=== PATIENT | male | born 1990 | race African-American/Black ===

== ENCOUNTER 2020-12-17 10:29 | Emergency (ER) | payer MEDICAID, SELFPAY ==
[2020-12-17 11:09] VITALS: BP 164/92; PULSE 102; RESP 20; TEMP 36.7; O2SAT 96; BMI 61.0
--- NOTE | 2020-12-17 13:45 | ED.GENADULT ---
HPI - General Adult General Chief complaint: Skin/Abscess/Foreign Body Stated complaint: L KNEE LEAKING Time Seen by Provider: 12/17/20 13:36 Source: patient Mode of arrival: ambulatory Limitations: no limitations History of Present Illness HPI narrative: 30-year-old male who presents emergency department for evaluation of fluid leaking from my leg . Patient states that both his legs are very swollen. He states that the swelling is gotten worse since August 2020 ( 4 months). He states that he had breakdown of the skin on his left posterior calf region and this area of breakdown has been leaking fluid. He states that the fluid leak is gotten worse. He states that he does have constant, bilateral pain in his lower extremities. He denied fever, chills, chest pain, shortness of breath. He denied nausea or vomiting. Related Data Previous Rx's Medication Instructions Recorded furosemide [Lasix] 80 mg PO DAILY #30 tab 12/17/20 Allergies Allergy/AdvReac Type Severity Reaction Status Date / Time No Known Allergies Allergy Unverified 03/05/20 16:26 Review of Systems Review of Systems: Yes all other systems are reviewed and are negative [facility] Past Medical History [facility] Narrative: Past medical history: Morbid obesity. Social history: He denies tobacco, alcohol and drug use. Medical History (Updated 12/17/20 @ 16:46 by Madi Knutson MD) No known health problems Social History Social History Advance Directives: Yes Advance Directives Information Provided: No Advance Directives on File: No Physical Exam Vital Signs: Vital Signs: Last Vital Signs Temp 98.1 F 12/17/20 11:09 Pulse 102 H 12/17/20 11:09 Resp 20 12/17/20 11:09 BP 164/92 H 12/17/20 11:09 Pulse Ox 96 12/17/20 11:09 Body Mass Index 61.0 Const: General: cooperative Nutritional Appearance: obese morbidly obese Orientation/consciousness: oriented to person and oriented to place Limitations: no limitations HENMT: Head: Yes normal to inspection, Yes normocephalic and Yes atraumatic Ears: external ears normal General nose exam: Normal external nose present Face and sinus: Yes normal facial exam Mouth: Normal oral and palatal mucosa present Throat: Yes posterior oropharynx normal Eyes: Periorbital: periorbital findings normal Eyelids: Yes eyelids normal Conjunctivae: conjunctivae normal Sclerae: sclerae normal Corneas: corneas normal Pupils: Equal, round and reactive pupils present Direct Ophthalmoscopy: normal light reflex Neck: Neck: Yes full ROM, Yes no lymphadenopathy, Yes no meningeal signs, Yes trachea midline and Yes supple Chest: Chest palpation & inspection: normal inspection of the chest and normal palpation of entire chest wall Resp: Effort & Inspection: normal respiratory effort and able to speak in complete sentences Auscultation: clear to auscultation bilaterally Cardio: Rate: regular rate Rhythm: regular rhythm Heart sounds: S1 normal heart sound present, S2 normal heart sound present and no murmurs GI: Inspection: Yes normal to inspection Palpation (GI): Soft to palpation, nontender, no guarding, not rigid and No hepatosplenomegaly present : General: Yes no CVA tenderness Back/Spine/Pelvis: Back: no CVA tenderness Cervical Spine: normal cervical lordosis Thoracic/Lumbar Spine: thoracic and lumbar spine normal to inspection Neuro: General: oriented to person, oriented to place and no meningeal signs Cranial nerves: Yes CN's II-XII intact bilaterally and Yes Equal, round and reactive pupils present Cognition (Neuro): normal cognition Motor exam (neuro): 5/5 motor strength present throughout Extrem: Other: Patient's lower extremities are large, they do appear to be swollen he has trace pitting edema bilaterally, the patient has breakdown of the skin in the left posterior calf area, this area is leaking yellow fluid, it does not appear to be infected.. Psych: Appearance: well kempt Mental Status: mental status grossly normal Speech and movement: Normal speech and movement present Affect: normal affect Attitude: cooperative Thought process: Normal thought process present Thought content: Normal thought content present Course Course Course Narrative: 30-year-old male who presents emergency department for evaluation of pain and swelling was lower extremities x4 months with leakage of fluid from the left lower extremity x4 months. Patient's physical examination revealed morbid obesity with peripheral edema to both lower extremityand breakdown of the skin over the posterior aspect of the left calf leakage of yellowish fluid. I did order laboratory evaluation includes CBC, CMP and a urinalysis. 1638: The patient's CBC was normal. His comprehensive metabolic panel revealed normal kidney function and normal LFTs. The patient will be started on Lasix 80 mg once a day for 1 month. He will be referred to the wound clinic for evaluation of his nonhealing wound of his left calf area. Medical Decision Making Lab Data Result diagrams: 12/17/20 13:50 12/17/20 13:50 Labs: Lab Results 12/17/20 12/17/20 Range/Units 13:50 13:50 WBC 6.9 (4.8-10.8) X10*3/uL RBC 4.83 (4.60-5.80) X10*6/uL Hgb 13.6 L (14.0-18.0) g/dl Hct 43.6 (42-52) % MCV 90.3 (80-98) fL MCH 28.2 (27.0-33.0) pg MCHC 31.2 (31.0-36.0) g/dl RDW 15.1 (11.0-16.0) % Plt Count 310 (160-400) X10*3/uL MPV 9.4 (9.4-12.4) fL Immature Gran % (Auto) 0.6 H (0.0-0.4) % Neut % (Auto) 57.7 (45-73) % Lymph % (Auto) 32.8 (20-40) % [place] % (Auto) 8.3 (2-11) % Eos % (Auto) 0.3 (0-4) % Baso % (Auto) 0.3 (0-2) % Lymph # (Auto) 2.3 (1.2-4.9) X10*3/uL [place] # (Auto) 0.6 (0.1-1.2) X10*3/uL Eos # (Auto) 0.0 (0.0-0.4) X10*3/uL Baso # (Auto) 0.0 (0.0-0.2) X10*3/uL Abs Immat Gran (auto) 0.04 H (0.00-0.03) X10*3/uL Absolute Neuts (auto) 4.0 (2.0-8.3) X10*3/uL Absolute Nucleated RBC 0.000 (0.0-0.012) X10*3/uL Nucleated RBC % (auto) 0.0 (0.0-0.2) /100WBC Sodium 142 (135-145) mmol/L Potassium 4.6 (3.3-5.1) mmol/L Chloride 109 H (96-108) mmol/L Carbon Dioxide 26 (22-29) mmol/L Anion Gap 12 (12-20) BUN 9 (9-16) mg/dL Creatinine 1.02 (0.5-1.4) mg/dL Estim Creat Clear Calc 188.5 Estimated GFR > 60 Random Glucose 92 (60-115) mg/dL Calcium 9.9 (8.4-10.2) mg/dL Total Bilirubin 0.5 (0.0-1.0) mg/dL AST 17 (5-37) U/L ALT 20 (0-40) U/L Alkaline Phosphatase 101 (39-117) U/L Total Protein 7.5 (6.5-8.0) g/dL Albumin 3.7 (3.5-5.0) g/dL Discharge Plan Discharge Clinical Impression: Edema, peripheral Non-healing wound of lower extremity Qualifiers: Laterality: left Patient Disposition: Home, Self-Care Instructions: Leg Edema (ED) Additional Instructions: The patient left emergency department prior to getting his discharge papers. I did call his house and did discuss with his grandmother the treatment plan in the follow-up plan. Prescriptions: New furosemide [Lasix] 80 mg tablet 80 mg PO DAILY Qty: 30 RF: 0 Referrals: Estela Westbrook PA [Physician Pattern Technician] - 1 week ( peripheral edema, non-healing wound to left posterior calf, started on Lasix 60 mg once a day for 1 month. patient needs evaluation for non-healing wound)
[2020-12-17 13:53] LABS: MANUAL DIFF FLAG NO
[2020-12-17 13:55] LABS: Basophils Percent Auto 0.3 % (0-2); Eosinophils Percent Auto 0.3 % (0-4); Hematocrit 43.6 % (42-52); Hemoglobin 13.6 g/dl (14.0-18.0); Imm Gran Abs Auto 0.04 X10*3/uL (0.00-0.03); Imm Gran Pct Auto 0.6 % (0.0-0.4); Lymphocytes Absolute Auto 2.3 X10*3/uL (1.2-4.9); Lymphocytes Percent Auto 32.8 % (20-40); Mean Corpuscular HGB Conc 31.2 g/dl (31.0-36.0); Mean Corpuscular Hemoglobin 28.2 pg (27.0-33.0); Mean Corpuscular Volume 90.3 fL (80-98); Mean Platelet Volume 9.4 fL (9.4-12.4); Monocytes Absolute Auto 0.6 X10*3/uL (0.1-1.2); Monocytes Percent Auto 8.3 % (2-11); Neutrophils Percent Auto 57.7 % (45-73); Platelet Count 310 X10*3/uL (160-400); Red Blood Count 4.83 X10*6/uL (4.60-5.80); Red Cell Distribution Width 15.1 % (11.0-16.0); White Blood Count 6.9 X10*3/uL (4.8-10.8)
[2020-12-17 14:21] LABS: Alanine Aminotransferase 20 U/L (0-40); Albumin Level 3.7 g/dL (3.5-5.0); Alkaline Phosphatase 101 U/L (39-117); Anion Gap 12 (12-20); Aspartate Amino Transferase 17 U/L (5-37); Bilirubin Total 0.5 mg/dL (0.0-1.0); Blood Urea Nitrogen 9 mg/dL (9-16); Calcium 9.9 mg/dL (8.4-10.2); Carbon Dioxide 26 mmol/L (22-29); Chloride 109 mmol/L (96-108); Creatinine Clr Calc Pharmacy 188.5; Estimated Glomerular Filt Rate > 60; Glucose Random 92 mg/dL (60-115); Potassium 4.6 mmol/L (3.3-5.1); Sodium 142 mmol/L (135-145); Total Protein 7.5 g/dL (6.5-8.0)
== END 2020-12-17 17:02 | disposition home or self-care (01) ==
PROVIDERS: Emergency Provider Emergency Medicine Emergency Medical Services
DX: R60.0 Localized edema (principal); E66.01 Morbid (severe) obesity due to excess calories; Z68.44 Body mass index [BMI] 60.0-69.9, adult
CPT/HCPCS: 36415; 80053; 85025; 99283

== ENCOUNTER 2021-02-02 14:05 | Inpatient (IN) | payer MEDICAID, SELFPAY ==
--- NOTE | ~2021-02-02 | US_ITS ---
EXAMINATION: US VENOUS ULTRASOUND WITH DOPPLER LOWER EXTREMITY, LEFT CLINICAL INFORMATION: Left lower extremity pain. COMPARISON: None TECHNIQUE: Ultrasound of the deep veins is performed from the hip to the calf with compression sonography and color and pulse Doppler assessment. Spectral analysis with color-flow imaging is performed. Imaging is significantly limited due to body habitus. FINDINGS: Due to technical limitations, the left common femoral, proximal greater saphenous, profunda femoral, proximal femoral, posterior tibial and peroneal veins are not visualized. The mid and distal femoral and popliteal vein segments show pulse and color Doppler flow and are as well poorly visualized on grayscale imaging. There is no significant popliteal fossa cyst. If the patient's symptoms persist, followup ultrasound in 5 days 7 days might be of value to exclude proximal propagation from a non-visualized calf vein. US/US venous duplex LE IMPRESSION: Significantly limited examination, with nonvisualization of multiple left lower extremity venous segments, as above. Faint patency is demonstrated with color Doppler flow of the left mid and distal femoral and popliteal veins.
--- NOTE | ~2021-02-02 | XR_ITS ---
EXAMINATION: XR CHEST CLINICAL INFORMATION: Tachycardia, edema COMPARISON: Chest radiographs 12/09/2018 TECHNIQUE: Portable upright AP view of the chest was obtained. FINDINGS: There are low lung volumes. The lungs appear grossly clear with no airspace consolidation or groundglass opacity. No vascular congestion or effusion. The heart is normal in size. The hilar and mediastinal contours and visualized bony structures are unremarkable. XR/XR chest 1V IMPRESSION: Unremarkable examination.
[2021-02-02 14:09] VITALS: PULSE 135; RESP 18; O2SAT 96; BMI 67.8
[2021-02-02 14:17] VITALS: BP 136/57
--- NOTE | 2021-02-02 14:36 | ECG_ITS ---
Test Reason : TACHYCARDIA Blood Pressure : / mmHG Vent. Rate : 131 BPM Atrial Rate : 131 BPM P-R Int : 142 ms QRS Dur : 088 ms QT Int : 294 ms P-R-T Axes : 058 033 021 degrees QTc Int : 434 ms Sinus tachycardia Otherwise normal ECG No previous ECGs available Referred By: Generic ED Physician Electronically Signed By:AURA ROBLEDO
--- NOTE | 2021-02-02 14:56 | ED.GENADULT ---
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 No vomiting no diarrhea no abdominal pain no other symptoms Related Data Previous Rx's Medication Instructions Recorded furosemide 80 mg tablet (Lasix) 80 mg PO DAILY #30 tab 12/17/20 Allergies Allergy/AdvReac Type Severity Reaction Status Date / Time No Known Allergies Allergy Verified 02/02/21 14:14 Review of Systems Review of Systems: Yes all other systems are reviewed and are negative [facility] Past Medical History Medical History No known health problems Social History Social History Advance Directives: No Advance Directives Information Provided: Yes Physical Exam Vital Signs: Vital Signs: Last Vital Signs Temp 103.2 F H 02/02/21 16:09 Pulse 126 H 02/02/21 16:09 Resp 14 02/02/21 16:09 BP 146/47 H 02/02/21 16:09 Pulse Ox 97 02/02/21 16:09 Body Mass Index 67.8 Appearance: Alert. Oriented X3. No acute distress. Morbidly obese no distress Eyes: No pallor or icterus ENT: Pharynx normal. Oral Mucosa moist Neck: Normal inspection. Neck supple. CVS: Normal heart rate and rhythm. Pulses normal. Respiratory: No respiratory distress. Equal air entry bilateral, no wheezing/rales/rhonchi Abdomen: Soft and nontender. Bowel sounds are present, no mass palpable, no CVA tenderness Skin: Skin warm and dry. Normal skin color. Normal skin turgor. Extremities: Nonpitting lymphedema bilateral lower extremity, 4 x 4 cm superficial ulcer with granulation tissue at back of the left calf. Erythema and warmth of the left leg all the way to the knee with tenderness Neuro: Oriented X 3. No motor deficit. No sensory deficit.No cerebellar signs , cranial nerves II-XII intact Medical Decision Making MDM Narrative Medical decision making narrative: Patient with left leg cellulitis with sepsis not in septic shock will admit patient for IV antibiotics 3 L of IV fluid were given according to ideal body weight Lab Data Lab results reviewed: Yes I reviewed the patient's lab results. Result diagrams: 02/02/21 14:53 02/02/21 14:53 Labs: Lab Results 02/02/21 02/02/21 02/02/21 Range/Units 14:53 14:53 14:53 WBC 15.0 H (4.8-10.8) X10*3/uL RBC 4.33 L (4.60-5.80) X10*6/uL Hgb 12.2 L (14.0-18.0) g/dl Hct 38.1 L (42-52) % MCV 88.0 (80-98) fL MCH 28.2 (27.0-33.0) pg MCHC 32.0 (31.0-36.0) g/dl RDW 15.3 (11.0-16.0) % Plt Count 244 (160-400) X10*3/uL MPV 9.3 L (9.4-12.4) fL Immature Gran % (Auto) Cancelled Neut % (Auto) Cancelled Lymph % (Auto) Cancelled [place] % (Auto) Cancelled Eos % (Auto) Cancelled Baso % (Auto) Cancelled Lymph # (Auto) Cancelled [place] # (Auto) Cancelled Eos # (Auto) Cancelled Baso # (Auto) Cancelled Abs Immat Gran (auto) Cancelled Absolute Neuts (auto) Cancelled Absolute Nucleated RBC 0.000 (0.0-0.012) X10*3/uL Nucleated RBC % (auto) 0.0 (0.0-0.2) /100WBC Neutrophils % (Manual) 50 (45-73) % Band Neutrophils % 41 H (3-5) % Lymphocytes % (Manual) 1 L (20-40) % Monocytes % (Manual) 1 L (2-11) % Metamyelocytes % 7 % Abs Neuts (Manual) 13.7 H (2.2-7.9) X10*3/uL Lymphocytes # (Manual) 0.2 L (0.6-4.8) X10*3/uL Monocytes # (Manual) 0.2 (0.0-1.2) X10*3/uL Metamyelocytes # 1.1 X10*3/uL Platelet Estimate NORMAL (NORMAL) Plt Morphology Comment NOTED RBC Morphology NORMAL Sodium 134 L (135-145) mmol/L Potassium 4.2 (3.3-5.1) mmol/L Chloride 99 (96-108) mmol/L Carbon Dioxide 26 (22-29) mmol/L Anion Gap 13 (12-20) BUN 19 H D (9-16) mg/dL Creatinine 1.50 H (0.5-1.4) mg/dL Estim Creat Clear Calc 137.2 Estimated GFR 54 Random Glucose 99 (60-115) mg/dL Lactic Acid (0.5-2.0) mmol/L Calcium 9.0 D (8.4-10.2) mg/dL Troponin I High Sens 16.0 (<3.5-35.0) ng/L COVID-19 (AILEEN) (Negative) COVID-19 Clin Com 02/02/21 02/02/21 Range/Units 15:31 15:34 WBC (4.8-10.8) X10*3/uL RBC (4.60-5.80) X10*6/uL Hgb (14.0-18.0) g/dl Hct (42-52) % MCV (80-98) fL MCH (27.0-33.0) pg MCHC (31.0-36.0) g/dl RDW (11.0-16.0) % Plt Count (160-400) X10*3/uL MPV (9.4-12.4) fL Immature Gran % (Auto) Neut % (Auto) Lymph % (Auto) [place] % (Auto) Eos % (Auto) Baso % (Auto) Lymph # (Auto) [place] # (Auto) Eos # (Auto) Baso # (Auto) Abs Immat Gran (auto) Absolute Neuts (auto) Absolute Nucleated RBC (0.0-0.012) X10*3/uL Nucleated RBC % (auto) (0.0-0.2) /100WBC Neutrophils % (Manual) (45-73) % Band Neutrophils % (3-5) % Lymphocytes % (Manual) (20-40) % Monocytes % (Manual) (2-11) % Metamyelocytes % % Abs Neuts (Manual) (2.2-7.9) X10*3/uL Lymphocytes # (Manual) (0.6-4.8) X10*3/uL Monocytes # (Manual) (0.0-1.2) X10*3/uL Metamyelocytes # X10*3/uL Platelet Estimate (NORMAL) Plt Morphology Comment RBC Morphology Sodium (135-145) mmol/L Potassium (3.3-5.1) mmol/L Chloride (96-108) mmol/L Carbon Dioxide (22-29) mmol/L Anion Gap (12-20) BUN (9-16) mg/dL Creatinine (0.5-1.4) mg/dL Estim Creat Clear Calc Estimated GFR Random Glucose (60-115) mg/dL Lactic Acid 2.2 H* (0.5-2.0) mmol/L Calcium (8.4-10.2) mg/dL Troponin I High Sens (<3.5-35.0) ng/L COVID-19 (AILEEN) Negative (Negative) COVID-19 Clin Com See Note Discharge Plan Discharge Clinical Impression: Cellulitis Qualifiers: Site of cellulitis: extremity Site of cellulitis of extremity: lower extremity Laterality: left Qualified Code(s): L03.116 - Cellulitis of left lower limb Patient Disposition: Admitted As Inpatient
[2021-02-02 15:00] LABS: Hematocrit 38.1 % (42-52); Hemoglobin 12.2 g/dl (14.0-18.0); Mean Corpuscular Hemoglobin 28.2 pg (27.0-33.0); Mean Platelet Volume 9.3 fL (9.4-12.4); Platelet Count 244 X10*3/uL (160-400); Red Blood Count 4.33 X10*6/uL (4.60-5.80); Red Cell Distribution Width 15.3 % (11.0-16.0)
[2021-02-02 15:22] LABS: Anion Gap 13 (12-20); Blood Urea Nitrogen 19 mg/dL (9-16); Carbon Dioxide 26 mmol/L (22-29); Chloride 99 mmol/L (96-108); Creatinine Clr Calc Pharmacy 137.2; Estimated Glomerular Filt Rate 54; Glucose Random 99 mg/dL (60-115); Potassium 4.2 mmol/L (3.3-5.1); Sodium 134 mmol/L (135-145)
[2021-02-02 15:28] LABS: Band Neutrophils Percent 41 % (3-5); Lymphocytes Absolute Manual 0.2 X10*3/uL (0.6-4.8); Lymphocytes Percent Manual 1 % (20-40); Metamyelocytes Absolute 1.1 X10*3/uL; Metamyelocytes Percent 7 %; Monocytes Absolute Manual 0.2 X10*3/uL (0.0-1.2); Monocytes Percent Manual 1 % (2-11); Neutrophils Absolute Manual 13.7 X10*3/uL (2.2-7.9); Neutrophils Percent Manual 50 % (45-73); Platelet Estimate NORMAL (NORMAL); Platelet Morphology Comment NOTED; RBC Morphology NORMAL
[2021-02-02] MEDS: Piperacillin Sodium/Tazobactam 4.5 GM in 0.9 % Sodium Chloride 100 ML IV (15:40)
[2021-02-02] MEDS: 0.9 % Sodium Chloride 1,000 ML 999 ML IVCONT ×3 (15:41→18:05)
[2021-02-02 16:01] LABS: COVID-19 Test Negative (Negative); IDNOW Serial# 9DD0AD1C
[2021-02-02 16:09] VITALS: BP 146/47; PULSE 126; RESP 14; TEMP 39.6; O2SAT 97
[2021-02-02 16:09] LABS: Lactic Acid 2.2 mmol/L (0.5-2.0)
[2021-02-02] MEDS: Acetaminophen 325 MG TABLET 975 MG PO (16:22)
[2021-02-02] MEDS: Ketorolac Tromethamine 15 MG/ML VIAL IVPUSH (16:25)
[2021-02-02 17:35] LABS: Reflex Lactate? Lactic Acid Added
[2021-02-02 17:57] VITALS: BP 101/53; PULSE 115; RESP 22; TEMP 37.9; O2SAT 96
[2021-02-02 18:48] LABS: ~Lactic Acid-LAB USE ONLY 2.7 mmol/L (0.5-2.0)
[2021-02-02 20:18] LABS: Reflex Lactate? 2 Y
--- NOTE | 2021-02-02 20:52 | PC.NURSE ---
PT ALERT, RESPIRATIONS EASY, N/L. SKIN W/D. PT C/O WHEN WILL I GET TO MY ROOM? WILL CONTINUE TO MONITOR PT.
--- NOTE | 2021-02-02 20:54 | P.HPHOSP_ITS ---
History of Present Illness Date of Service: 02/02/21 Chief Complaint: Left leg pain 30-year-old male with history of morbid obesity, hypertension, who presented with left leg pain. History is from patient and from ED notes. Patient endorses that he started having left ankle pain yesterday morning. Pain is located just above his left ankle, 5/10 in intensity, to the point where he can hardly walk. He otherwise denies fever, chills, nausea, vomiting, chest pain, shortness of breath. Subsequently, he came to the ED. Review of Systems Constitutional: Constitutional: Denies chills, Denies fatigue, Denies fever(s), Denies headache(s), Denies weakness and Denies weight loss Eyes: Eyes: Denies blurry vision, Denies change in vision, Denies diplopia and Denies loss of vision ENT: Denies dysphagia, Denies vertigo, Denies dizziness, Denies headache(s), Denies hearing loss, Denies lip swelling and Denies sore throat Cardiovascular: Cardiovascular: Denies chest pain, Denies leg edema, Denies lightheadedness, Denies palpitations and Denies dyspnea Respiratory: Respiratory: Denies no additional respiratory complaints, Denies cough, Denies dyspnea and Denies wheezing Gastrointestinal: Gastrointestinal: Denies coffee ground emesis, Denies constipation, Denies dysphagia, Denies diarrhea, Denies nausea and Denies vomiting Genitourinary: Genitourinary: Denies dysuria Musculoskeletal: Musculoskeletal: Reports arthralgias, Reports joint swelling, Denies muscle weakness, Denies numbness and Denies tingling Integumentary/Breasts: Skin/Breast: Denies bleeding lesions, Denies new lesions and Denies rash Neurologic: Denies vertigo, Denies dizziness, Denies headache(s), Denies loss of vision, Denies numbness, Denies tingling and Denies weakness Psychiatric: Psychiatric: Denies anxiety and Denies depression Endocrine: Endocrine: Denies cold intolerance, Denies fatigue, Denies heat intolerance and Denies palpitations Hematologic/Lymphatic: Hematologic/Lymphatic: Denies easy bleeding, Denies easy bruising and Denies lymphadenopathy Allergic/Immunologic: Allergic/Immunologic: Denies lip swelling and Denies wheezing [facility] Medical History (Updated 02/02/21 @ 21:06 by German Andrade MD) HTN (hypertension) No known health problems Pertinent family history: Mother from an overdose. Otherwise was healthy. Paternal grandfather with hypertension Family history: reviewed and not pertinent Social History (Updated 02/02/21 @ 20:58 by German Andrade MD) Alcohol intake: never Patient Tobacco Use Status: Never used Tobacco Use of substances other than those prescribed or required for medical reasons: No Advance Directives: No Advance Directives Information Provided: Yes Meds Allergies Allergy/AdvReac Type Severity Reaction Status Date / Time No Known Allergies Allergy Verified 02/02/21 14:14 Active Medications: Current Medications Generic Name Dose Route Start Last Admin Trade Name Freq PRN Reason Stop Dose Admin Acetaminophen 650 mg 02/02/21 20:01 Acetaminophen 325 Mg Tablet PO Q6H PRN Pain, Mild (Pain Scale 1-3) Enoxaparin Sodium 40 mg 02/02/21 22:00 Enoxaparin Sodium 40 Mg/0.4 Ml Syringe SUBCUT Q24H [facility] Sodium Chloride 1,000 mls @ 100 mls/hr 02/02/21 20:15 Ns IVCONT 02/03/21 06:14 .Q10H [facility] Vancomycin HCl 1,250 mg/ 250 mls @ 166.667 mls/hr 02/03/21 05:00 Sodium Chloride IV Q12H [facility] Pharmacy Consult 1 each 02/02/21 20:05 Consult Rx Vancomycin Dosing MISCELLANE DAILY PRN Consult order Sodium Chloride 3 ml 02/03/21 00:00 0.9 % Sodium Chloride Flush 3 Ml Syringe IVFLUSH QSHIFT [facility] Physical Exam Vital Signs and Narrative: Vital Signs: Last Vital Signs Temp 100.2 F 02/02/21 17:57 Pulse 115 H 02/02/21 17:57 Resp 22 H 02/02/21 17:57 BP 101/53 L 02/02/21 17:57 Pulse Ox 96 02/02/21 17:57 Body Mass Index 67.8 Const: General: no acute distress, well developed and alert Nutritional Appearance: obese HENMT: Face and sinus: Yes normal facial exam and Yes face symmetric Mouth: Normal oral and palatal mucosa present and moist mucous membranes Throat: Yes posterior oropharynx normal and Yes tonsils normal Eyes: General: appearance normal, both eyes and all related structures Alignment and Position: alignment normal and position normal Sclerae: sclerae normal Pupils: Equal, round and reactive pupils present EOM: EOMs intact bilaterally Neck: Yes normal visual inspection, Yes full ROM and Yes no lymphadenopathy Lymphatic: no lymphadenopathy noted Chest: Chest palpation & inspection: normal inspection of the chest, no tend erness and No rash Resp: Effort & Inspection: normal respiratory effort and able to speak in complete sentences Auscultation: clear to auscultation bilaterally, no crackles, no rales, no rhonchi and no wheezes Cardio: Rate: regular rate Rhythm: regular rhythm Heart sounds: S1 normal heart sound present, S2 normal heart sound present, no murmurs and no rubs GI: Inspection: No distended Palpation (GI): Soft to palpation and nont franky Percussion: No tympanic to percussion Auscultation: normal bowel sounds Skin: Other: Left foot and ankle with increased calor, tenderness to palpation, erythema, swelling. There is a 2 cm shallow ulcer in the posterior left lower extremity that appears to be free from infection (with a clean base). Patient does have bilateral lower extremity skin changes consistent with chronic venous stasis, and does have bilateral lower extremity swelling in general. Neuro: Cranial nerves: Yes CN's II-XII intact bilaterally, Yes Equal, round and reactive pupils present and Yes Bilaterally intact EOM present Extrem: General: Yes full ROM, Yes no pedal edema, Yes pedal edema and Yes venous stasis dermatitis Psych: Appearance: grossly normal Mental Status: mental status grossly no rmal Speech and movement: Normal speech and movement present Affect: normal affect Thought process: Normal thought process present Results Labs CBC and Chem 7: 02/02/21 14:53 02/02/21 14:53 Labs: Laboratory Results - last 24 hr 02/02/21 02/02/21 02/02/21 14:53 14:53 14:53 MCV 88.0 MCH 28.2 MCHC 32.0 RDW 15.3 Plt Count 244 MPV 9.3 L Immature Gran % (Auto) Cancelled Neut % (Auto) Cancelled Lymph % (Auto) Cancelled [place] % (Auto) Cancelled Eos % (Auto) Cancelled Baso % (Auto) Cancelled Lymph # (Auto) Cancelled [place] # (Auto) Cancelled Eos # (Auto) Cancelled Baso # (Auto) Cancelled Abs Immat Gran (auto) Cancelled Absolute Neuts (auto) Cancelled Absolute Nucleated RBC 0.000 Nucleated RBC % (auto) 0.0 Neutrophils % (Manual) 50 Band Neutrophils % 41 H Lymphocytes % (Manual) 1 L Monocytes % (Manual) 1 L Metamyelocytes % 7 Abs Neuts (Manual) 13.7 H Lymphocytes # (Manual) 0.2 L Monocytes # (Manual) 0.2 Metamyelocytes # 1.1 Platelet Estimate NORMAL Plt Morphology Comment NOTED RBC Morphology NORMAL Anion Gap 13 Estim Creat Clear Calc 137.2 Estimated GFR 54 Random Glucose 99 Lactic Acid Lactic Acid Fup @ 2Hr Calcium 9.0 D Troponin I High Sens 16.0 COVID-19 (AILEEN) COVID-19 [place] Com 02/02/21 02/02/21 02/02/21 15:31 15:34 18:13 MCV MCH MCHC RDW Plt Count MPV Immature Gran % (Auto) Neut % (Auto) Lymph % (Auto) [place] % (Auto) Eos % (Auto) Baso % (Auto) Lymph # (Auto) [place] # (Auto) Eos # (Auto) Baso # (Auto) Abs Immat Gran (auto) Absolute Neuts (auto) Absolute Nucleated RBC Nucleated RBC % (auto) Neutrophils % (Manual) Band Neutrophils % Lymphocytes % (Manual) Monocytes % (Manual) Metamyelocytes % Abs Neuts (Manual) Lymphocytes # (Manual) Monocytes # (Manual) Metamyelocytes # Platelet Estimate Plt Morphology Comment RBC Morphology Anion Gap Estim Creat Clear Calc Estimated GFR Random Glucose Lactic Acid 2.2 H* Lactic Acid Fup @ 2Hr 2.7 H* Calcium Troponin I High Sens COVID-19 (AILEEN) Negative COVID-19 [place] Com See Note 02/02/21 18:48 MCV MCH MCHC RDW Plt Count MPV Immature Gran % (Auto) Neut % (Auto) Lymph % (Auto) [place] % (Auto) Eos % (Auto) Baso % (Auto) Lymph # (Auto) [place] # (Auto) Eos # (Auto) Baso # (Auto) Abs Immat Gran (auto) Absolute Neuts (auto) Absolute Nucleated RBC Nucleated RBC % (auto) Neutrophils % (Manual) Band Neutrophils % Lymphocytes % (Manual) Monocytes % (Manual) Metamyelocytes % Abs Neuts (Manual) Lymphocytes # (Manual) Monocytes # (Manual) Metamyelocytes # Platelet Estimate Plt Morphology Comment RBC Morphology Anion Gap Estim Creat Clear Calc Estimated GFR Random Glucose Lactic Acid Lactic Acid Fup @ 2Hr Calcium Troponin I High Sens 22.0 COVID-19 ([facility]LEEN) COVID-19 Clin Com Imaging Radiologist's Impressions: Impressions Chest X-Ray 02/02/21 14:36 IMPRESSION: Unremarkable examination. Venous Duplex 02/02/21 15:11 IMPRESSION: Significantly limited examination, with nonvisualization of multiple left lower extremity venous segments, as above. Faint patency is demonstrated with color Doppler flow of the left mid and distal femoral and popliteal veins. Assessment and Plan (1) Sepsis: Status: Acute -patient qualifies for sepsis given fever, tachycardia, tachypnea, leukocytosis, lactic acidosis, MAGO, and cellulitis -secondary to cellulitis, treatment and workup as per below -status post 3 L IV fluids in the ED (2) Cellulitis: Qualifiers: Laterality: left Site of cellulitis: extremity Site of cellulitis of extremity: lower extremity Qualified Code(s): L03.116 - Cellulitis of left lower limb Status: Acute -left lower extremity pain swelling and erythema and calor consistent with cellulitis -status post IV vancomycin and IV Zosyn in the ED; I will hold further doses of IV Zosyn -continue IV vancomycin -left lower extremity venous Doppler was limited (likely secondary to body habitus) but did not show conclusive evidence of left lower extremity DVT -wound care consult placed for left lower extremity (patient is fairly mobile given his morbid obesity, perhaps wound care can give him some tips on keeping the wound clean) (3) Lactic acidosis: Status: Acute -lactic acid level as high as 2.7 in the ED -status post IV fluids and antibiotics as per above new line-will continue IV vancomycin, also continuing patient on normal saline at 100 cc/HR x1 L total overnight -repeat lactic acid level in the morning (4) MAGO (acute kidney injury): Status: Acute -creatinine on admission was 1.5; unknown baseline -IV fluids as per above, daily labs (5) HTN (hypertension): Status: Acute -continue home medications (6) Morbid obesity: Status: Acute -noted. Ultimately, this is his greatest health concern long-term. Quality Stroke Does the patient have a stroke diagnosis?: No VTE Prior VTE?: No VTE Risk Level:: Medical - moderate - high VTE Device Contraindication: Procedure Contraindicated VTE Drug Contraindication: N/A - Med Ordered
--- NOTE | 2021-02-02 21:17 | PHA.MEDREC ---
Pharmacy Consult ? Medication Reconciliation Pharmacy has completed the medication reconciliation.
--- NOTE | 2021-02-02 21:47 | PC.NURSE ---
REPORT TO PAULA BOX PT AWAITING TO GO TO FLOOR. WILL CONTINUE TO MONITOR PT.
[2021-02-02 22:08] VITALS: BP 123/70; PULSE 113; RESP 20; TEMP 36.2; O2SAT 97
[2021-02-02 22:15] VITALS: BMI 67.6
[2021-02-02] MEDS: Enoxaparin Sodium 40 MG/0.4 ML SYRINGE SUBCUT (22:39)
[2021-02-02] MEDS: 0.9 % Sodium Chloride 1,000 ML 100 ML IVCONT (22:41)
[2021-02-02] MEDS: 0.9 % Sodium Chloride Flush 3 ML SYRINGE IVFLUSH (22:41)
[2021-02-02 23:19] VITALS: BP 183/87; PULSE 117; RESP 20; TEMP 37.6; O2SAT 96
[2021-02-02] MEDS: Acetaminophen 325 MG TABLET 650 MG PO (23:28)
[2021-02-03] VITALS (10 sets, daily range): BP systolic 102–152; BP diastolic 54–95; PULSE 76–126; RESP 20–24; TEMP 36.1–38.8; O2SAT 93–98; BMI 84.4
--- NOTE | 2021-02-03 | ECG_ITS ---
Test Reason : Tachycardia Blood Pressure : / mmHG Vent. Rate : 118 BPM Atrial Rate : 118 BPM P-R Int : 152 ms QRS Dur : 086 ms QT Int : 318 ms P-R-T Axes : 064 068 028 degrees QTc Int : 445 ms Sinus tachycardia Otherwise normal ECG When compared with ECG of 02-FEB-2021 15:07, No significant change was found Referred By: German Andrade Electronically Signed By:AURA ROBLEDO
--- NOTE | 2021-02-03 01:03 | PM.EVENT ---
Event Note Date of Service: 02/03/21 Event Note: Called to room, patient with heart rates in the 140s and 150s. EKG revealed sinus tachycardia. Patient denies history of blood clots, denies shortness of breath or chest pain. At this point, I am concerned about DVT/PE given the fact that the patient has left lower extremities pain and swelling, fever, sinus tachycardia, as well as because lower extremity Doppler in the ED was inconclusive. I have ordered the following: -Lovenox therapeutic dosing at 1 mg/kg q.12 hours Because of the patient's morbid obesity, I am not entirely clear if he will fit into the CT scanner (for ACTH chest to rule out PE). I will order this anyway, and hope for the best. Either way, the patient is covered with Lovenox for now.
[2021-02-03 01:34] LABS: Hematocrit 36.7 % (42-52); Mean Corpuscular HGB Conc 32.7 g/dl (31.0-36.0); Mean Corpuscular Hemoglobin 28.5 pg (27.0-33.0); Mean Corpuscular Volume 87.2 fL (80-98); Mean Platelet Volume 9.2 fL (9.4-12.4); Platelet Count 221 X10*3/uL (160-400); Red Blood Count 4.21 X10*6/uL (4.60-5.80); Red Cell Distribution Width 15.5 % (11.0-16.0); White Blood Count 17.1 X10*3/uL (4.8-10.8)
[2021-02-03 01:40] LABS: INTERNATIONAL NORM RATIO 1.9 (0.9-1.1); Prothrombin Time 21.5 SEC (9.9-13.0)
[2021-02-03] MEDS: Enoxaparin Sodium 150 MG/ML SYRINGE 225 MG SUBCUT (01:41)
[2021-02-03 02:03] LABS: ~Lactic Acid-LAB USE ONLY 2.3 mmol/L (0.5-2.0)
[2021-02-03] MEDS: vancomycin HCL 1,250 MG in 0.9 % Sodium Chloride 250 ML 166.67 MG IV ×2 (05:18→16:12)
[2021-02-03 07:29] LABS: Hematocrit 34.9 % (42-52); Mean Corpuscular HGB Conc 31.5 g/dl (31.0-36.0); Mean Corpuscular Volume 88.8 fL (80-98); Mean Platelet Volume 9.6 fL (9.4-12.4); Platelet Count 228 X10*3/uL (160-400); Red Blood Count 3.93 X10*6/uL (4.60-5.80); Red Cell Distribution Width 15.5 % (11.0-16.0); White Blood Count 16.8 X10*3/uL (4.8-10.8)
[2021-02-03 08:06] LABS: Band Neutrophils Percent 12 % (3-5); Lymphocytes Absolute Manual 0.5 X10*3/uL (0.6-4.8); Lymphocytes Percent Manual 3 % (20-40); Neutrophils Absolute Manual 16.3 X10*3/uL (2.2-7.9); Neutrophils Percent Manual 85 % (45-73); Platelet Estimate NORMAL (NORMAL)
[2021-02-03 08:07] LABS: Large Platelet PRESENT
[2021-02-03 08:08] LABS: Dohle Bodies PRESENT
[2021-02-03 08:09] LABS: Toxic Vacuolation PRESENT
[2021-02-03 08:10] LABS: RBC Morphology NOTED
[2021-02-03 08:17] LABS: Anion Gap 16 (12-20); Blood Urea Nitrogen 18 mg/dL (9-16); Calcium 8.5 mg/dL (8.4-10.2); Carbon Dioxide 24 mmol/L (22-29); Chloride 100 mmol/L (96-108); Creatinine Clr Calc Pharmacy 182.7; Estimated Glomerular Filt Rate > 60; Glucose Random 85 mg/dL (60-115); Potassium 3.7 mmol/L (3.3-5.1); Sodium 136 mmol/L (135-145)
[2021-02-03] MEDS: Acetaminophen 325 MG TABLET 650 MG PO ×2 (09:13→16:12)
--- NOTE | 2021-02-03 09:40 | MHC.CM.PN ---
CM met with Patient at bedside. Patient lives in a house with his Grandmother, Father/HCP/[place] @ [phone], Brother and Sister. 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 02/05/21 was going to be Patient's first appointment with [facility] and a referral will also be made to [facility]. PCP is Dr. Jaclyn Guillen. Patient's goal is to return home with services (Wound Clinic and/or [facility]) and CM has initiated and will follow for dc planning.
--- NOTE | 2021-02-03 11:14 | PC.NURSE ---
Skin wound assessment completed today. Patient has a Stage 2 pressure ulcer measuring 0.8 x 0.8 x 0.1. Clean and granulated-Woundres gel applied covered with foam dressing. Patient also has cellulitis to posterior left lower leg with 2 open areas with a combined measurement of 3.6 x 1.2 x 0.1. Draining large serous fluid. Left foot and lower leg are edematous. Triad applied to wounds covered with gauze, ABD pads, roll gauze and vita wrap. No other skin issues noted.
--- NOTE | 2021-02-03 11:45 | MHC.CLN ---
RE: CONSULT PT WITH INCREASED PROTEIN NEEDS R/T PRESSURE INJURY DIET RX: CARDIAC-RECOMMEND REGULAR DIET RECOMMEND ADDING GLUCERNA AND LI TO PROMOTE WOUND HEALING DIET AND SUPPLEMENT WILL PROMOTE SLOW WT LOSS WITH WOUND HEALING AND APPROPRIATE AT THIS TIME MONITOR PO INTAKE CLOSELY REFERRAL TO WEIGHT MANAGEMENT PROGRAM UPON DISCHARGE SEE ALSO CLINICAL NUTRITION ASSESSMENT
--- NOTE | 2021-02-03 14:31 | P.PNIM_ITS ---
Subjective Subjective Date of Service: 02/03/21 Interval History: no sob, feeling better today Constitutional Constitutional: Reports no additional constitutional complaints Eyes Eyes: Reports no additional eye complaints Physical Exam Vital Signs: Vital Signs: Last Vital Signs Temp 97.4 F 02/03/21 11:40 Pulse 114 H 02/03/21 11:40 Resp 20 02/03/21 11:40 BP 128/69 02/03/21 11:40 Pulse Ox 96 02/03/21 11:40 Body Mass Index 84.4 General: AO X 3, no acute distress, morbidly obese Resp: CTA bilateral CVS: S1,S2,RRR GI: soft, non tender, non distended Neuro: motor grossly intact Psych: appropriate affect skin: bilateral lymphedema, ?Stage 2 pressure ulcer measuring 0.8 x 0.8 x 0.1,cellulitis to posterior left lower leg with 2 open areas with a combined measurement of 3.6 x 1.2 x 0.1 Objective Data Current Medications Generic Name Dose Route Start Last Admin Trade Name Freq PRN Reason Stop Dose Admin Acetaminophen 650 mg 02/02/21 20:01 02/03/21 09:13 Acetaminophen 325 Mg Tablet PO 650 mg Q6H PRN Administration Pain, Mild (Pain Scale 1-3) Vancomycin HCl 1,250 mg/ 250 mls @ 166.667 mls/hr 02/03/21 05:00 02/03/21 06:59 Sodium Chloride IV Infused Q12H [facility] Infusion Pharmacy Consult 1 each 02/02/21 20:05 Consult Rx Vancomycin Dosing MISCELLANE DAILY PRN Consult order Rivaroxaban 10 mg 02/04/21 09:00 Rivaroxaban 10 Mg Tablet PO DAILY [facility] Sodium Chloride 3 ml 02/03/21 00:00 02/03/21 07:35 0.9 % Sodium Chloride Flush 3 Ml Syringe IVFLUSH Not Given QSHIFT [facility] Labs CBC & Chem 7: 02/03/21 06:04 02/03/21 06:04 Labs: Laboratory Results - last 24 hr 02/02/21 02/02/21 02/02/21 14:53 14:53 14:53 MCV 88.0 MCH 28.2 MCHC 32.0 RDW 15.3 Plt Count 244 MPV 9.3 L Immature Gran % (Auto) Cancelled Neut % (Auto) Cancelled Lymph % (Auto) Cancelled [place] % (Auto) Cancelled Eos % (Auto) Cancelled Baso % (Auto) Cancelled Lymph # (Auto) Cancelled [place] # (Auto) Cancelled Eos # (Auto) Cancelled Baso # (Auto) Cancelled Abs Immat Gran (auto) Cancelled Absolute Neuts (auto) Cancelled Absolute Nucleated RBC 0.000 Nucleated RBC % (auto) 0.0 Neutrophils % (Manual) 50 Band Neutrophils % 41 H Lymphocytes % (Manual) 1 L Monocytes % (Manual) 1 L Metamyelocytes % 7 Abs Neuts (Manual) 13.7 H Lymphocytes # (Manual) 0.2 L Monocytes # (Manual) 0.2 Metamyelocytes # 1.1 Toxic Vacuolation Dohle Bodies Platelet Estimate NORMAL Large Platelets Plt Morphology Comment NOTED RBC Morphology NORMAL PT INR APTT Anion Gap 13 Estim Creat Clear Calc 137.2 Estimated GFR 54 Random Glucose 99 Lactic Acid Lactic Acid Fup @ 2Hr Lactic Acid Fup @ 4Hr Calcium 9.0 D Troponin I High Sens 16.0 COVID-19 (AILEEN) COVID-dooub 02/02/21 02/02/21 02/02/21 15:31 15:34 18:13 MCV MCH MCHC RDW Plt Count MPV Immature Gran % (Auto) Neut % (Auto) Lymph % (Auto) [place] % (Auto) Eos % (Auto) Baso % (Auto) Lymph # (Auto) [place] # (Auto) Eos # (Auto) Baso # (Auto) Abs Immat Gran (auto) Absolute Neuts (auto) Absolute Nucleated RBC Nucleated RBC % (auto) Neutrophils % (Manual) Band Neutrophils % Lymphocytes % (Manual) Monocytes % (Manual) Metamyelocytes % Abs Neuts (Manual) Lymphocytes # (Manual) Monocytes # (Manual) Metamyelocytes # Toxic Vacuolation Dohle Bodies Platelet Estimate Large Platelets Plt Morphology Comment RBC Morphology PT INR APTT Anion Gap Estim Creat Clear Calc Estimated GFR Random Glucose Lactic Acid 2.2 H* Lactic Acid Fup @ 2Hr 2.7 H* Lactic Acid Fup @ 4Hr Calcium Troponin I High Sens COVID-19 (AILEEN) Negative COVID-dooub See Note 02/02/21 02/03/21 02/03/21 18:48 01:22 01:22 MCV 87.2 MCH 28.5 MCHC 32.7 RDW 15.5 Plt Count 221 MPV 9.2 L Immature Gran % (Auto) Neut % (Auto) Lymph % (Auto) [place] % (Auto) Eos % (Auto) Baso % (Auto) Lymph # (Auto) [place] # (Auto) Eos # (Auto) Baso # (Auto) Abs Immat Gran (auto) Absolute Neuts (auto) Absolute Nucleated RBC 0.000 Nucleated RBC % (auto) 0.0 Neutrophils % (Manual) Band Neutrophils % Lymphocytes % (Manual) Monocytes % (Manual) Metamyelocytes % Abs Neuts (Manual) Lymphocytes # (Manual) Monocytes # (Manual) Metamyelocytes # Toxic Vacuolation Dohle Bodies Platelet Estimate Large Platelets Plt Morphology Comment RBC Morphology PT INR APTT Anion Gap Estim Creat Clear Calc Estimated GFR Random Glucose Lactic Acid Lactic Acid Fup @ 2Hr Lactic Acid Fup @ 4Hr 2.3 H* Calcium Troponin I High Sens 22.0 COVID-19 (AILEEN) COVID-dooub 02/03/21 02/03/21 02/03/21 01:22 06:04 06:04 MCV 88.8 MCH 28.0 MCHC 31.5 RDW 15.5 Plt Count 228 MPV 9.6 Immature Gran % (Auto) Cancelled Neut % (Auto) Cancelled Lymph % (Auto) Cancelled [place] % (Auto) Cancelled Eos % (Auto) Cancelled Baso % (Auto) Cancelled Lymph # (Auto) Cancelled [place] # (Auto) Cancelled Eos # (Auto) Cancelled Baso # (Auto) Cancelled Abs Immat Gran (auto) Cancelled Absolute Neuts (auto) Cancelled Absolute Nucleated RBC 0.000 Nucleated RBC % (auto) 0.0 Neutrophils % (Manual) 85 H Band Neutrophils % 12 H Lymphocytes % (Manual) 3 L Monocytes % (Manual) Metamyelocytes % Abs Neuts (Manual) 16.3 H Lymphocytes # (Manual) 0.5 L Monocytes # (Manual) Metamyelocytes # Toxic Vacuolation PRESENT Dohle Bodies PRESENT Platelet Estimate NORMAL Large Platelets PRESENT Plt Morphology Comment Not Reportable RBC Morphology NOTED PT 21.5 H INR 1.9 H APTT 25.0 Anion Gap Estim Creat Clear Calc Estimated GFR Random Glucose Lactic Acid 2.0 Lactic Acid Fup @ 2Hr Lactic Acid Fup @ 4Hr Calcium Troponin I High Sens COVID-19 (AILEEN) COVID-19 [employer] 02/03/21 06:04 MCV MCH MCHC RDW Plt Count MPV Immature Gran % (Auto) Neut % (Auto) Lymph % (Auto) [place] % (Auto) Eos % (Auto) Baso % (Auto) Lymph # (Auto) [place] # (Auto) Eos # (Auto) Baso # (Auto) Abs Immat Gran (auto) Absolute Neuts (auto) Absolute Nucleated RBC Nucleated RBC % (auto) Neutrophils % (Manual) Band Neutrophils % Lymphocytes % (Manual) Monocytes % (Manual) Metamyelocytes % Abs Neuts (Manual) Lymphocytes # (Manual) Monocytes # (Manual) Metamyelocytes # Toxic Vacuolation Dohle Bodies Platelet Estimate Large Platelets Plt Morphology Comment RBC Morphology PT INR APTT Anion Gap 16 Estim Creat Clear Calc 182.7 Estimated GFR > 60 Random Glucose 85 Lactic Acid Lactic Acid Fup @ 2Hr Lactic Acid Fup @ 4Hr Calcium 8.5 Troponin I High Sens COVID-19 (AILEEN) COVID-19 Clin Com Microbiology Microbiology Results: Microbiology 02/02/21 15:31 Blood Culture - Preliminary Blood - Venous Prelim: GPC Gram Stain only Assessment and Plan Assessment and Plan: 30M presented with LLE pain, found to be septic severe sepsis present on arrival due LLE cellulitis in setting of chronic lymphedema vanc cultures wound care morbid obesitry weight loss MAGO resolved sinus tachycardia due to sepsis and deconditioning, suspicion for VTE low, will dc therapeutic lovenox dvt prophylaxis - xarelto 10mg daily Quality Stroke Does the patient have a stroke diagnosis?: No VTE Prior VTE?: No VTE Risk Level:: Medical - moderate - high VTE Device Contraindication: Treatment Not Indicated VTE Drug Contraindication: N/A - Med Ordered
--- NOTE | 2021-02-03 15:35 | PC.NURSE ---
Patient on IMC for monitoring of septic cellulitis. IV Vanco as ordered. Morbidly obese, unable to obtain CT d/t weight. aware. trouble operator romelia Patient today, orders for dressings to open areas entered. Wounds dressed per orders. Patient tolerating PO well. Tylenol for mild headache this morning with good effect. Temp 101.9F this afternoon. Tylenol again given PO.
[2021-02-03] MEDS: 0.9 % Sodium Chloride Flush 3 ML SYRINGE IVFLUSH (16:51)
[2021-02-04 01:10] LABS: INTERNATIONAL NORM RATIO 1.4 (0.9-1.1); Prothrombin Time 15.7 SEC (9.9-13.0)
[2021-02-04 04:00] VITALS: BP 134/60; PULSE 116; RESP 20; TEMP 37.6; O2SAT 91
[2021-02-04 04:44] LABS: Hematocrit 32.6 % (42-52); Hemoglobin 10.5 g/dl (14.0-18.0); Mean Corpuscular HGB Conc 32.2 g/dl (31.0-36.0); Mean Corpuscular Hemoglobin 28.6 pg (27.0-33.0); Mean Corpuscular Volume 88.8 fL (80-98); Mean Platelet Volume 9.3 fL (9.4-12.4); Platelet Count 180 X10*3/uL (160-400); Red Blood Count 3.67 X10*6/uL (4.60-5.80); Red Cell Distribution Width 15.7 % (11.0-16.0)
[2021-02-04 05:12] LABS: Vancomycin Trough 6.6 mcg/mL (10.0-20.0)
[2021-02-04] MEDS: vancomycin HCL 1,250 MG in 0.9 % Sodium Chloride 250 ML 166.67 MG IV (05:50)
[2021-02-04 05:57] VITALS: BMI 84.4
[2021-02-04 07:22] VITALS: BP 131/66; PULSE 112; RESP 20; TEMP 38.2; O2SAT 94
[2021-02-04] MEDS: 0.9 % Sodium Chloride Flush 3 ML SYRINGE IVFLUSH ×3 (09:01→22:10)
[2021-02-04] MEDS: Rivaroxaban 10 MG TABLET PO (09:01)
[2021-02-04 11:16] VITALS: BP 122/60; PULSE 112; RESP 20; TEMP 37.5; O2SAT 94
[2021-02-04] MEDS: vancomycin HCL 1,000 MG in 0.9 % Sodium Chloride 250 ML 270 MG IV ×2 (12:19→20:59)
--- NOTE | 2021-02-04 12:46 | HO.PM.IMPN ---
Subjective Subjective Date of Service: 02/04/21 Interval History: fever overnight Constitutional Constitutional: Reports no additional constitutional complaints Eyes Eyes: Reports no additional eye complaints Physical Exam Vital Signs: Vital Signs: Last Vital Signs Temp 99.5 F 02/04/21 11:16 Pulse 112 H 02/04/21 11:16 Resp 20 02/04/21 11:16 BP 122/60 02/04/21 11:16 Pulse Ox 94 02/04/21 11:16 Body Mass Index 84.4 General: AO X 3, no acute distress, morbidly obese Resp:? CTA bilateral CVS: S1,S2,RRR GI: soft, non tender, non distended Neuro:? motor grossly intact Psych: appropriate affect skin: bilateral lymphedema, ?Stage 2 pressure ulcer measuring 0.8 x 0.8 x 0.1,cellulitis to posterior left lower leg with 2 open areas with a combined measurement of 3.6 x 1.2 x 0.1 Objective Data Current Medications Generic Name Dose Route Start Last Admin Trade Name Freq PRN Reason Stop Dose Admin Acetaminophen 650 mg 02/02/21 20:01 02/03/21 16:12 Acetaminophen 325 Mg Tablet PO 650 mg Q6H PRN Administration Pain, Mild (Pain Scale 1-3) Vancomycin HCl 1,000 mg/ 270 mls @ 270 mls/hr 02/04/21 13:00 02/04/21 12:19 Sodium Chloride IV 270 mls/hr Q8H [facility] Administration Pharmacy Consult 1 each 02/02/21 20:05 Consult Rx Vancomycin Dosing MISCELLANE DAILY PRN Consult order Rivaroxaban 10 mg 02/04/21 09:00 02/04/21 09:01 Rivaroxaban 10 Mg Tablet PO 10 mg DAILY [facility] Administration Sodium Chloride 3 ml 02/03/21 00:00 02/04/21 09:01 0.9 % Sodium Chloride Flush 3 Ml Syringe IVFLUSH 3 ml QSHIFT [facility] Administration Labs CBC & Chem 7: 02/04/21 04:37 02/03/21 06:04 Labs: Laboratory Results - last 24 hr 02/04/21 02/04/21 02/04/21 00:58 04:37 04:37 MCV 88.8 MCH 28.6 MCHC 32.2 RDW 15.7 Plt Count 180 MPV 9.3 L Absolute Nucleated RBC 0.000 Nucleated RBC % (auto) 0.0 PT 15.7 H D INR 1.4 H Vancomycin Trough 6.6 L Microbiology Microbiology Results: Microbiology 02/02/21 15:31 Blood Culture - Preliminary Blood - Venous Gram positive cocci 02/02/21 15:34 Blood Culture - Preliminary Blood - Venous No growth after 24 hours. Assessment and Plan (1) MAGO (acute kidney injury): Status: Acute Assessment and Plan: 30M presented with LLE pain, found to be septic severe sepsis present on arrival due LLE cellulitis in setting of chronic lymphedema still febrile vanc trough was low, dose adjusted cultures wound care morbid obesitry weight loss MAGO resolved dvt prophylaxis - xarelto 10mg daily Quality Stroke Does the patient have a stroke diagnosis?: No VTE Prior VTE?: No VTE Risk Level:: Medical - moderate - high VTE Device Contraindication: Treatment Not Indicated VTE Drug Contraindication: N/A - Med Ordered
[2021-02-04 15:21] VITALS: BP 160/80; PULSE 110; RESP 18; TEMP 38.3; O2SAT 95
[2021-02-04 18:30] VITALS: TEMP 37.8
[2021-02-04] MEDS: Acetaminophen 325 MG TABLET 650 MG PO (18:34)
--- NOTE | 2021-02-04 19:07 | PC.NURSE ---
Pt up to recliner for majority of the day. drsg to left foot changed. pt having decreased PO intake; pt reports nausea with eating solid foods; this RN encouraged pt to eat solid foods in moderation. temp 100.1 towards end of shift, tylenol given. will pass to oncoming RN.
[2021-02-04 19:52] VITALS: BP 133/68; PULSE 102; RESP 18; TEMP 38.2; O2SAT 94
[2021-02-05] VITALS (8 sets, daily range): BP systolic 119–143; BP diastolic 56–84; PULSE 86–127; RESP 18–22; TEMP 36.9–38.4; O2SAT 92–97; BMI 84.0
[2021-02-05 04:16] LABS: Hematocrit 34.6 % (42-52); Hemoglobin 10.8 g/dl (14.0-18.0); Mean Corpuscular HGB Conc 31.2 g/dl (31.0-36.0); Mean Corpuscular Volume 89.6 fL (80-98); Mean Platelet Volume 9.8 fL (9.4-12.4); Platelet Count 232 X10*3/uL (160-400); Red Blood Count 3.86 X10*6/uL (4.60-5.80); Red Cell Distribution Width 15.9 % (11.0-16.0); White Blood Count 12.7 X10*3/uL (4.8-10.8)
[2021-02-05 04:32] LABS: Anion Gap 14 (12-20); Blood Urea Nitrogen 12 mg/dL (9-16); Carbon Dioxide 26 mmol/L (22-29); Chloride 102 mmol/L (96-108); Creatinine Clr Calc Pharmacy 209.8; Estimated Glomerular Filt Rate > 60; Glucose Fasting 109 mg/dL (60-99); Potassium 3.7 mmol/L (3.3-5.1); Sodium 138 mmol/L (135-145)
[2021-02-05 04:38] LABS: Vancomycin Trough 9.5 mcg/mL (10.0-20.0)
[2021-02-05] MEDS: vancomycin HCL 1,000 MG in 0.9 % Sodium Chloride 250 ML 270 MG IV (05:10)
--- NOTE | 2021-02-05 05:14 | PC.NURSE ---
Vancomycin trough low at 9.5. Remote night pharmacy contacted, per pharmacy give 0500 vancomycin 1,000mg dose. In house pharmacy to adjust next dose of vancomycin as needed. Will notify day shift RN.
[2021-02-05] MEDS: Rivaroxaban 10 MG TABLET PO (07:53)
[2021-02-05] MEDS: 0.9 % Sodium Chloride Flush 3 ML SYRINGE IVFLUSH ×3 (07:54→21:07)
--- NOTE | 2021-02-05 10:47 | MHC.SL.SWA ---
Speech Pathologist Impression: Within Functional Limits Dysphasia Diet Status: No Change Liquid Consistency and Strategies for Safe Swallow: Liquid Intake Recommendation: Thin Liquid Intake Strategies: Unrestricted Solid Food Consistency: Dietary Recommendations: Regular Additional Modifications to Solid Foods: small bites/sips, alternating solids/liquids Oral Medication Intake: Whole with Puree (or Crushed, based on tolerance and preference) Compensatory Strategies and Precautions to be Taken for Safe Swallow: Small Bites and Sips Alternate Liquids/Solids Rate of Ingestion Change Supervision While Eating and Drinking for Safe Swallow: None Needed Recommendation for Speech: Comment: Patient able to self-feed. No overt s/s of aspiration and good oral clearance of regular solids. Patient reported infrequent difficulty with pills or dry consistencies, such as bread. The following strategies were recommended: small bites/sips, alternating solids/liquids, crushing or taking pills whole in puree. No further ST warranted at this time. Powertrain Calibration Engineer Clinican/Clinical Fellow: No Supervisory Statement: I have reviewed and agree with the student/clinical fellow's documentation: N/A Speech Language Pathologist: Tresa Carolina M.A., CCC-EAR PULL MACHINE OPERATOR
--- NOTE | 2021-02-05 11:54 | MHC.CLN ---
F/U PT C/O IF NAUSEA WITH SOLID FOOD YESTERDAY DIET RX: REGULAR DIET-APPROPRIATE PT RECEIVING GLUCERNA AND LI TO PROMOTE WOUND HEALING DIET AND SUPPLEMENT WILL PROMOTE SLOW WT LOSS WITH WOUND HEALING AND APPROPRIATE AT THIS TIME MONITOR PO INTAKE CLOSELY
[2021-02-05] MEDS: Clindamycin Phosphate/D5W 900 MG/50 ML PIGGYBACK 50 MG IV ×2 (12:25→21:06)
--- NOTE | 2021-02-05 12:40 | HO.PM.IMPN ---
Subjective Subjective Date of Service: 02/05/21 Interval History: still febrile Constitutional Constitutional: Reports no additional constitutional complaints Eyes Eyes: Reports no additional eye complaints Physical Exam Vital Signs: Vital Signs: Last Vital Signs Temp 99.5 F 02/05/21 11:45 Pulse 112 H 02/05/21 11:45 Resp 20 02/05/21 11:45 BP 119/56 L 02/05/21 11:45 Pulse Ox 97 02/05/21 11:45 Body Mass Index 84.0 General: AO X 3, no acute distress, morbidly obese Resp:? CTA bilateral CVS: S1,S2,RRR GI: soft, non tender, non distended Neuro:? motor grossly intact Psych: appropriate affect skin: bilateral lymphedema, ?Stage 2 pressure ulcer measuring 0.8 x 0.8 x 0.1,cellulitis to posterior left lower leg with 2 open areas with a combined measurement of 3.6 x 1.2 x 0.1 Objective Data Current Medications Generic Name Dose Route Start Last Admin Trade Name Freq PRN Reason Stop Dose Admin Acetaminophen 650 mg 02/02/21 20:01 02/04/21 18:34 Acetaminophen 325 Mg Tablet PO 650 mg Q6H PRN Administration Pain, Mild (Pain Scale 1-3) Clindamycin Phosphate 900 mg in 50 mls @ 50 mls/hr 02/05/21 11:45 02/05/21 12:25 Cleocin IV 50 mls/hr Q8H [facility] Administration Pharmacy Consult 1 each 02/02/21 20:05 Consult Rx Vancomycin Dosing MISCELLANE DAILY PRN Consult order Rivaroxaban 10 mg 02/04/21 09:00 02/05/21 07:53 Rivaroxaban 10 Mg Tablet PO 10 mg DAILY [facility] Administration Sodium Chloride 3 ml 02/03/21 00:00 02/05/21 07:54 0.9 % Sodium Chloride Flush 3 Ml Syringe IVFLUSH 3 ml QSHIFT [facility] Administration Labs CBC & Chem 7: 02/05/21 03:55 02/05/21 03:55 Labs: Laboratory Results - last 24 hr 02/05/21 02/05/21 02/05/21 03:55 03:55 03:55 MCV 89.6 MCH 28.0 MCHC 31.2 RDW 15.9 Plt Count 232 D MPV 9.8 Absolute Nucleated RBC 0.000 Nucleated RBC % (auto) 0.0 Anion Gap 14 Estim Creat Clear Calc 209.8 Estimated GFR > 60 Fasting Glucose 109 H Calcium 9.0 Vancomycin Trough 9.5 L Microbiology Microbiology Results: Microbiology 02/02/21 15:31 Blood Culture - Final Blood - Venous Coag negative Staphylococcus 02/02/21 15:34 Blood Culture - Preliminary Blood - Venous No growth after 48 hours. Assessment and Plan (1) MAGO (acute kidney injury): Status: Acute Assessment and Plan: 30M presented with LLE pain, found to be septic severe sepsis present on arrival due LLE cellulitis in setting of chronic lymphedema still febrile ID appreciated, changed vanc to clinda cultures wound care morbid obesitry weight loss MAGO resolved dvt prophylaxis - xarelto 10mg daily Quality Stroke Does the patient have a stroke diagnosis?: No VTE Prior VTE?: No VTE Risk Level:: Medical - moderate - high VTE Device Contraindication: Treatment Not Indicated VTE Drug Contraindication: N/A - Med Ordered
[2021-02-05] MEDS: Acetaminophen 325 MG TABLET 650 MG PO (21:07)
[2021-02-06] VITALS (7 sets, daily range): BP systolic 132–156; BP diastolic 60–79; PULSE 102–133; RESP 18–22; TEMP 36.9–38.1; O2SAT 92–100; BMI 84.6
[2021-02-06] MEDS: Clindamycin Phosphate/D5W 900 MG/50 ML PIGGYBACK 50 MG IV ×3 (03:18→19:45)
[2021-02-06] MEDS: Rivaroxaban 10 MG TABLET PO (09:39)
[2021-02-06] MEDS: 0.9 % Sodium Chloride Flush 3 ML SYRINGE IVFLUSH ×2 (09:39→17:44)
--- NOTE | 2021-02-06 10:40 | HO.PM.IMPN ---
Subjective Subjective Date of Service: 02/06/21 Interval History: fevers Cardiovascular Cardiovascular: Reports no additional cardiovascular complaints Respiratory Respiratory: Reports no additional respiratory complaints Physical Exam Vital Signs: Vital Signs: Last Vital Signs Temp 99.2 F 02/06/21 07:47 Pulse 133 H 02/06/21 07:47 Resp 20 02/06/21 07:47 BP 156/74 H 02/06/21 07:47 Pulse Ox 93 02/06/21 07:47 Body Mass Index 84.6 General: AO X 3, no acute distress, morbidly obese Resp:? CTA bilateral CVS: S1,S2,RRR GI: soft, non tender, non distended Neuro:? motor grossly intact Psych: appropriate affect Objective Data Current Medications Generic Name Dose Route Start Last Admin Trade Name Kareemq PRN Reason Stop Dose Admin Acetaminophen 650 mg 02/02/21 20:01 02/05/21 21:07 Acetaminophen 325 Mg Tablet PO 650 mg Q6H PRN Administration Pain, Mild (Pain Scale 1-3) Clindamycin Phosphate 900 mg in 50 mls @ 50 mls/hr 02/05/21 11:45 02/06/21 04:19 Cleocin IV Infused Q8H [facility] Infusion Pharmacy Consult 1 each 02/02/21 20:05 Consult Rx Vancomycin Dosing MISCELLANE DAILY PRN Consult order Rivaroxaban 10 mg 02/04/21 09:00 02/06/21 09:39 Rivaroxaban 10 Mg Tablet PO 10 mg DAILY [facility] Administration Sodium Chloride 3 ml 02/03/21 00:00 02/06/21 09:39 0.9 % Sodium Chloride Flush 3 Ml Syringe IVFLUSH 3 ml QSHIFT [facility] Administration Labs CBC & Chem 7: 02/05/21 03:55 02/05/21 03:55 Microbiology Microbiology Results: Microbiology 02/02/21 15:31 Blood Culture - Final Blood - Venous Coag negative Staphylococcus Assessment and Plan (1) MAGO (acute kidney injury): Status: Acute Assessment and Plan: 30M presented with LLE pain, found to be septic severe sepsis present on arrival due LLE cellulitis in setting of chronic lymphedema still febrile ID appreciated, changed vanc to clinda on 02/05 coag neg staph in blood is likely contaminant continue local wound care morbid obesitry weight loss MAGO resolved dvt prophylaxis - xarelto 10mg daily Quality Stroke Does the patient have a stroke diagnosis?: No VTE Prior VTE?: No VTE Risk Level:: Medical - moderate - high VTE Device Contraindication: Treatment Not Indicated VTE Drug Contraindication: N/A - Med Ordered
[2021-02-06] MEDS: Acetaminophen 325 MG TABLET 650 MG PO ×2 (11:48→19:50)
[2021-02-07] VITALS (9 sets, daily range): BP systolic 129–168; BP diastolic 60–78; PULSE 64–120; RESP 18–20; TEMP 36.8–38.3; O2SAT 90–96; BMI 84.4
[2021-02-07] MEDS: 0.9 % Sodium Chloride Flush 3 ML SYRINGE IVFLUSH ×3 (01:00→17:43)
[2021-02-07] MEDS: Clindamycin Phosphate/D5W 900 MG/50 ML PIGGYBACK 50 MG IV ×2 (04:00→12:50)
[2021-02-07 06:33] LABS: Hematocrit 30.5 % (42-52); Hemoglobin 9.6 g/dl (14.0-18.0); Mean Corpuscular HGB Conc 31.5 g/dl (31.0-36.0); Mean Corpuscular Hemoglobin 28.2 pg (27.0-33.0); Mean Corpuscular Volume 89.7 fL (80-98); Mean Platelet Volume 9.9 fL (9.4-12.4); NRBC Pct Auto 0.2 /100WBC (0.0-0.2); Platelet Count 293 X10*3/uL (160-400); Red Cell Distribution Width 15.8 % (11.0-16.0); White Blood Count 15.1 X10*3/uL (4.8-10.8)
[2021-02-07 06:55] LABS: Anion Gap 12 (12-20); Blood Urea Nitrogen 9 mg/dL (9-16); Calcium 8.5 mg/dL (8.4-10.2); Carbon Dioxide 28 mmol/L (22-29); Chloride 102 mmol/L (96-108); Creatinine Clr Calc Pharmacy 241.6; Estimated Glomerular Filt Rate > 60; Glucose Fasting 106 mg/dL (60-99); Potassium 3.5 mmol/L (3.3-5.1); Sodium 138 mmol/L (135-145)
[2021-02-07 07:14] LABS: TSH reflex Free T4 2.16 uIU/mL (0.32-4.0)
[2021-02-07] MEDS: Rivaroxaban 10 MG TABLET PO (08:56)
--- NOTE | 2021-02-07 10:52 | HO.PM.IMPN ---
Subjective Subjective Date of Service: 02/07/21 Interval History: still febrile Cardiovascular Cardiovascular: Reports no additional cardiovascular complaints Gastrointestinal Gastrointestinal: Reports no additional gastrointestinal complaints Physical Exam Vital Signs: Vital Signs: Last Vital Signs Temp 99.2 F 02/07/21 07:34 Pulse 114 H 02/07/21 07:34 Resp 20 02/07/21 07:34 BP 134/62 02/07/21 07:34 Pulse Ox 95 02/07/21 07:34 Body Mass Index 84.4 General: AO X 3, no acute distress, morbidly obese Resp:? CTA bilateral CVS: S1,S2,RRR GI: soft, non tender, non distended Neuro:? motor grossly intact Psych: appropriate affect Objective Data Current Medications Generic Name Dose Route Start Last Admin Trade Name Kareemq PRN Reason Stop Dose Admin Acetaminophen 650 mg 02/02/21 20:01 02/06/21 19:50 Acetaminophen 325 Mg Tablet PO 650 mg Q6H PRN Administration Pain, Mild (Pain Scale 1-3) Clindamycin Phosphate 900 mg in 50 mls @ 50 mls/hr 02/05/21 11:45 02/07/21 05:15 Cleocin IV Infused Q8H [facility] Infusion Pharmacy Consult 1 each 02/02/21 20:05 Consult Rx Vancomycin Dosing MISCELLANE DAILY PRN Consult order Rivaroxaban 10 mg 02/04/21 09:00 02/07/21 08:56 Rivaroxaban 10 Mg Tablet PO 10 mg DAILY ANNA Administration Sodium Chloride 3 ml 02/03/21 00:00 02/07/21 08:56 0.9 % Sodium Chloride Flush 3 Ml Syringe IVFLUSH 3 ml QSHIFT [facility] Administration Labs CBC & Chem 7: 02/07/21 05:19 02/07/21 05:19 Labs: Laboratory Results - last 24 hr 02/07/21 02/07/21 02/07/21 05:19 05:19 05:19 MCV 89.7 MCH 28.2 MCHC 31.5 RDW 15.8 Plt Count 293 D MPV 9.9 Absolute Nucleated RBC 0.030 H Nucleated RBC % (auto) 0.2 Anion Gap 12 Estim Creat Clear Calc 241.6 Estimated GFR > 60 Fasting Glucose 106 H Calcium 8.5 TSH 2.16 Assessment and Plan (1) MAGO (acute kidney injury): Status: Acute Assessment and Plan: 30M presented with LLE pain, found to be septic severe sepsis present on arrival due LLE cellulitis in setting of chronic lymphedema still febrile changed vanc to clinda on 02/05 coag neg staph in blood is likely contaminant continue local wound care follow up ID morbid obesitry weight loss MAGO resolved dvt prophylaxis - xarelto 10mg daily Quality Stroke Does the patient have a stroke diagnosis?: No VTE Prior VTE?: No VTE Risk Level:: Medical - moderate - high VTE Device Contraindication: Treatment Not Indicated VTE Drug Contraindication: N/A - Med Ordered
[2021-02-07 14:18] LABS: COVID-19 Test Negative (Negative)
[2021-02-07] MEDS: Acetaminophen 325 MG TABLET 650 MG PO (19:52)
[2021-02-07] MEDS: Clindamycin Phosphate/D5W 900 MG/50 ML PIGGYBACK 100 MG IV (19:53)
[2021-02-08] VITALS (7 sets, daily range): BP systolic 113–136; BP diastolic 52–81; PULSE 91–110; RESP 20–24; TEMP 36.5–37.4; O2SAT 92–98
[2021-02-08] MEDS: Clindamycin Phosphate/D5W 900 MG/50 ML PIGGYBACK 100 MG IV ×3 (03:33→20:04)
[2021-02-08 07:16] LABS: INTERNATIONAL NORM RATIO 1.3 (0.9-1.1); Prothrombin Time 14.5 SEC (9.9-13.0)
[2021-02-08 07:18] LABS: Hematocrit 32.1 % (42-52); Hemoglobin 9.9 g/dl (14.0-18.0); Mean Corpuscular HGB Conc 30.8 g/dl (31.0-36.0); Mean Corpuscular Hemoglobin 27.8 pg (27.0-33.0); Mean Corpuscular Volume 90.2 fL (80-98); Mean Platelet Volume 10.1 fL (9.4-12.4); NRBC Pct Auto 0.5 /100WBC (0.0-0.2); Platelet Count 362 X10*3/uL (160-400); Red Blood Count 3.56 X10*6/uL (4.60-5.80); Red Cell Distribution Width 15.9 % (11.0-16.0); White Blood Count 16.9 X10*3/uL (4.8-10.8)
[2021-02-08 07:24] LABS: Alanine Aminotransferase 42 U/L (0-40); Albumin Level 2.9 g/dL (3.5-5.0); Alkaline Phosphatase 63 U/L (39-117); Anion Gap 15 (12-20); Aspartate Amino Transferase 32 U/L (5-37); Bilirubin Direct 0.3 mg/dL (0.0-0.5); Bilirubin Total 0.5 mg/dL (0.0-1.0); Blood Urea Nitrogen 10 mg/dL (9-16); Calcium 8.5 mg/dL (8.4-10.2); Carbon Dioxide 26 mmol/L (22-29); Chloride 102 mmol/L (96-108); Estimated Glomerular Filt Rate > 60; Glucose Fasting 102 mg/dL (60-99); Magnesium 2.5 mg/dL (1.6-2.6); Potassium 3.7 mmol/L (3.3-5.1); Sodium 139 mmol/L (135-145); Total Protein 6.4 g/dL (6.5-8.0)
--- NOTE | 2021-02-08 11:15 | MHC.CM.PN ---
Per ROUNDS discussion, Patient is not yet medically cleared for dc (fevers). Home with new [facility] is the goal for dc and CM will follow for possible need to adjust the dc plan.
[2021-02-08] MEDS: Rivaroxaban 10 MG TABLET PO (11:19)
[2021-02-08] MEDS: 0.9 % Sodium Chloride Flush 3 ML SYRINGE IVFLUSH ×4 (11:19→20:04)
--- NOTE | 2021-02-08 12:24 | HO.PM.IMPN ---
Subjective Subjective Date of Service: 02/08/21 Interval History: low grade fever overnight Cardiovascular Cardiovascular: Reports no additional cardiovascular complaints Respiratory Respiratory: Reports no additional respiratory complaints Physical Exam Vital Signs: Vital Signs: Last Vital Signs Temp 97.7 F 02/08/21 11:20 Pulse 105 H 02/08/21 11:20 Resp 22 H 02/08/21 11:20 BP 136/76 02/08/21 11:20 Pulse Ox 98 02/08/21 11:20 Body Mass Index 84.4 General: AO X 3, no acute distress, morbidly obese Resp:? CTA bilateral CVS: S1,S2,RRR GI: soft, non tender, non distended Neuro:? motor grossly intact Psych: appropriate affect Objective Data Current Medications Generic Name Dose Route Start Last Admin Trade Name Freq PRN Reason Stop Dose Admin Acetaminophen 650 mg 02/02/21 20:01 02/07/21 19:52 Acetaminophen 325 Mg Tablet PO 650 mg Q6H PRN Administration Pain, Mild (Pain Scale 1-3) Clindamycin Phosphate 900 mg in 50 mls @ 50 mls/hr 02/05/21 11:45 02/08/21 11:58 Cleocin IV Infused Q8H ANNA Infusion Ondansetron HCl 4 mg 02/07/21 13:13 Ondansetron Hcl 4 Mg/2 Ml Vial IVPUSH Q6H PRN nausea Pharmacy Consult 1 each 02/02/21 20:05 Consult Rx Vancomycin Dosing MISCELLANE DAILY PRN Consult order Rivaroxaban 10 mg 02/04/21 09:00 02/08/21 11:19 Rivaroxaban 10 Mg Tablet PO 10 mg DAILY ANNA Administration Sodium Chloride 3 ml 02/03/21 00:00 02/08/21 11:19 0.9 % Sodium Chloride Flush 3 Ml Syringe IVFLUSH 3 ml QSHIFT ANNA Administration Labs CBC & Chem 7: 02/08/21 06:03 02/08/21 06:03 Labs: Laboratory Results - last 24 hr 02/07/21 02/08/21 02/08/21 13:52 06:03 06:03 MCV 90.2 MCH 27.8 MCHC 30.8 L RDW 15.9 Plt Count 362 MPV 10.1 Absolute Nucleated RBC 0.080 H Nucleated RBC % (auto) 0.5 H PT INR Anion Gap 15 Estim Creat Clear Calc 230.0 Estimated GFR > 60 Fasting Glucose 102 H Calcium 8.5 Magnesium 2.5 Total Bilirubin 0.5 Direct Bilirubin 0.3 AST 32 D ALT 42 H Alkaline Phosphatase 63 D Total Protein 6.4 L Albumin 2.9 L D COVID-19 (AILEEN) Negative COVID-19 Clin Com See Note 02/08/21 06:03 MCV MCH MCHC RDW Plt Count MPV Absolute Nucleated RBC Nucleated RBC % (auto) PT 14.5 H INR 1.3 H Anion Gap Estim Creat Clear Calc Estimated GFR Fasting Glucose Calcium Magnesium Total Bilirubin Direct Bilirubin AST ALT Alkaline Phosphatase Total Protein Albumin COVID-19 (AILEEN) COVID-19 Clin Com Microbiology Microbiology Results: Microbiology 02/02/21 15:34 Blood Culture - Final Blood - Venous No growth after 5 days. Assessment and Plan (1) MAGO (acute kidney injury): Status: Acute Assessment and Plan: 30M presented with LLE pain, found to be septic severe sepsis present on arrival due LLE cellulitis in setting of chronic lymphedema had low grade fever only last 24hrs changed vanc to clinda on 02/05 coag neg staph in blood is likely contaminant continue local wound care follow up ID morbid obesitry weight loss MAGO resolved dvt prophylaxis - xarelto 10mg daily Quality Stroke Does the patient have a stroke diagnosis?: No VTE Prior VTE?: No VTE Risk Level:: Medical - moderate - high VTE Device Contraindication: Treatment Not Indicated VTE Drug Contraindication: N/A - Med Ordered
--- NOTE | 2021-02-08 13:04 | W.PM.IDCN ---
History of Present Illness Data of Consult Service Date: 02/08/21 Requesting physician: Jeremías Small Primary Care Provider: Unknown Physician HPI Reason for consult: fever of unknown origin He presents to hospital with fever and redness to left leg He has had weeping and erythema and scaliness to leg No one else is ill and COVID is negative There is no bacteremia Review of Systems Review of Systems: Yes all other systems are reviewed and are negative PMFSH Past Medical History Medical History HTN (hypertension) No known health problems Family History Family history: reviewed and not pertinent Social History Social History Household Members: Family Housing: House Do you presently have visiting nurse or other home services: No Alcohol intake: never Patient Tobacco Use Status: Never used Tobacco Use of substances other than those prescribed or required for medical reasons: No Currently Displaying Signs/Symptoms of Drug Intoxication Withdrawal: No Any prior treatment program specific to substance use: No Have you been hit, kicked, punched, or otherwise hurt by someone within the past year? If so, by whom?: No Do you feel safe in your current relationship?: No Current Relationship Is there a partner from a previous relationship who is making you feel unsafe now?: No Are you made to feel afraid or neglected: No Advance Directives: No Advance Directives Information Provided: Yes Advance Directives on File: No Do you have thoughts of harming others: None Do you have a plan to hurt others: No Plan Recently lost weight without trying: No Eating poorly because of decreased appetite: Yes Nutrition Risks: No Nutritional Risk Poor oral hygiene: No service: No Current occupational status: disabled Meds Allergies Allergy/AdvReac Type Severity Reaction Status Date / Time No Known Allergies Allergy Verified 02/02/21 14:14 Active Medications: Current Medications Generic Name Dose Route Start Last Admin Trade Name Freq PRN Reason Stop Dose Admin Acetaminophen 650 mg 02/02/21 20:01 02/07/21 19:52 Acetaminophen 325 Mg Tablet PO 650 mg Q6H PRN Administration Pain, Mild (Pain Scale 1-3) Clindamycin Phosphate 900 mg in 50 mls @ 50 mls/hr 02/05/21 11:45 02/08/21 11:58 Cleocin IV Infused Q8H ANNA Infusion Ondansetron HCl 4 mg 02/07/21 13:13 Ondansetron Hcl 4 Mg/2 Ml Vial IVPUSH Q6H PRN nausea Pharmacy Consult 1 each 02/02/21 20:05 Consult Rx Vancomycin Dosing MISCELLANE DAILY PRN Consult order Rivaroxaban 10 mg 02/04/21 09:00 02/08/21 11:19 Rivaroxaban 10 Mg Tablet PO 10 mg DAILY ANNA Administration Sodium Chloride 3 ml 02/03/21 00:00 02/08/21 11:19 0.9 % Sodium Chloride Flush 3 Ml Syringe IVFLUSH 3 ml QSHIFT ANNA Administration Physical Exam Vital Signs: Vital Signs: Last Vital Signs Temp 97.7 F 02/08/21 11:20 Pulse 105 H 02/08/21 11:20 Resp 22 H 02/08/21 11:20 BP 136/76 02/08/21 11:20 Pulse Ox 98 02/08/21 11:20 Body Mass Index 84.4 Const: General: cooperative HENMT: Head: Yes normal to inspection Mouth: Normal oral and palatal mucosa present Resp: Effort & Inspection: normal respiratory effort Cardio: Rate: regular rate Rhythm: regular rhythm GI: Palpation (GI): Soft to palpation and nontender Extrem: Other: left leg some erythema and swelling,leaking Results Labs CBC & Chem 7: 02/08/21 06:03 02/08/21 06:03 Labs: Short CBC 02/08/21 Range/Units 06:03 WBC 16.9 H (4.8-10.8) X10*3/uL Hgb 9.9 L (14.0-18.0) g/dl Hct 32.1 L (42-52) % Plt Count 362 (160-400) X10*3/uL BMP 02/08/21 06:03 Sodium 139 Potassium 3.7 Chloride 102 Carbon Dioxide 26 BUN 10 Creatinine 1.04 Calcium 8.5 Liver Function 02/08/21 Range/Units 06:03 Total Bilirubin 0.5 (0.0-1.0) mg/dL Direct Bilirubin 0.3 (0.0-0.5) mg/dL AST 32 D (5-37) U/L ALT 42 H (0-40) U/L Alkaline Phosphatase 63 D (39-117) U/L Albumin 2.9 L D (3.5-5.0) g/dL Microbiology Microbiology Results: Microbiology 02/02/21 15:34 Blood - Venous Blood Culture - Final No growth after 5 days. 02/02/21 15:31 Blood - Venous Blood Culture - Final Coag negative Staphylococcus Assessment and Plan (1) Sepsis: Status: Acute He has been improving ,but still has temperature to 101 daily He has no other complaints and cultures blood normal COVID test is negative Would continue Clindamycin If continues to have decreased redness and no fever in 24 hours would switch to po Clindamycin 450 tid for a week Watch for diarrhea
--- NOTE | 2021-02-08 13:28 | MHC.CLN ---
F/U DOCUMENTATION SHOWS INTAKE AT MEALS VERY GOOD. DIET RX: REGULAR DIET-APPROPRIATE PT RECEIVING GLUCERNA AND LI TO PROMOTE WOUND HEALING DIET AND SUPPLEMENT WILL PROMOTE SLOW WT LOSS WITH WOUND HEALING AND APPROPRIATE AT THIS TIME MONITOR PO INTAKE CLOSELY
[2021-02-08] MEDS: Acetaminophen 325 MG TABLET 650 MG PO (16:21)
[2021-02-09 03:49] VITALS: BP 124/84; PULSE 103; RESP 20; TEMP 36.9; O2SAT 94
[2021-02-09] MEDS: Clindamycin Phosphate/D5W 900 MG/50 ML PIGGYBACK 100 MG IV (04:00)
[2021-02-09 06:00] VITALS: BMI 84.3
[2021-02-09 08:00] VITALS: BP 125/79; PULSE 117; RESP 19; TEMP 36.9; O2SAT 94
--- NOTE | 2021-02-09 09:34 | PM.DS ---
DS: Providers Provider Date of Service: 02/09/21 Date of admission: 02/02/21 20:02 Primary care physician: Unknown Physician Consults: 02/05/21 07:56 Consult to Infectious Diseases Routine Consulting Provider: Sil Chinchilla Reason for consultation: sepsis cellulitis, morbid obesity DS: Diagnosis Discharge Diagnosis (1) Sepsis: Status: Acute DS: Medications Discharge Medications Home Medications: Previous Rx's Medication Instructions Recorded furosemide 80 mg tablet (Lasix) 80 mg PO DAILY #30 tab 12/17/20 clindamycin HCl 150 mg capsule 450 mg PO TID 7 Days #63 cap 02/09/21 DS: Summary Hospital Course Hospital Course: patient was admitted for severe sepsis due to LLE cellulitis with chronic lymphedema due to morbid obesity. was initially treated with vancomycin, but had difficulty with dosing, changed to clindamycin and eventually became afebrile. blood cultures only grea contaminant, patient was seen by ID who recommended 7 days po clinda. course was also complicated by MAGO which resolved with hydration. Time Spent with Patient Time attestation: Total time spent providing and/or coordinating discharge services: Discharge coordination time: Greater than 30 minutes Quality: Stroke Does the patient have a stroke diagnosis?: No Physical Exam Vital Signs: Vital Signs: Last Vital Signs Temp 98.4 F 02/09/21 08:00 Pulse 117 H 02/09/21 08:00 Resp 19 02/09/21 08:00 BP 125/79 02/09/21 08:00 Pulse Ox 94 02/09/21 08:00 Body Mass Index 84.3 Const General:?cooperative HENMT Head:?Yes normal to inspection Mouth:?Normal oral and palatal mucosa present Resp Effort & Inspection:?normal respiratory effort Cardio Rate:?regular rate Rhythm:?regular rhythm GI Palpation (GI):?Soft to palpation and nontender Extrem Other:?left leg some erythema and swelling,leaking DS: Data Data Completed and Pending Labs on day of discharge: Preliminary micro results at discharge 02/08/21 06:03 Blood Culture - Preliminary Blood - Venous No growth after 24 hours. 02/08/21 06:03 Blood Culture - Preliminary Blood - Venous No growth after 24 hours. Discharge Plan Discharge Patient Disposition: Home, Self-Care Discharge Diagnosis: sepsis Referrals: Physician,Unknown [Primary Care Provider] - 1 Week Discharge Medications: New clindamycin HCl 150 mg capsule 450 mg PO TID 7 Days Qty: 63 RF: 0 Continued furosemide [Lasix] 80 mg tablet 80 mg PO DAILY Qty: 30 RF: 0 Discharge Orders: Discharge Order (Routine); Ordered 02/09/21 Ordered By: Jeremías Small Diet: advance to usual diet Activity on Discharge: As tolerated Stand Alone Forms: Patient Portal Discharge page Care Plan Goals: recovery Health Concerns: cellulitis Plan of Treatment: 7 days clinda, follow up wound care, watch for diarrhea Assessment: see above
[2021-02-09] MEDS: Rivaroxaban 10 MG TABLET PO (09:43)
[2021-02-09] MEDS: 0.9 % Sodium Chloride Flush 3 ML SYRINGE IVFLUSH (09:43)
--- NOTE | 2021-02-09 09:43 | MHC.CM.PN ---
Patient has been medically cleared for dc to home today, no services.
== END 2021-02-09 12:25 | disposition home or self-care (01) | DRG 720 ==
LOC: HO.ED 18:46 → HO.EDOVER 20:25 → HO.IMC 21:15
PROVIDERS: Internal Medicine; Admitting Provider Internal Medicine; Emergency Provider Emergency Medicine Emergency Medical Services; PCP Family Medicine; Visit Provider Internal Medicine
DX: A41.9 Sepsis, unspecified organism (principal); E87.2 Acidosis; N17.9 Acute kidney failure, unspecified; E66.01 Morbid (severe) obesity due to excess calories; R00.0 Tachycardia, unspecified; L03.116 Cellulitis of left lower limb; Z68.45 Body mass index [BMI] 70 or greater, adult; R65.20 Severe sepsis without septic shock; Z20.822 Contact with and (suspected) exposure to COVID-19; Z79.899 Other long term (current) drug therapy
CPT/HCPCS: 36415; 71045; 80048; 80076; 80202; 83605; 83735; 84443; 84484; 85007; 85025; 85027; 85610; 85730; 87040; 87147; 87205; 87635; 92610; 93005; 93971; 99223; 99284; J1650; J1885; J2543; J3370

== ENCOUNTER 2021-02-15 08:10 | Outpatient (RCR) | payer MEDICAID, SELFPAY | END 2021-03-03 15:47 | disposition home or self-care (01) | LOC: HO.WCC 08:10 | PROVIDERS: Visit Provider Physician Assistant | DX: L97.222 Non-pressure chronic ulcer of left calf with fat layer exposed (principal); Q82.0 Hereditary lymphedema; E66.9 Obesity, unspecified | CPT/HCPCS: 11042; 99212 ==

== ENCOUNTER 2021-06-02 11:00 | Outpatient (RCR) | payer MEDICAID, SELFPAY | END 2021-10-19 10:00 | disposition home or self-care (01) | LOC: HO.OT 11:00 | PROVIDERS: PCP Family Medicine; Visit Provider Physician Assistant | DX: I89.0 Lymphedema, not elsewhere classified (principal) | CPT/HCPCS: 97110; 97140 ==

== ENCOUNTER → 2022-04-07 09:28 | Outpatient (BNVA) | payer MEDICAID, SELFPAY | PROVIDERS: PCP Family Medicine; Visit Provider Urology | DX: N50.89 Other specified disorders of the male genital organs (principal); I89.0 Lymphedema, not elsewhere classified | CPT/HCPCS: 99202 ==

== ENCOUNTER 2022-04-20 07:45 | Outpatient (REF) | payer MEDICAID, SELFPAY ==
--- NOTE | ~2022-04-20 | CT_ITS ---
EXAMINATION: CT PELVIS WITH CONTRAST CLINICAL INFORMATION: Lymphedema COMPARISON: None TECHNIQUE: Helical scanning was performed with submillimeter collimation through the pelvis with the use of oral contrast and during bolus intravenous injection of 85 mL of Omnipaque 350 intravenous contrast. Sagittal and coronal multiplanar 2-D reconstructions were obtained. This CT examination was performed using dose optimization techniques as appropriate, variously including the following: *Automated exposure control *Adjustment of mA and/or kV according to patient size (this includes techniques or standardized protocols for targeted exams where dose is matched to indication/reason for exam; i.e. extremities or head) *Use of iterative reconstruction technique DLP: 2004 mGy-cm FINDINGS: Bladder is empty and not well evaluated. Prostate gland does not appear enlarged. Visualized bowel is normal. No ascites. No inguinal hernia. Small umbilical hernia containing fat. Prominent bilateral inguinal lymph nodes. No retroperitoneal lymphadenopathy or mass. Bony structures are normal. CT/CT pelvis w IV con IMPRESSION: Prominent bilateral inguinal lymph nodes. No retroperitoneal adenopathy or mass. Small umbilical hernia containing fat.
[2022-04-20] MEDS: Barium Sulfate Oral (Mocha) 450 ML ORAL.SUSP 900 ML PO (10:29)
[2022-04-20] MEDS: iohexoL 350 MG/ML 100 ML INFUS..BTL 85 ML IV (10:29)
== END 2022-04-20 07:46 | disposition home or self-care (01) ==
LOC: HO.CT 07:45
PROVIDERS: Visit Provider Urology
DX: I89.0 Lymphedema, not elsewhere classified (principal)
CPT/HCPCS: 72193; Q9967

== ENCOUNTER 2022-09-09 11:00 | Outpatient (RCR) | payer MEDICAID, SELFPAY ==
--- NOTE | 2023-04-12 10:38 | MHC.OT.DC ---
[address] [phone] F: [phone] Occupational Therapy Discharge Note Patient Name: Dwayne Vizcarra Provider: Yane Cisneros Diagnosis: Bilateral lower extremity lymphedema Scrotal lymphedema Date of Surgery: Date of Evaluation: 07/20/22 Date of Discharge: 04/12/23 Treatments to Date: 11 Cancellations to Date: 3 No Shows to Date: Discharge Status: Recommend MD Follow-up Discharge Summary: Pt reports improving with self bandaging with velcro closure genital pad fabricated here in the clinic . Scrotal circumference reduced by 3 pt now able to fit into a pre wendy male genital pad with plan to modify waist strap to secure in place. Pt will benefit from including compression wrap at night vs his compression shorts Pt is highly motivated and following his HEP with bandaging , self massage as able, leg elevation and therapeutic exercises as able I anticipate improved benefit from treatment for scrotal lymphedema when pt is able to acquire bilateral thigh high compression wraps and reliable assistance with LE skin care and leg wrapping care to promote increased lymphatic flow and prevent worsening of this condition. T for lymphedema on hold. Requesting Pt to follow up with PCP re [employer] support, purchasing recommended thigh high Juxtafit wraps for bilateral LE and a male genital pad. I anticipate we may will need to do leg bandaging with [employer] support as insurance does not cover custom products or compression products for foot or above the knee. Pt is unable to self manage lower leg and foot lymphedema without reliable assistance. Pt weight loss and reliable [employer] support are essential for continued improvement Pt to follow up with PCP for RX to bring or fax to [facility] . Information provided for pt to follow up on MD rx for products Electronically Signed By: Daija Menchaca OT CHT CLT Reviewed/agree with student documentation: Therapist: Please Sign and return to therapist, thank you for your referral.
== END 2023-04-12 10:39 | disposition home or self-care (01) ==
LOC: HO.OT 11:00
PROVIDERS: PCP Registered Nurse; Visit Provider Registered Nurse
DX: I89.0 Lymphedema, not elsewhere classified (principal); M79.89 Other specified soft tissue disorders
CPT/HCPCS: 97110; 97140; 97167

== ENCOUNTER → 2022-10-21 13:06 | Outpatient (REF) | payer MEDICAID, SELFPAY ==
--- NOTE | 2022-10-21 13:09 | CA_ITS ---
Transthoracic Echocardiogram Patient (Last, First, Middle): Dwayne Vizcarra, Gender: Male Date of : 1990 Age: 31 Procedure Date: 10/21/2022 Procedure Type: Transthoracic Echocardiogram Location: OP Height: 172.72 cm Weight: 273.97 kg BSA: 3.27 m2 Heart Rate: bpm BP: 148 / 88 mmHg Strawhat Inspector And Packer: DANA Referring MD: Yane TARIQ Bulb Grader: Curt Doshi MD Symptoms: I10 HTN SEVERE OBESITY Study Quality: Technically Difficult/Contrast ECG Rhythm: Sinus Conclusions: - 1. Technically extremely limited study due to patient's body habitus 2. Hyperdynamic LV ejection fraction greater than 70% with normal diastolic filling pattern 3. Limited visualization cardiac valves with normal cardiac valvular Doppler Findings Procedure Information Contrast agent, definity, is being given per protocol without apparent complications. Left Ventricle Normal left ventricular cavity size. There is mildly increased left ventricular wall thickness. The left ventricular systolic function is hyperdynamic. The visually estimated ejection fraction is >70%. Spectral Doppler is indicative of a normal filling pattern. Right Ventricle The right ventricle was not well visualized. There is normal right ventricular systolic function. Atria The left atrium was not well visualized. Interatrial shunt cannot be excluded. The right atrium was not well visualized. Aortic Valve The aortic valve was not well visualized. There is no aortic valve stenosis. There is no aortic valve regurgitation. Mitral Valve The mitral valve was not well visualized. There is no mitral valve regurgitation. Pulmonic Valve The pulmonic valve was not well visualized. Tricuspid Valve The tricuspid valve was not well visualized. Tricuspid regurgitation envelope is inadequate for calculation of right ventricular systolic pressure. Great Vessels The aorta was not well visualized. The pulmonary artery was not well visualized. Venous The inferior vena cava was not well visualized. Pericardium/Pleural The pericardium was not well visualized. Prior Study Comparison No prior study available for comparison. Measurements 2D Linear Measurements IVSd: 1.23 0.6-0.9/0.6-1.0 cm LVIDd: 5.69 3.9-5.3/4.2-5.9 cm LVIDd Index: 1.74 2.4-3.2/2.2-3.1 cm/m2 LVIDs: 4.30 2.0-3.6 cm LVPWd: 1.28 0.7-1.1 cm LA Diam: 4.70 2.7-3.8/3.0-4.0 cm LAIDs Index: 1.44 1.5-2.3 cm/m2 LV Mass: 381.83 67-162/88-224 g LV Mass Index: 116.77 43-95/49-115 g/m2 2D Systolic Function EF 4C: 75.90 >55% EF 2C: 66.20 >55% EF BiP: 71.90 >55% Mitral Valve MV Pk E: 0.81 MV PK A: 0.72 MV Decel Time: 165.00 E/A: 1.10 E'Lateral: 10.30 E'Medial: 13.30 E/E' Med: 6.10 E/E' Lat: 7.90 PHT: 48.00 MVA PHT: 4.58 Decel [place]: 4.92 Aortic Valve AoV Pk Kristian: 1.48 AoV Mn Kristian: 0.98 AoV VTI: 0.28 AoV Pk Grad: 9.00 Aov Mn Grad: 5.00 LVOT LVOT Pk Kristian: 0.88 LVOT Mn Kristian: 0.57 LVOT VTI: 0.16 LVOT Pk Grad: 3.00 LVOT Mn Grad: 2.00 Diastolic Function MV Pk E: 0.81 MV Pk A: 0.72 E/A: 1.10 E'Medial: 13.30 E/E' Med: 6.10 E' Laterial: 10.30 E/E' Lat: 7.90 Right Ventricle TAPSE (mm): 39.10 Tricuspid Valve TR Pk Kristian: 1.98 TR Pk Grad: 16.00 Pulmonary Valve PV Pk Kristian: 1.24 Peak PV Grad: 6.00 Updated in Other Vendor System with Status of Final Curt Doshi MD electronically signed on 10/22/2022 1:00:56 PM with status of Final
== END ==
LOC: HO.CARD 13:06
PROVIDERS: PCP Registered Nurse; Visit Provider Registered Nurse
DX: I10 Essential (primary) hypertension (principal)
CPT/HCPCS: 93306

== ENCOUNTER 2023-05-10 11:11 | Outpatient (REF) | payer MEDICAID, SELFPAY ==
[2023-05-10 13:35] LABS: Estimated Average Glucose 117 mg/dL; Hemoglobin A1c % 5.7 % (<6.0)
[2023-05-10 13:44] LABS: Alanine Aminotransferase 26 U/L (0-40); Albumin Level 3.9 g/dL (3.5-5.0); Alkaline Phosphatase 90 U/L (39-117); Anion Gap 11 (12-20); Aspartate Amino Transferase 22 U/L (5-37); Bilirubin Total 0.6 mg/dL (0.0-1.0); Blood Urea Nitrogen 14 mg/dL (9-16); Calcium 11.1 mg/dL (8.4-10.2); Carbon Dioxide 31 mmol/L (22-29); Chloride 102 mmol/L (96-108); Cholesterol 184 mg/dL (<200); Estimated Glomerular Filt Rate > 60; Glucose Random 99 mg/dL (60-115); HDL Cholesterol 40 mg/dL (>40); LDL Cholesterol Calculated 125 mg/dL (<100); Potassium 3.4 mmol/L (3.3-5.1); Sodium 141 mmol/L (135-145); Total Protein 8.3 g/dL (6.5-8.0); Triglycerides 98 mg/dL (<150)
[2023-05-10 14:00] LABS: TSH reflex Free T4 2.75 uIU/mL (0.32-4.0)
== END 2023-05-10 11:12 | disposition home or self-care (01) ==
LOC: HO.HHCL 11:11
PROVIDERS: Visit Provider Registered Nurse
DX: I10 Essential (primary) hypertension (principal); E66.01 Morbid (severe) obesity due to excess calories; Z13.1 Encounter for screening for diabetes mellitus
CPT/HCPCS: 36415; 80053; 80061; 83036; 84443

== ENCOUNTER 2024-06-26 10:51 | Outpatient (REF) | payer MEDICAID, SELFPAY ==
[2024-06-26 13:10] LABS: MANUAL DIFF FLAG NO
[2024-06-26 13:16] LABS: Basophils Percent Auto 0.6 % (0-2); Eosinophils Percent Auto 0.6 % (0-4); Hematocrit 45.5 % (42.0-52.0); Hemoglobin 14.7 g/dl (14.0-18.0); Imm Gran Abs Auto 0.05 X10*3/uL (0.00-0.03); Imm Gran Pct Auto 0.7 % (0.0-0.4); Lymphocytes Absolute Auto 2.6 X10*3/uL (1.2-4.9); Lymphocytes Percent Auto 35.7 % (20-40); Mean Corpuscular HGB Conc 32.3 g/dl (31.0-36.0); Mean Corpuscular Hemoglobin 29.1 pg (27.0-33.0); Mean Corpuscular Volume 90.1 fL (80.0-98.0); Mean Platelet Volume 9.6 fL (9.4-12.4); Monocytes Absolute Auto 0.5 X10*3/uL (0.1-1.2); Neutrophils Percent Auto 55.4 % (45-73); Platelet Count 348 X10*3/uL (160-400); Red Blood Count 5.05 X10*6/uL (4.60-5.80); Red Cell Distribution Width 14.8 % (11.0-16.0); White Blood Count 7.2 X10*3/uL (4.8-10.8)
[2024-06-26 13:28] LABS: Estimated Average Glucose 108 mg/dL; Hemoglobin A1C 136.0434 umol/L; Hemoglobin A1c % 5.4 % (<6.0); Total Hemoglobin (HGBA1C) 3828.5726 umol/L
[2024-06-26 13:36] LABS: Creatinine Urine 226.75 mg/dL; Microalbum/Creatinine Ratio Ur 10.5 ug/mg cr (<30)
[2024-06-26 13:49] LABS: HIV AB/AG Nonreactive (Nonreactive); HIV Num 1 0.06 S/CO (0.00-0.99)
[2024-06-26 13:55] LABS: Alanine Aminotransferase 27 U/L (0-40); Albumin Level 3.9 g/dL (3.5-5.0); Alkaline Phosphatase 96 U/L (39-117); Anion Gap 13 (12-20); Aspartate Amino Transferase 29 U/L (5-37); Bilirubin Total 0.5 mg/dL (0.0-1.0); Blood Urea Nitrogen 14 mg/dL (9-16); Calcium 10.9 mg/dL (8.4-10.2); Carbon Dioxide 30 mmol/L (22-29); Chloride 103 mmol/L (96-108); Cholesterol 181 mg/dL (<200); Estimated Glomerular Filt Rate > 60; Glucose Random 106 mg/dL (60-115); HDL Cholesterol 39 mg/dL (>40); LDL Cholesterol Calculated 122 mg/dL (<100); Potassium 3.3 mmol/L (3.3-5.1); Sodium 143 mmol/L (135-145); TSH reflex Free T4 3.01 uIU/mL (0.32-4.0); Total Protein 8.1 g/dL (6.5-8.0); Triglycerides 100 mg/dL (<150)
[2024-06-26 17:12] LABS: CT PCR NOT DETECTED (Not Detect.); NG PCR NOT DETECTED (Not Detect.)
[2024-06-28 10:13] LABS: RPR Rapid Plasma Reagin NON-REACTIVE (NON-REACTIVE)
[2024-06-28 14:54] LABS: HCV Log PCR <1.18 NOT DETECTED Log IU/mL (NOT DETECTED); HepC Viral Load <15 NOT DETECTED IU/mL (NOT DETECTED)
== END 2024-06-26 10:52 | disposition home or self-care (01) ==
LOC: HO.HHCL 10:51
PROVIDERS: Visit Provider Registered Nurse
DX: Z00.00 Encounter for general adult medical examination without abnormal findings (principal); Z11.3 Encounter for screening for infections with a predominantly sexual mode of transmission
CPT/HCPCS: 80053; 80061; 82043; 82570; 83036; 84443; 85025; 86592; 87389; 87491; 87522; 87591

== ENCOUNTER 2024-07-26 13:14 | Outpatient (REF) | payer MEDICAID, SELFPAY ==
--- OUTSIDE RECORDS SUMMARY | 2024-07-26 13:47 | XMS_ITS | Encounter Summary ---
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 Pilot Crop Dusting Name Role Phone Yane Cisneros Primary Care Provider Reason for Visit * Reason Onset Date Comments Referral 07/14/2022 Encounter Details Date Type Department Care Team ([facility] st Contact Info) Description 07/14/2022 Telephone [facility] [address] [place] [address] Yane Cisneros FNP [address] [place], [place] [id number] Referral Social History Tobacco Use Types Packs/Day Years Used Date Smoking Tobacco: Never Assessed Depression Answer Date Recorded Patient Health Questionnaire-9 Score 6 11/22/2023 Patient Health Questionnaire-9 Score 6 11/22/2023 Last PHQ-9: Questionnaire Data Not on file 0 11/22/2023 Housing Stability Answer Date Recorded What is your housing situation today? I have katrina vail 11/22/[address] you li ve. Do you have problems with any of the following? None of the above 11/22/2023 Food Insecurity Answer Date Recorded Within the past 12 months, y ou worried that your food would run out before you got money to buy more: Never True 11/22/2023 Within the past 12 months,th e food you bought just didn't last and you didn't have enough money to get more: Never True 10/2023 Transportation Answer Date Recorded In the past 12 months, has l ack of transportation kept you from medical appts, meetings, work or from getting things needed for daily living? No 11/22/2023 Utilities Answer Date Recorded In the past 12 months, has t he electric, gas, oil or water company threatened to shut off services in your home? No 11/22/2023 Depression Answer Date Recorded Patient Health Questionnaire-2 Score 2 11/22/2023 Sex and Gender Information Value Date Recorded Sex Assigned at Male 04/18/2022 10:39 AM EDT Legal Sex Male 10:39 AM EDT Gender Identity Male 04/18/2022 10:39 AM EDT Sexual Orientation Choose not to disclose 2021 10:39 AM EDT COVID-19 Exposure Response Date Recorded In the last 10 days, have yo u been in contact with someone who was confirmed or suspected to have Coronavirus/COVID-19? No / Unsure 11/07/2022 3:22 PM EDT documented as of this encounter Miscellaneous Notes * Telephone Encounter - Taylor Martin - 07/30/2022 1:36 PM EST Pt Patient will recieve approval / denial letter via mail. PT-1 Request [id number] Authorized [place] [id number] PT-1 Request [id number] Authorized [place] [id number] * Telephone Encounter - Jenna Ibanez - 07/14/2022 11:04 AM EST Tc from pt requesting a PT-1 Form, States has an upcoming appt. PT 1 request Name of facility : [facility] Address : [address] [place] [address] Specialty : physical therapy Time : 10:30am Date : 07/20/22 Fax N/a Wheel Chair : no [employer] : Yes Please contact at [phone] documented in this encounter Plan of Treatment Not on file documented as of this encounter Visit Diagnoses Not on filedocumented in this encounter Care Teams Airplane Pilot Crop Dusting Relationship Specialty Start Date End Date Yane Cisneros FNP [address] [place] [address] PCP - General Family Medicine 11/26/21 documented as of this encounter
--- OUTSIDE RECORDS SUMMARY | 2024-07-26 13:47 | XMS_ITS | Encounter Summary ---
Author Organization [email or web address] Address [address] [facility] 7[address] [place] [address] Care Team Providers Care Bulk Sausage Casing Tier Off Name Role Phone Yane Cisneros Primary Care Provider [phone] Encounter Details Date Type Department Care Team ([facility] st Contact Info) Description 06/26/2024 9:45 AM EST Office Visit [facility] MEDICINE [address] [place] [address] Yane Cisneros FNP [address] [place], [place] [phone] Severe obesity (BMI >= 40) (CMS/HCC) (Primary Dx); Primary hypertension; Encounter for immunization; Healthcare maintenance; Dietary counseling; Exercise counseling Social History Tobacco Use Types Packs/Day Years Used Date Smoking Tobacco: Never Smokeless Tobacco: Never Tobacco Cessation:Counseling Given: Not Answered Alcohol Use Standard Drinks/Week Comments Never 0 (1 standard drink = 0.6 oz pur e alcohol) Depression Answer Date Recorded Patient Health Questionnaire-9 [...] not to disclose 2021 10:39 AM EDT documented as of this encounter Last Filed Vital Signs Vital Sign Reading Time Taken Comments Blood Pressure 121/73 06/26/2024 9:57 AM EST Pulse 104 06/26/2024 9:57 AM EST Temperature 36.1 ??C (97 ??F) 06/26/2024 9:57 AM EST Respiratory Rate 20 06/26/2024 9:57 AM EST Oxygen Saturation 95% 06/26/2024 9:57 AM EST Inhaled Oxygen Concentration - - Weight 250 kg (550 lb 6.4 oz) 06/26/2024 9:57 AM EST Height 182.9 cm (6') 06/26/2024 9:57 AM EST Body Mass Index 74.65 06/26/2024 9:57 AM EST documented in this encounter Patient Instructions * Patient Instructions* MARCIANO Katz - 06/26/2024 9:45 AM EST Wt Readings from Last 10 Encounters: 06/26/24 (!) 550 lb 6.4 oz (250 kg) 02/21/24 (!) 562 lb (255 kg) 12/20/23 (!) 572 lb 2 oz (260 kg) 11/22/23 (!) 576 lb 3 oz (261 kg) 10/11/23 (!) 589 lb (267 kg) 06/07/23 (!) 587 lb 8 oz (266 kg) 05/10/23 (!) 590 lb (268 kg) 01/16/23 (!) 578 lb 8 oz (262 kg) 11/07/22 (!) 595 lb 12 oz (270 kg) 10/10/22 (!) 604 lb 8 oz (274 kg) documented in this encounter Progress Notes * MARCIANO Katz - 06/26/2024 9:45 AM EST Subjective: Patient ID: Dwayne Vizcarra is a 33 y.o. male w/ PMH hypertension and obesity who presents to the office for follow up visit - weight management. HPI Last PCP appt: 02/21/24 Increased to Wegovy 1.7mg subcutaneous weekly Apr 2024. No med SE. Has not had med for the past 4-6weeks due to availability. Continues with nutritious food with calorie restriction. Physical activity: stationary bike/treadmill Wt Readings from Last 4 Encounters: 06/26/24 (!) 550 lb 6.4 oz (250 kg) 02/21/24 (!) 562 lb (255 kg) 12/20/23 (!) 572 lb 2 oz (260 kg) 11/22/23 (!) 576 lb 3 oz (261 kg) Review of Systems Constitutional: Negative for chills and fever. Respiratory: Negative for shortness of breath and wheezing. Cardiovascular: Negative for chest pain and palpitations. Gastrointestinal: Negative for diarrhea, nausea and vomiting. Neurological: Negative for dizziness. Visit Vitals BP 121/73 (BP Location: Right arm, Patient Position: Sitting, BP Cuff Size: Large adult) Pulse 104 Temp 97 ??F (36.1 ??C) (Temporal) Resp 20 Ht 6' (1.829 m) Wt (!) 550 lb 6.4 oz (250 kg) SpO2 95% BMI 74.65 kg/m?? Smoking Status Never BSA 3.56 m?? Physical Exam Vitals reviewed. Constitutional: Appearance: Normal appearance. He is obese. HENT: Head: Atraumatic. Right Ear: External ear normal. Left Ear: External ear normal. Pulmonary: Effort: Pulmonary effort is normal. Neurological: Mental Status: He is alert and oriented to person, place, and time. Psychiatric: Mood and Affect: Mood normal. Behavior: Behavior normal. Problem List Items Addressed This Visit Circulatory Hypertensive disorder Overview -Goal <140/90 mmHg -Denies symptoms including chest pain, SOB, MEYER, dizziness, blurry vision, N/V/D -Continues with healthy lifestyle interventions - routine physical activity with treadmill at home Current med regimen: amlodipine 5mg QAM Chlorthalidone 75mg QAM Olmesartan 40mg QPM Baseline EKG 10/10/22 with significant artifact, although no concerning ST or T wave changes ED/urgent care precautions Current Assessment & Plan Well controlled, cont current regimen Endocrine/Metabolic Severe obesity (BMI >= 40) (CMS/[facility]) - Primary Current Assessment & Plan - Med start: November 2023 (576 lbs) - Has lost 26 lbs since initiating tx with Wegovy - 4.5% weight loss over 6 months -Continues with physical activity, nutrition and reduced-calorie intake Plan: start Zepbound 2.5mg subcutaneous weekly. Reviewed med safety and SE - Repeat labs Office Visit on 05/10/2023 Component Value Ref Range Triglycerides 98 <150 mg/dL Cholesterol 184 <200 mg/dL LDL Cholesterol Calculated 125 (H) <100 mg/dL HDL Cholesterol 40 (L) >40 mg/dL Hemoglobin A1c 5.7 <6.0 % Estimated Average Glucose 117 mg/dL Sodium 141 135 - 145 mmol/L Potassium 3.4 3.3 - 5.1 mmol/L Urea Nitrogen (BUN) 14 9 - 16 mg/dL Creatinine 1.08 0.5 - 1.4 mg/dL TSH reflex Free T4 2.75 0.32 - 4.0 uIU/mL Relevant Medications Tirzepatide-Weight Management (Zepbound) 2.5 MG/0.5ML solution auto-injector Other Visit Diagnoses Encounter for immunization Relevant Orders FLU VACCINE TRIVALENT (Fluarix) 6 mo + (Completed) Healthcare maintenance Relevant Orders Albumin, Random Urine W/Creatinine (Completed) Lipid Panel, Standard (Completed) Hemoglobin A1c (Completed) TSH with Reflex to Free T4 (Completed) Comprehensive Metabolic Panel (Completed) CBC auto differential (Completed) Chlamydia/N. Gonorrhoeae RNA, TMA, Urogenitial Hepatitis C Viral RNA, Quantitative, Real-Time PCR RPR (Monitor) with Reflex to Titer HIV-1/2 Antigen and Antibodies, Fourth Generation, with Reflexes (Completed) Follow up: 3 months for Weight Management & hypertension, sooner PRN * Erika Bae RN - 06/26/2024 9:45 AM EST TC to patient. Reviewed labs results and recommendation. Patient stated understanding and agreed with the plan. Patient asked about FU appt, none scheduled, will send this to provider to find out when to FU. documented in this encounter Miscellaneous Notes * Assessment & Plan Note - MARCIANO Katz - 06/26/2024 3:30 PM ESTAssociated Problem(s): Hypertensive disorder Well controlled, cont current regimen * Assessment & Plan Note - MARCIANO Katz - 06/25/2024 9:03 PM ESTAssociated Problem(s): Severe obesity (BMI >= 40) (CMS/HCC) - Med start: November 2023 (576 lbs) - Has lost 26 lbs since initiating tx with Wegovy - 4.5% weight loss over 6 months -Continues with physical activity, nutrition and reduced-calorie intake Plan: start Zepbound 2.5mg subcutaneous weekly. Reviewed med safety and SE - Repeat labs Office Visit on 05/10/2023 Component Value Ref Range Triglycerides 98 <150 mg/dL Cholesterol 184 <200 mg/dL LDL Cholesterol Calculated 125 (H) <100 mg/dL HDL Cholesterol 40 (L) >40 mg/dL Hemoglobin A1c 5.7 <6.0 % Estimated Average Glucose 117 mg/dL Sodium 141 135 - 145 mmol/L Potassium 3.4 3.3 - 5.1 mmol/L Urea Nitrogen (BUN) 14 9 - 16 mg/dL Creatinine 1.08 0.5 - 1.4 mg/dL TSH reflex Free T4 2.75 0.32 - 4.0 uIU/mL documented in this encounter Plan of Treatment Not on file documented as of this encounter Procedures Procedure Name Priority Date/Time Associated Diagnosis Comments HEPATITIS C VIRAL RNA, QUANTITATIVE, REAL-TIME PCR Routine 06/26/2024 10:58 AM EST Healthcare maintenance RPR (MONITOR) W/REFL TITER Routine 06/26/2024 10:58 AM EST Healthcare maintenance TSH W/REFLEX TO FT4 Routine 06/26/2024 1 0:53 AM EST Healthcare maintenance ALBUMIN, RANDOM URINE W/CREATININE Routine 06/26/2024 10:53 AM EST Healthcare maintenance CBC WITH AUTO DIFFERENTIAL Routine 06/26/2024 10:53 AM EST Healthcare maintenance CHLAMYDIA/N. GONORRHOEAE RNA, TMA, UROGENITAL Routine 06/26/2024 10:53 AM EST Healthcare maintenance HIV 1/2 ANTIGEN/ANTIBODY, FOURTH GENERATION W/RFL Routine 06/26/2024 10:53 AM EST Healthcare maintenance HEMOGLOBIN A1C Routine 06/26/2024 10:53 AM EST Healthcare maintenance LIPID PANEL, STANDARD Routine 06/26/2024 10:53 AM EST Healthcare maintenance COMPREHENSIVE METABOLIC PANEL Routine 06/26/2024 10:53 AM EST Healthcare maintenance documented in this encounter Results * RPR (Monitor) with Reflex to??Titer (06/26/2024 10:58 AM EST) RPR (Monitor) w/Refl Titer NON-REACTI VE NON-REACT [facility] Comment:THIS TEST WAS PERFOR MED AT:[employer] [address] [id number] DAILY MD Rapid Plasma Reagin Ab Titer TNP [facility] Blood Venous blood specimen / Unknown 06/26/2024 10:58 AM EST 06/26/2024 1:05 PM EST Yane Bakerganesh [facility] BLOOD ORDERABLES Final Res ult Performing Organization Address [facility] Co de Phone Number [facility] [address] [place] [phone] * Hepatitis C Viral RNA, Quantitative, Real-Time PCR (06/26/2024 10:58 AM EST) Pathologist [facility] Hepatitis C Viral Load <15 NOT DETECTED NOT DETECTED IU/mL [facility] HCV Log PCR <1.18 NOT DETECTED NOT DETECTED Log IU/mL [facility] Comment:For additional infor gayathri, please refer tohttp://education.[employer]/faq/YUE73a3(This link is being provided for informational/educational purposes only.)THIS TEST WAS PERFORMED AT:[employer] [place] [id number] DAILY MD Blood 06/26/2024 10:5 8 AM EST 06/26/2024 1:05 PM EST Yane Cisneros [facility] BLOOD ORDERABLES Final Res ult Performing Organization Address [facility] de Phone Number [facility] [address] [place] [phone] * HIV-1/2 Antigen and Antibodies, Fourth Generation, with Reflexes (06/26/2024 10:53 AM EST) Pathologist [facility] HIV AB/AG Nonreactive Nonreactive [facility] Comment:HIV-1 p24 Ag and/or HIV-1/HIV-2 Ab not detected.A test result that is nonreactive does not exclude thepossibility of exposure to or infection with HIV-1 and/orHIV-2. Nonreactive results in this assay for individualswith prior exposure to HIV-1 and/or HIV-2 may be due toantigen and antibody levels that are below the limit ofdetection of this assay.The [facility] HIV Ag/Ab Combo assay result andsupplemental assay results should be interpreted inconjunction with the patient's clinical presentation,history and other laboratory results. If the results areinconsistent with clinical evidence, additional testing issuggested to confirm the result. Blood Venous blood specimen / Unknown 06/26/2024 10:53 AM EST 06/26/2024 1:05 PM EST us Yane Samuelganesh [facility] BLOOD ORDERABLES Final Res ult [facility] [address] [place] [phone] * Chlamydia/N. Gonorrhoeae RNA, TMA, Urogenitial (06/26/2024 10:53 AM EST) CT PCR NOT DETECTED Not Detect. [facility] Comment:A not detected test result does not exclude the possibilityof infection because test results can be affected byimproper specimen collection, concurrent antibiotic therapy,or the number of organisms in the specimen which may bebelow the sensitivity of the test. As with many diagnostictests, results from the Xpert CT/NG assay should beinterpreted in conjunction with other laboratory andclinical data available to the clinician.Xpert CT/NG performance has not been evaluated in patientsless than 14 years of age. The assay should not be used forthe evaluationof suspected sexual abuse or for other medico-legalindications. Additional testing is recommended in anycircumstance when false positive or false negative resultscould lead to adverse medical, social or psychologicalconsequences. NG PCR NOT DETECTED Not Detect. [facility] Comment:A not detected test result does not exclude the possibilityof infection because test results can be affected byimproper specimen collection, concurrent antibiotic therapy,or the number of organisms in the specimen which may bebelow the sensitivity of the test. As with many diagnostictests, results from the Xpert CT/NG assay should beinterpreted in conjunction with other laboratory andclinical data available to the clinician.Xpert CT/NG performance has not been evaluated in patientsless than 14 years of age. The assay should not be used forthe evaluationof suspected sexual abuse or for other medico-legalindications. Additional testing is recommended in anycircumstance when false positive or false negative resultscould lead to adverse medical, social or psychologicalconsequences. Urine, Random 06/26/2024 10: 53 AM EST 06/26/2024 1:00 PM EST Narrative [facility] - 06/26/2024 5:12 PM EST Urine Yane Cisneros [facility] MICROBIOLOGY - GENERAL ORD ERABLES Final Result [facility] [address] [place] [phone] [phone] * (ABNORMAL) CBC auto differential (06/26/2024 10:53 AM EST) White Blood Count 7.2 4.8 - 10.8 X10*3/uL [facility] Red Blood Count 5.05 4.60 - 5.80 X10*6/uL [facility] Hemoglobin 14.7 14.0 - 18.0 g/dl [facility] Hematocrit 45.5 42.0 - 52.0 % [facility] Mean Corpuscular Volume 90.1 80.0 - 98.0 fL [facility] Mean Corpuscular Hemoglobin 29.1 27.0 - 33.0 pg [facility] Mean Corpuscular HGB Conc 32.3 31.0 - 36.0 g/dl [facility] Red Cell Distribution Width 14.8 11.0 - 16.0 % [facility] Platelet Count 348 160 - 400 X10*3/uL [facility] Mean Platelet Volume 9.6 9.4 - 12.4 fL [facility] Neutrophils Percent Auto 55.4 45 - 73 % [facility] Imm Gran Pct Auto 0.7(H) 0.0 - 0.4 % [facility] Lymphocytes Percent Auto 35.7 20 - 40 % [facility] Monocytes Percent Auto 7.0 2 - 11 % [facility] Eosinophils Percent Auto 0.6 0 - 4 % [facility] Basophils Percent Auto 0.6 0 - 2 % [facility] NRBC Pct Auto 0.0 0.0 - 0.2 /100WBC [facility] Neutrophils Absolute Auto 4.0 2.0 - 8.3 x10*3/uL [facility] Imm Gran Abs Auto 0.05(H) 0.00 - 0.03 X10*3/uL [facility] Lymphocytes Absolute Auto 2.6 1.2 - 4.9 X10*3/uL [facility] Monocytes Absolute Auto 0.5 0.1 - 1.2 X10*3/uL [facility] Eosinophils Absolute Auto 0.0 0.0 - 0.4 X10*3/uL [facility] Basophils Absolute Auto 0.0 0.0 - 0.2 X10*3/uL [facility] NRBC Abs Auto 0.000 0.0 - 0.012 X10*3/uL [facility] Blood Venous blood specimen / Unknown 06/26/2024 10:53 AM EST 06/26/2024 1:05 PM EST us Yane Cisneros RADIOLOGY PHYSICIAN LAB BLOOD ORDERABLES Final Res ult [facility] [address] [place] [phone] * (ABNORMAL) Comprehensive Metabolic Panel (06/26/2024 10:53 AM EST) Sodium 143 135 - 145 mmol/L [facility] Potassium 3.3 3.3 - 5.1 mmol/L [facility] Chloride 103 96 - 108 mmol/L [facility] Carbon Dioxide 30(H) 22 - 29 mmol/L [facility] Anion Gap 13 12 - 20 [facility] Urea Nitrogen (BUN) 14 9 - 16 mg/dL [facility] Creatinine, Serum 1.10 0.5 - 1.4 mg/dL [facility] Estimated Glomerular Filt Rate >60 [facility] Comment:Chronic Kidney Disea se: Estimated GFR < 60 mL/min/[id number] Kidney Disease: Estimated GFR < 15 mL/min/1.73m2 Glucose 106 60 - 115 mg/dL [facility] Calcium 10.9(H) 8.4 - 10.2 mg/dL [facility] Bilirubin, Total 0.5 0.0 - 1.0 mg/dL [facility] Aspartate Amino Transferase 29 5 - 37 U/L [facility] Alanine Aminotransferase 27 0 - 40 U/L [facility] Total Protein 8.1(H) 6.5 - 8.0 g/dL [facility] Albumin Level 3.9 3.5 - 5.0 g/dL [facility] Alkaline Phosphatase 96 39 - 117 U/L [facility] Blood Venous blood specimen / Unknown 06/26/2024 10:53 AM EST 06/26/2024 1:05 PM EST Yane Cisneros [facility] BLOOD ORDERABLES Final Res ult Performing Organization Address City/[facility]/ZIP Co de Phone Number [facility] [address] [place] [phone] * TSH with Reflex to Free T4 (06/26/2024 10:53 AM EST) TSH reflex Free T4 3.01 0.32 - 4.0 uIU/mL [facility] Blood 06/26/2024 10:5 3 AM EST 06/26/2024 1:05 PM EST Yane Blayne [facility] BLOOD ORDERABLES Final Res ult Performing Organization Address City/[facility]/ZIP Co de Phone Number [facility] [address] [place] [phone] * Hemoglobin A1c (06/26/2024 10:53 AM EST) Hemoglobin A1c 5.4 <6.0 % [facility] Comment:Hemoglobin A1C Refer ence Range Adults: 4.8 - 6.0 % Non diabetic: < 6.0 % Goal: < 7.0 %Additional Action Suggested: > 8.0 %Note: Hemoglobin A1c results are invalid for patients with abnormal amounts of HbF. Blood transfusions may impact the HbA1c concentration in the patient sample. Estimated Average Glucose 108 mg/dL [facility] Comment:eAG = Estimated ave rage glucose which is %A1C expressed asaverage glucose, using the formula of the D0N-LzwnolwOnvgypy Glucose study (ADAG), Diabetes Care, Vol.31,#8,Jan. 2007 Blood Venous blood specimen / Unknown 06/26/2024 10:53 AM EST 06/26/2024 1:05 PM EST us Yane Cisneros RADIOLOGY PHYSICIAN LAB BLOOD ORDERABLES Final Res ult [facility] [address] [place] [phone] * (ABNORMAL) Lipid Panel, Standard (06/26/2024 10:53 AM EST) Triglycerides 100 <150 mg/dL [facility] Comment:Desirable Triglyceri de: less than 150 mg/dLBorderline High Triglyceride 150-199 mg/dLHigh Triglyceride: 200-499 mg/dLVery High Triglyceride: greater than or equal to 5OO mg/dL Cholesterol 181 <200 mg/dL [facility] Comment:Desirable Cholestero l: less than 200 mg/dLBorderline High Cholesterol: 200-239 mg/dLHigh Cholesterol: greater than 239 mg/dL LDL Cholesterol Calculated 122(H) <100 mg/dL [facility] Comment:Desirable LDL: less than 100 mg/dLNear Optimal/Above Optimal LDL: 110- 129 mg/dLBorderline High LDL: 130-159 mg/dLHigh LDL: 160-189 mg/dLVery High LDL: greater than or equal to 190 mg/dL HDL Cholesterol 39(L) >40 mg/dL [facility] Comment:Desirable HDL: great er than 40 mg/dL Note: This HDL assay may give artificially low results in patients with liver disease. Blood Venous blood specimen / Unknown 06/26/2024 10:53 AM EST 06/26/2024 1:05 PM EST us Yane [facility] LAB BLOOD ORDERABLES Final Res ult Performing Organization Address [facility] Co de Phone Number [facility] [address] [place] [phone] * Albumin, Random Urine W/Creatinine (06/26/2024 10:53 AM EST) Creatinine, Urine 226.75 mg/dL [facility] Microalbumin Urine 24.0 mg/L [facility] Microalbum Creatinine Ratio Ur 10.5 <30 ug/mg cr [facility] Comment:Albumin/Creatinine R atio Reference Ranges: Normal: < 30 ug/mg creatinine Microalbuminuria: 30 - 300 ug/mg creatinineClinical Albuminuria: > 300 ug/mg creatinine Urine 06/26/2024 10:5 3 AM EST 06/26/2024 1:00 PM EST us Yane GIMENEZP LAB URINE ORDERABLES Final Res ult Performing Organization Address [facility] de Phone Number [facility] [address] [place] [phone] documented in this encounter Visit Diagnoses Diagnosis Severe obesity (BMI >= 40) (CMS/HCC)- Primary Primary hypertension Unspecified essential hypertension Encounter for immunization Healthcare maintenance Dietary counseling Dietary surveillance and counseling Exercise counseling documented in this encounter Additional Health Concerns Assessment Noted Time PHQ-9 Depression Total Score: 6 11/22/19 24 11:50 AM EDT documented as of this encounter Care Teams Bulk Sausage Casing Tier Off Relationship Specialty Start Date End Date Yane Cisneros FNP [address] [place] [phone] PCP - General Family Medicine 11/26/21 documented as of this encounter
--- OUTSIDE RECORDS SUMMARY | 2024-07-26 13:47 | XMS_ITS | Encounter Summary ---
Author Organization [employer] Address [address] [facility] [address] [place] [address] Care Team Providers Care Doughnut Machine Operator Helper Name Role Phone Yane Cisneros Primary Care Provider [phone] Reason for Visit * Reason Onset Date Comments FYI 01/16/2023 Encounter Details Date Type Department Care Team (Late st Contact Info) Description 01/16/[address] [facility] MEDICINE [address] [place] [address] Yane Cisneros FNP [address] [place], [place] [phone] FYI Social History Tobacco Use Types Packs/Day Years Used Date Smoking Tobacco: Never Smokeless Tobacco: Never Alcohol Use Standard Drinks/Week Comments Never 0 (1 standard drink = 0.6 oz pur e alcohol) Depression Answer Date Recorded Patient Health Questionnaire-9 Score 2 11/07/2022 Depression Answer Date Recorded Patient Health Questionnaire-2 Score 0 11/07/2022 Sex and Gender Information Value Date Recorded Sex Assigned at Male 04/18/2022 10:39 AM EDT Legal Sex Male 10:39 AM EDT Gender Identity Male 04/18/2022 10:39 AM EDT Sexual Orientation Choose not to disclose 2021 10:39 AM EDT documented as of this encounter Miscellaneous Notes * Telephone Encounter - Jenna Ibanez - 01/16/2023 3:54 PM EDT Tc from [facility] would like to inform PCP that they faxed over a form with pt information for PCP to review. Advised will forward message as a FYI. * Telephone Encounter - Juana Jimi - 01/16/2023 2:03 PM EDT Tc from [facility] returning PCP call. Please contact [facility] at [phone] documented in this encounter Plan of Treatment Not on file documented as of this encounter Visit Diagnoses Not on filedocumented in this encounter Additional Health Concerns Assessment Noted Time PHQ-9 Depression Total Score: 2 11/08/19 23 3:55 PM EDT documented as of this encounter Care Teams Doughnut Machine Operator Helper Relationship Specialty Start Date End Date Yane Cisneros FNP [address] [place] [phone] PCP - General Family Medicine 11/26/21 documented as of this encounter
--- OUTSIDE RECORDS SUMMARY | 2024-07-26 13:47 | XMS_ITS | Encounter Summary ---
Author Organization [employer] Address [address] [facility] [address] [place] [address] Care Team Providers Care Communicable Disease Specialist Name Role Phone Yane Cisneros Primary Care Provider [phone] Reason for Visit * Reason Comments Med Refill Encounter Details Date Type Department Care Team ([facility] Contact Info) Description 07/08/2024 Refill [facility] [address] [place], [place] [phone] Yane Cisneros FNP [address] [place], [place] [phone] Social History Tobacco Use Types Packs/Day Years [...] AM EDT documented as of this encounter Plan of Treatment Not on file documented as of this encounter Visit Diagnoses Not on filedocumented in this encounter Additional Health Concerns Assessment Noted Time PHQ-9 Depression Total Score: 6 11/22/19 24 11:50 AM EDT documented as of this encounter Care Teams Communicable Disease Specialist Relationship Specialty Start Date End Date Yane Cisneros FNP [address] [place] [phone] PCP - General Family Medicine 11/26/21 documented as of this encounter
--- OUTSIDE RECORDS SUMMARY | 2024-07-26 13:47 | XMS_ITS | Encounter Summary ---
Author Organization [employer] Address [address] [facility] [address] [place] [address] Care Team Providers Care Product Support Representative Name Role Phone Yane Cisneros Primary Care Provider [phone] Encounter Details Date Type Department Care Team ([facility] st Contact Info) Description 09/19/2022 Abstract [facility] MEDICINE [address] [place] [address] Yane Cisneros FNP [address] [place], [place] [id number] Social History Tobacco Use Types Packs/Day Years Used Date Smoking Tobacco: Never Smokeless Tobacco: Never Alcohol Use Standard Drinks/Week Comments Never 0 (1 standard drink = 0.6 oz pur e alcohol) Sex and Gender Information Value Date Recorded Sex Assigned at Male 04/18/2022 10:39 AM EDT Legal Sex Male 10:39 AM EDT Gender Identity Male 04/18/2022 10:39 AM EDT Sexual Orientation Choose not to disclose 2021 10:39 AM EDT COVID-19 Exposure Response Date Recorded In the last 10 days, have roland grace been in contact with someone who was confirmed or suspected to have Coronavirus/COVID-19? No / Unsure 09/12/2022 11:14 AM EDT documented as of this encounter Plan of Treatment Not on file documented as of this encounter Visit Diagnoses Not on filedocumented in this encounter Care Teams Product Support Representative Relationship Specialty Start Date End Date Yane Cisneros FNP [address] [place] [address] PCP - General Family Medicine 11/26/21 documented as of this encounter
--- OUTSIDE RECORDS SUMMARY | 2024-07-26 13:47 | XMS_ITS | Encounter Summary ---
Author Organization [email or web address] Address [address] [facility] [address] [place] [address] Care Team Providers Care Bit Bender Name Role Phone Blayne Yane TARIQ Primary Care Provider [phone] Encounter Details Date Type Department Care Team (Late st Contact Info) Description 07/24/2024 Orders Only [facility] MEDICINE [address] [place] [address] Yane Cisneros FNP [address] [place], [place] [phone] Hypercalcemia (Primary Dx) Social History Tobacco Use Types Packs/Day Years [...] as of this encounter Plan of Treatment Scheduled Orders Name Type Priority Associated Diagnoses Orde r Schedule Comprehensive Metabolic Panel Lab Routine Hypercalcemia Expected: 07/24/2024 (Approximate), Expires: 07/24/2025 Vitamin D, 25-Hydroxy, Total, Immunoassay Lab Routine Hypercalcemia Expected: 07/24/2024 (Approximate), Expires: 07/24/2025 PTH, Intact Without Calcium Lab Routine Hypercalcemia Expected: 07/24/2024, Expires: 07/24/2025 Protein, Total and Protein??Electrophoresis Lab Routine Hypercalcemia Expected: 07/24/2024 (Approximate), Expires: 07/24/2025 documented as of this encounter Visit Diagnoses Diagnosis Hypercalcemia- Primary documented in this encounter Additional Health Concerns Assessment Noted Time PHQ-9 Depression Total Score: 6 11/22/19 24 11:50 AM EDT documented as of this encounter Care Teams Bit Bender Relationship Specialty Start Date End Date Yane Cisneros FNP [address] [place] [address] PCP - General Family Medicine 11/26/21 documented as of this encounter
--- OUTSIDE RECORDS SUMMARY | 2024-07-26 13:47 | XMS_ITS | Encounter Summary ---
Author Organization [email or web address] Address [address] [facility] [address] [place] [address] Care Team Providers Care Physical Medicine Teacher Name Role Phone Yane Cisneros Primary Care Provider [phone] Reason for Visit * Reason Onset Date Comments PA 07/04/2024 Encounter Details Date Type Department Care Team (Late st Contact Info) Description 07/04/2024 Telephone [facility] MEDICINE [address] [place] [address] Yane Cisneros FNP [address] [place], [place] [id number] PA Social History Tobacco Use Types Packs/Day Years [...] encounter Miscellaneous Notes * Telephone Encounter - Leelee Armando LPN - 07/04/2024 1:20 PM EST Pa generated and faxed to TC from pt requesting a PA for Med Tirzepatide-Weight Management (Zepbound) 2.5 MG/0.5ML solution auto-injector Contact pt at [phone] * Telephone Encounter - Demetrius Dominguez - 07/04/2024 10:01 AM EST TC from pt requesting a PA for Med Tirzepatide-Weight Management (Zepbound) 2.5 MG/0.5ML solution auto-injector Contact pt at [phone] documented in this encounter Plan of Treatment Not on file documented as of this encounter Visit Diagnoses Not on filedocumented in this encounter Additional Health Concerns Assessment Noted Time PHQ-9 Depression Total Score: 6 11/22/19 24 11:50 AM EDT documented as of this encounter Care Teams Physical Medicine Teacher Relationship Specialty Start Date End Date Yane Cisneros FNP [address] [place] [address] PCP - General Family Medicine 11/26/21 documented as of this encounter
--- OUTSIDE RECORDS SUMMARY | 2024-07-26 13:47 | XMS_ITS | Encounter Summary ---
Author Organization [employer] Address [address] [facility] [address] [place] [address] Care Team Providers Care Brim And Crown Presser Name Role Phone Yane Cisneros PLANNER SCHEDULER Primary Care Provider [phone] Encounter Details Date Type Department Care Team (Latest Contact Info) Description 06/26/2024 Travel Social History Tobacco Use Types Packs/Day Years [...] documented as of this encounter Care Teams Brim And Crown Presser Relationship Specialty Start Date End Date Yane Cisneros FNP [address] [place] [address] PCP - General Family Medicine 11/26/21 documented as of this encounter
--- OUTSIDE RECORDS SUMMARY | 2024-07-26 13:47 | XMS_ITS | Clinical Summary ---
Author Organization [employer] Address [address] [facility] [address] [place] [address] Care Team Providers Care Two Way Radio Technician Name Role Phone Yane Cisneros MARCIANO Primary Care Provider [phone] Allergies No known active allergies Medications Blood Pressure Monitor kitIndications: Primary hypertension Use to check BP twice weekly and when symptomatic 1 kit 06/07/20 23 Active olmesartan (BENIcar) 40 MG tablet TAKE 1 TABLET(40 MG) BY MOUTH AT BEDTIME 90 tablet 3 11/03/19 24 Active metFORMIN (Glucophage) 1000 MG tabletIndicatio ns:Severe obesity (BMI >= 40) (CMS/HCC) TAKE ONE TABLET BY MOUTH EVRY MORNING WITH BREAKFAST AND ANOTHER TABLET WITH DINNER 180 tablet 1 02/04/20 24 Active amLODIPine (Norvasc) 5 MG tabletIndicatio ns:Primary hypertension TAKE 1 TABLET(5 MG) BY MOUTH IN THE MORNING 90 tablet 3 02/21/20 24 Active chlorthalidone (Hygroton) 50 MG tablet TAKE 1 TABLET( 50 MG) BY MOUTH IN THE MORNING. TAKE IN COMBINATION WITH 25 MG DOSE FOR TOTAL OF 75 MG 90 tablet 3 05/15/20 24 Active Tirzepatide-Johnny ght Management (Zepbound) 2.5 MG/0.5ML solution auto-injectorIn dications:Obesi ty Inject 0.5 mL (2.5 mg) under the skin 1 (one) time per week. 2 mL 06/26/19 25 025 Active chlorthalidone (Hygroton) 25 MG tablet TAKE 1 TABLET(25 MG) BY MOUTH IN THE MORNING( TAKE WITH 50 MG TABLET FOR TOTAL DAILY DOSE 75 MG) 90 tablet 3 07/09/19 25 Active chlorthalidone (Hygroton) 25 MG tablet Take 1 tablet (25 mg) by mouth in the morning. (Take with 50mg tablet for total daily dose 75mg) 90 tablet 3 05/03/20 23 025 Discontinued Active Problems Problem Noted Date Diagnosed Date Lymphedema of both lower extremities 09/18/2022 Assessment & Plan (01/23/2023 8:31 PM EDT): ?? Return to lymphedema clinic once stocking ordered/available ?? Reports has not heard regarding [employer] eval. Message previously sent to [facility] Forms team for follow up. Outgoing TC placed to [facility] OT clinic regarding further care, encouraged to call pt directly. Assessment & Plan (11/08/2022 8:04 AM EDT): ?? Return to lymphedema clinic once stocking ordered/available ?? Reports has not heard regarding [employer] eval. Message sent to [facility] Forms team for follow up. Assessment & Plan (09/18/2022 2:49 PM EDT): -Continue working with [facility] OT -DME script generated: Bilateral thigh high Juxtafit compression stockings, 40- 50 mmHg -OT requesting [employer] assistance for pt, although pt declines interest in [employer]. Reports able to complete independently. Will not initiate any further eval at this time. Lymphedema of scrotum 07/31/2022 Overview (09/18/2022): -[facility] Urology eval Apr 2022: was found to have significant scrotal lymphedema, scrotal Elephantitis - Due to the severe nature of the scrotal lymphedema - surgical reconstruction is complex -Continue following with [facility] OT clinic Assessment & Plan (10/10/2022 7:54 PM EDT): Referral for eval for [employer] services Assessment & Plan (09/18/2022 2:50 PM EDT): -DME script for male genital pad sent to following location as requested: [facility] Severe obesity (BMI >= 40) 07/31/2022 Assessment & Plan (06/26/2024 3:27 PM EST): - Med start: November 2023 (576 lbs) [...] Free T4 2.75 0.32 - 4.0 uIU/mL Assessment & Plan (02/21/2024 2:03 PM EDT): -Has lost 14lbs since med initiation (although some lapses d/t med availability) 2.4% weight loss (med start 11/27/23) -Referrals: declines interest at this time -Acanthosis nigricans noted on neck, consider relation to insulin resistance - continue metformin 1000mg BID -Wegovy approval on 10/16/23. PA# [id number] to on 04/16/24 -Reviewed medication use, SE, and teaching. Start date: 11/27/23 -Weogvy 1mg subcutaneous weekly. Plan to cont increasing dose with titration. -Continues with physical activity, nutrition and reduced-calorie intake. Office Visit on 05/10/2023 Component Value Ref [...] Free T4 2.75 0.32 - 4.0 uIU/mL Assessment & Plan (12/20/2023 3:17 PM EDT): -Referrals: declines interest at this time -Acanthosis nigricans noted on neck, consider relation to insulin resistance - continue metformin 1000mg BID -Wegovy approval on 10/16/23. DAMARIS# [id number] to on 04/16/24 -Reviewed medication use, SE, and teaching. Planned start date: 11/27/23 -Increase to Wegovy 0.5mg subcutaneous weekly, titrate dose as directed. -Continues with physical activity, nutrition and reduced-calorie intake. Office Visit on 05/10/2023 Component Value Ref [...] Free T4 2.75 0.32 - 4.0 uIU/mL Assessment & Plan (11/23/2023 8:38 AM EDT): -Referrals: declines interest at this time -Acanthosis nigricans noted on neck, consider relation to insulin resistance - continue metformin 1000mg BID -Wegovy approval on 10/16/23. DAMARIS# [id number] to on 04/16/24 -Reviewed medication use, SE, and teaching. Planned start date: 11/27/23 -Start Wegovy 0.25mg subcutaneous weekly, titrate dose as directed. -Continues with physical activity, nutrition and reduced-calorie intake. Office Visit on 05/10/2023 Component Value Ref [...] Free T4 2.75 0.32 - 4.0 uIU/mL Assessment & Plan (10/12/2023 5:56 PM EDT): -Referrals: declines interest at this time -Acanthosis nigricans noted on neck, consider relation to insulin resistance - continue metformin 1000mg BID -Start Wegovy 0.25mg subcutaneous weekly, titrate dose as directed. Reviewed med safety and SE. Continues with nutrition and reduced-calorie intake. (PA sent on 10/12/23) Office Visit on 05/10/2023 Component Value Ref [...] Free T4 2.75 0.32 - 4.0 uIU/mL Assessment & Plan (06/08/2023 5:03 PM EST): -Referrals: declines interest at this time -Acanthosis nigricans noted on neck, consider relation to insulin resistance -Increase metformin to 1000mg BID. Reviewed med safety and SE Office Visit on 05/10/2023 Component Value Ref Range ? ? Triglycerides 98 <150 mg/dL ? ? Cholesterol 184 <200 mg/dL ? ? LDL Cholesterol Calculated 125 (H) <100 mg/dL ? ? HDL Cholesterol 40 (L) >40 mg/dL ? ? Hemoglobin A1c 5.7 <6.0 % ? ? Estimated Average Glucose 117 mg/dL ? ? Sodium 141 135 - 145 mmol/L ? ? Potassium 3.4 3.3 - 5.1 mmol/L ? ? Chloride 102 96 - 108 mmol/L ? ? Carbon Dioxide 31 (H) 22 - 29 mmol/L ? ? Anion Gap 11 (L) 12 - 20 ? ? Urea Nitrogen (BUN) 14 9 - 16 mg/dL ? ? Creatinine 1.08 0.5 - 1.4 mg/dL ? ? Estimated Glomerular Filt Rate >60 ? ? Glucose 99 60 - 115 mg/dL ? ? Calcium 11.1 (H) 8.4 - 10.2 mg/dL ? ? Bilirubin, Total 0.6 0.0 - 1.0 mg/dL ? ? Aspartate Amino Transferase 22 5 - 37 U/L ? ? Alanine Aminotransferase 26 0 - 40 U/L ? ? Total Protein 8.3 (H) 6.5 - 8.0 g/dL ? ? Albumin Level 3.9 3.5 - 5.0 g/dL ? ? Alkaline Phosphatase 90 39 - 117 U/L ? ? TSH reflex Free T4 2.75 0.32 - 4.0 uIU/mL Assessment & Plan (05/13/2023 6:41 PM EST): -Referrals: declines interest at this time -Acanthosis nigricans noted on neck, consider relation to insulin resistance -START metformin 500mg BID. Reviewed med safety and SE -Repeat labs: TSH, CMP, lipid, A1c Hypertensive disorder 01/27/2022 Overview (10/12/2023): -Goal <140/90 mmHg -Denies symptoms including chest pain, SOB, MEYER, dizziness, blurry vision, N/V/D -Continues with healthy lifestyle interventions - routine physical activity with treadmill at home Current med regimen: amlodipine 5mg QAM Chlorthalidone 75mg QAM Olmesartan 40mg QPM Baseline EKG 10/10/22 with significant artifact, although no concerning ST or T wave changes ED/urgent care precautions Assessment & Plan (06/26/2024 3:30 PM EST): Well controlled, cont current regimen Assessment & Plan (02/21/2024 2:03 PM EDT): Well controlled Assessment & Plan (10/12/2023 5:54 PM EDT): BP within goal in clinic, average home reading borderline above goal. Discussed options with patient today and risks/benefits. Plan to cont regimen above, will call if average reading increases at home for consideration of increase to amlodipine 10mg daily. Assessment & Plan (11/08/2022 8:08 AM EDT): Increase chlorthalidone from 50mg daily to 75mg daily Telephone call in 2 weeks to discuss Follow up to the office in 5 weeks, sooner as needed Assessment & Plan (07/31/2022 11:05 AM EST): -Record home BP readings for the next 2 weeks and bring log to follow up appt -ED precautions reviewed Resolved Problems Problem Noted Date Diagnosed Date Resolved Date Obesity 01/27/2022 07/31/2022 Encounters Date Type Department Care Team Description 07/24/2024 Orders Only [facility] [address] [place] [phone] Yane Cisneros FNP Hypercalcemia (Primary Dx) 07/08/2024 Refill [facility] [address] [place] [address] Yane Cisneros FNP 07/04/2024 Telephone [facility] [address] [place] [phone] Yane Cisneros FNP PA 06/26/2024 9:45 AM EST Office Visit [facility] [address] [place] [phone] Yane Cisneros FNP Severe obesity (BMI >= 40) (CMS/HCC) (Primary Dx); Primary hypertension; Encounter for immunization; Healthcare maintenance; Dietary counseling; Exercise counseling 06/26/2024 Travel 06/20/2024 Telephone [facility] [address] [place] [address] Shira Bran MA Chart Prep 05/15/2024 Refill [facility] [address] [place] [address] Yane Cisneros FNP 05/03/2024 Orders Only [facility] [address] [place] [address] Yane Cisneros FNP 05/01/2024 Telephone [facility] [address] [place] [address] Yane Cisneros FNP Prior Authorization 04/29/2024 Telephone [facility] [address] [place] [address] Yane Cisneros FNP Marcela no longer covered June 19, 2024 ; FYI from Last 3 Months Immunizations Name Administration Dates Next Due Influenza injectable quadrivalent preservative f ree 05/10/2023,09/12/2022 Influenza, seasonal, injectable, preservative fr ee 06/26/2024 Pfizer Covid-19 Vaccine 12+ Bivalent 09/12/2022 Tdap 09/12/2022 Social History Tobacco Use Types Packs/Day Years [...] not to disclose 2021 10:39 AM EDT Last Filed Vital Signs Vital Sign Reading [...] Mass Index 74.65 06/26/2024 9:57 AM EST Plan of Treatment Health Maintenance Due Date Last Done Comments Family Planning (PISQ) 11/05/2003 Hepatitis B Vaccines (1 of 3 - 19+ 3-dose series) 11/05/2007 Depression Screening 11/21/2024 11/22/2023, 11/22/2023 SDOH Screening 11/21/2024 11/22/2023 Alcohol/Substance Use Screening 06/26/2025 06/26/2024 COVID-19 Vaccine (2023-2 5 season) 2025 09/12/2022, 03/24/2021, 03/03/2021 Postponed from 02/18/2024 (Patient Refused) Tobacco Screening 06/26/2025 06/26/2024 Lipid Panel 06/26/2029 06/26/2024, 05/10/2023, 03/07/2022 DTaP/Tdap/Td Vaccines (2 - T d or Tdap) 09/12/2032 09/12/2022 Zoster Vaccines (1 of 2) 2038 RSV Patients and Patients Aged 60 years or older (1 - 1-dose 75+ series) 11/05/2063 HIV Screening Completed 06/26/2024, 03/07/2022 Hepatitis C Screening Completed 06/26/2024 , 03/07/2022, 03/07/2022 Influenza Vaccine Completed 06/26/2024, 05/10/2023, 09/12/2022 HIB Vaccines Aged Out No longer eligi ble based on patient's age to complete this topic HPV Vaccines Aged Out No longer eligi ble based on patient's age to complete this topic Hepatitis A Vaccines Aged Out No long er eligible based on patient's age to complete this topic IPV Vaccines Aged Out No longer eligi ble based on patient's age to complete this topic Meningococcal Vaccine Aged Out No basilia cindy eligible based on patient's age to complete this topic Pneumococcal Vaccine: Pediatrics (0 to 5 Years) and At-Risk Patients (6 to 49) Years) Aged Out No longer eligible b ased on patient's age to complete this topic RSV under 20 months Aged Out No longe r eligible based on patient's age to complete this topic Rotavirus Vaccines Aged Out No longer eligible based on patient's age to complete this topic Procedures Procedure Name Priority Date/Time Associated Diagnosis Comments RPR (MONITOR) W/REFL TITER Routine 06/26/2024 10:58 AM EST Healthcare maintenance HEPATITIS C VIRAL RNA, QUANTITATIVE, REAL-TIME PCR Routine 06/26/2024 10:58 AM EST Healthcare maintenance HIV 1/2 ANTIGEN/ANTIBODY, FOURTH GENERATION W/RFL Routine 06/26/2024 10:53 AM EST Healthcare maintenance CBC WITH AUTO DIFFERENTIAL Routine 06/26/2024 10:53 AM EST Healthcare maintenance COMPREHENSIVE METABOLIC PANEL Routine 06/26/2024 10:53 AM EST Healthcare maintenance TSH W/REFLEX TO FT4 Routine 06/26/2024 1 0:53 AM EST Healthcare maintenance HEMOGLOBIN A1C Routine 06/26/2024 10:53 AM EST Healthcare maintenance LIPID PANEL, STANDARD Routine 06/26/2024 10:53 AM EST Healthcare maintenance ALBUMIN, RANDOM URINE W/CREATININE Routine 06/26/2024 10:53 AM EST Healthcare maintenance CHLAMYDIA/N. GONORRHOEAE RNA, TMA, UROGENITAL Routine 06/26/2024 10:53 AM EST Healthcare maintenance from Last 3 Months Results * Hepatitis C Viral RNA, Quantitative, Real-Time PCR (06/26/2024 10:58 AM EST) Hepatitis C Viral Load <15 NOT DETECTED NOT DETECTED IU/mL [facility] HCV Log PCR <1.18 NOT DETECTED NOT DETECTED Log IU/mL [facility] Comment:For additional infor mation, please refer [email or web address] [email or web address]/[email or web address](This link is being provided for informational/educational purposes only.)THIS TEST WAS PERFORMED AT:[employer] [address] [id number] DAILY MD Blood 06/26/2024 10:5 8 AM EST 06/26/2024 1:05 PM EST us Yane Cisneros [employer] LAB BLOOD ORDERABLES Final Res ult Performing Organization Address City/[facility]/ZIP Co de Phone Number [facility] [address] [place] [phone] * RPR (Monitor) with Reflex to??Titer (06/26/2024 10:58 AM EST) RPR (Monitor) w/Refl Titer NON-REACTI VE NON-REACT JENNIFER [facility] Comment:THIS TEST WAS PERFOR MED AT:[facility] [place] [id number] DAILY MD Rapid Plasma Reagin Ab Titer TNP [facility] Blood Venous blood specimen / Unknown 06/26/2024 10:58 AM EST 06/26/2024 1:05 PM EST us Yane Cisneros [employer] LAB BLOOD ORDERABLES Final Res ult [facility] [address] [place] [phone] * TSH with Reflex to Free T4 (06/26/2024 10:53 AM EST) TSH reflex Free T4 3.01 0.32 - 4.0 uIU/mL [facility] Blood 06/26/2024 10:5 3 AM EST 06/26/2024 1:05 PM EST Yane Cisneros [employer] LAB BLOOD ORDERABLES Final Res ult Performing Organization Address City/[facility]/ZIP Co de Phone Number [facility] [address] [place] [phone] * Albumin, Random Urine W/Creatinine (06/26/2024 10:53 AM EST) Creatinine, Urine 226.75 mg/dL [facility] Microalbumin Urine 24.0 mg/L [facility] Microalbum Creatinine Ratio Ur 10.5 <30 ug/mg cr [facility] Comment:Albumin/Creatinine R atio Reference Ranges: Normal: < 30 ug/mg creatinine Microalbuminuria: 30 - 300 ug/mg creatinineClinical Albuminuria: > 300 ug/mg creatinine Urine 06/26/2024 10:5 3 AM EST 06/26/2024 1:00 PM EST us Yane Cisneros [employer] [facility] URINE ORDERABLES Final Res ult [facility] [address] [place] [phone] * (ABNORMAL) CBC auto differential (06/26/2024 10:53 AM EST) White Blood Count 7.2 4.8 - 10.8 X10*3/uL [facility] Red Blood Count 5.05 4.60 - 5.80 X10*6/uL [facility] Hemoglobin 14.7 14.0 - 18.0 g/dl [facility] Hematocrit 45.5 42.0 - 52.0 % [facility] Mean Corpuscular Volume 90.1 80.0 - 98.0 fL [facility] Mean Corpuscular Hemoglobin 29.1 27.0 - 33.0 pg [facility] Mean Corpuscular HGB Conc 32.3 31.0 - 36.0 g/dl [facility] Red Cell Distribution Width 14.8 11.0 - 16.0 % [facility] Platelet Count 348 160 - 400 X10*3/uL [facility] Mean Platelet Volume 9.6 9.4 - 12.4 fL [facility] Neutrophils Percent Auto 55.4 45 - 73 % [facility] Imm Gran Pct Auto 0.7(H) 0.0 - 0.4 % [facility] Lymphocytes Percent Auto 35.7 20 - 40 % [facility] Monocytes Percent Auto 7.0 2 - 11 % [facility] Eosinophils Percent Auto 0.6 0 - 4 % [facility] Basophils Percent Auto 0.6 0 - 2 % [facility] NRBC Pct Auto 0.0 0.0 - 0.2 /100WBC [facility] Neutrophils Absolute Auto 4.0 2.0 - 8.3 x10*3/uL [facility] Imm Gran Abs Auto 0.05(H) 0.00 - 0.03 X10*3/uL [facility] Lymphocytes Absolute Auto 2.6 1.2 - 4.9 X10*3/uL [facility] Monocytes Absolute Auto 0.5 0.1 - 1.2 X10*3/uL [facility] Eosinophils Absolute Auto 0.0 0.0 - 0.4 X10*3/uL [facility] Basophils Absolute Auto 0.0 0.0 - 0.2 X10*3/uL [facility] NRBC Abs Auto 0.000 0.0 - 0.012 X10*3/uL [facility] Blood Venous blood specimen / Unknown 06/26/2024 10:53 AM EST 06/26/2024 1:05 PM EST us Yane Cisneros [facility] BLOOD ORDERABLES Final Res ult [facility] [address] [place] [address] [phone] * Chlamydia/N. Gonorrhoeae RNA, TMA, Urogenitial (06/26/2024 10:53 AM EST) CT PCR NOT DETECTED Not Detect. [facility] Comment:A not detected test result [...] psychologicalconsequences. NG PCR NOT DETECTED Not Detect. [facility] Comment:A not detected test result [...] AM EST 06/26/2024 1:00 PM EST Narrative [facility] - 06/26/2024 5:12 PM EST Urine Yane Cisneros [facility] MICROBIOLOGY - GENERAL ORD ERABLES Final Result Performing Organization Address [facility] Co de Phone Number [facility] [address] [place] [phone] * HIV-1/2 Antigen and Antibodies, Fourth Generation, with Reflexes (06/26/2024 10:53 AM EST) HIV AB/AG Nonreactive Nonreactive [facility] Comment:HIV-1 p24 Ag and/or HIV-1/HIV-2 Ab not detected.A test result that is nonreactive does not exclude thepossibility of exposure to or infection with HIV-1 and/orHIV-2. Nonreactive results in this assay for individualswith prior exposure to HIV-1 and/or HIV-2 may be due toantigen and antibody levels that are below the limit ofdetection of this assay.The [employer] HIV Ag/Ab Combo assay result andsupplemental assay results should be interpreted inconjunction with the patient's clinical presentation,history and other laboratory results. If the results areinconsistent with clinical evidence, additional testing issuggested to confirm the result. Blood Venous blood specimen / Unknown 06/26/2024 10:53 AM EST 06/26/2024 1:05 PM EST Yane Cisneros [facility] BLOOD ORDERABLES Final Res ult Performing Organization Address [facility]/ZIP Co de Phone Number [facility] [address] [place] [address] [phone] * Hemoglobin A1c (06/26/2024 10:53 AM EST) Hemoglobin A1c 5.4 <6.0 % [facility] Comment:Hemoglobin A1C Refer ence Range Adults: 4.8 - 6.0 % Non diabetic: < 6.0 % Goal: < 7.0 %Additional Action Suggested: > 8.0 %Note: Hemoglobin A1c results are invalid for patients with abnormal amounts of HbF. Blood transfusions may impact the HbA1c concentration in the patient sample. Estimated Average Glucose 108 mg/dL [facility] Comment:eAG = Estimated ave rage glucose which is %A1C expressed asaverage glucose, using the formula of the Y3W-CmmarftYrayero Glucose study (ADAG), Diabetes Care, Vol.31,#8,Jan. 2007 Blood Venous blood specimen / Unknown 06/26/2024 10:53 AM EST 06/26/2024 1:05 PM EST Yane GIMENEZP LAB BLOOD ORDERABLES Final Res ult [facility] [address] [place] [phone] * (ABNORMAL) Lipid Panel, Standard (06/26/2024 10:53 AM EST) Triglycerides 100 <150 mg/dL [facility] Comment:Desirable Triglyceri de: less than 150 mg/dLBorderline High Triglyceride 150-199 mg/dLHigh Triglyceride: 200-499 mg/dLVery High Triglyceride: greater than or equal to 5OO mg/dL Cholesterol 181 <200 mg/dL [facility] Comment:Desirable Cholestero l: less than 200 mg/dLBorderline High Cholesterol: 200-239 mg/dLHigh Cholesterol: greater than 239 mg/dL LDL Cholesterol Calculated 122(H) <100 mg/dL [facility] Comment:Desirable LDL: less than 100 mg/dLNear Optimal/Above Optimal LDL: 110- 129 mg/dLBorderline High LDL: 130-159 mg/dLHigh LDL: 160-189 mg/dLVery High LDL: greater than or equal to 190 mg/dL HDL Cholesterol 39(L) >40 mg/dL [facility] Comment:Desirable HDL: great er than 40 mg/dL Note: This HDL assay may give artificially low results in patients with liver disease. Blood Venous blood specimen / Unknown 06/26/2024 10:53 AM EST 06/26/2024 1:05 PM EST Yane Cisneros [employer] LAB BLOOD ORDERABLES Final Res ult Performing Organization Address City/[facility]/ZIP Co de Phone Number [facility] [address] [place] [phone] * (ABNORMAL) Comprehensive Metabolic Panel (06/26/2024 10:53 AM EST) Sodium 143 135 - 145 mmol/L [facility] Potassium 3.3 3.3 - 5.1 mmol/L [facility] Chloride 103 96 - 108 mmol/L [facility] Carbon Dioxide 30(H) 22 - 29 mmol/L [facility] Anion Gap 13 12 - 20 [facility] Urea Nitrogen (BUN) 14 9 - 16 mg/dL [facility] Creatinine, Serum 1.10 0.5 - 1.4 mg/dL [facility] Estimated Glomerular Filt Rate >60 [facility] Comment:Chronic Kidney Disea se: Estimated GFR < 60 mL/min/1.80c1Seiavs Kidney Disease: Estimated GFR < 15 mL/min/1.73m2 Glucose 106 60 - 115 mg/dL [facility] Calcium 10.9(H) 8.4 - 10.2 mg/dL [facility] Bilirubin, Total 0.5 0.0 - 1.0 mg/dL [facility] Aspartate Amino Transferase 29 5 - 37 U/L [facility] Alanine Aminotransferase 27 0 - 40 U/L [facility] Total Protein 8.1(H) 6.5 - 8.0 g/dL [facility] Albumin Level 3.9 3.5 - 5.0 g/dL [facility] Alkaline Phosphatase 96 39 - 117 U/L [facility] Blood Venous blood specimen / Unknown 06/26/2024 10:53 AM EST 06/26/2024 1:05 PM EST Yane Cisneros [employer] LAB BLOOD ORDERABLES Final Res ult Performing Organization Address [facility] [place]/ZIP Co de Phone Number [facility] [address] [place] [address] [phone] from Last 3 Months Insurance [employer] [facility] [employer] Care Teams Two Way Radio Technician Relationship Specialty Start Date End Date Yane Cisneros FNP [address] [place] [address] PCP - General Family Medicine 11/26/21
--- OUTSIDE RECORDS SUMMARY | 2024-07-26 13:47 | XMS_ITS | Encounter Summary ---
Author Organization [employer] Address [address] [facility] [address] [place] [address] Care Team Providers Care Fish Hatchery Laborer Name Role Phone Yane Cisneros Primary Care Provider [phone] Reason for Visit * Reason Onset Date Comments call back requested 07/22/2022 Encounter Details Date Type Department Care Team ([facility] st Contact Info) Description 07/22/2022 Telephone [facility] [address] [place] [address] Yane Cisneros FNP [address] [place], [place] [phone] call back requested Social History Tobacco Use Types Packs/Day Years [...] encounter Miscellaneous Notes * Telephone Encounter - Erika Gramajo RN - 07/22/2022 11:24 AM EST Call returned to [facility] Paola at ext [phone]. Paola states that pt is motivated to come to OT, has good emotional support but no reliable transportation. States pt has significant scrotal lymphydema andis not able to manage skin care to his feet and legs. States she ordered compression stockings for him but is unable to find a local supplier as they need to be custom made. 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 States OT is not appropriate for pt until pt has more support at home. Advised pt cancelled TP appt 03/18/22 and hasn't rescheduled, US ordered 01/26/22 not yet completed per review of chart. Advised RN will call pt to schedule appt and update pcp. T/C to pt who agrees to appt with pcp 07/29/22 at 3:15p for evaluation. * Telephone Encounter - Jenna Ibanez - 07/22/2022 10:27 AM EST Tc from paola mendoza from [facility] CORE Occupational therapy requesting to speak to Dr. Cisneros, Stateswould like to discuss lipedema management. Please contact at [phone] documented in this encounter Plan of Treatment Not on file documented as of this encounter Visit Diagnoses Not on filedocumented in this encounter Care Teams Fish Hatchery Laborer Relationship Specialty Start Date End Date Yane Cisneros FNP [address] [place] [address] PCP - General Family Medicine 11/26/21 documented as of this encounter
[2024-07-26 16:48] LABS: Alanine Aminotransferase 31 U/L (0-40); Albumin Level 3.9 g/dL (3.5-5.0); Alkaline Phosphatase 91 U/L (39-117); Anion Gap 16 (12-20); Aspartate Amino Transferase 28 U/L (5-37); Bilirubin Total 0.6 mg/dL (0.0-1.0); Blood Urea Nitrogen 17 mg/dL (9-16); Calcium 10.5 mg/dL (8.4-10.2); Carbon Dioxide 29 mmol/L (22-29); Chloride 99 mmol/L (96-108); Estimated Glomerular Filt Rate > 60; Glucose Random 91 mg/dL (60-115); Potassium 3.4 mmol/L (3.3-5.1); Sodium 141 mmol/L (135-145); Total Protein 8.2 g/dL (6.5-8.0)
[2024-07-26 16:53] LABS: Parathyroid Hormone Intact 171.4 pg/mL (8.7-77.1)
[2024-07-26 17:06] LABS: Vitamin D 25-OH Total 21.5 ng/mL (>30)
== END 2024-07-26 13:15 | disposition home or self-care (01) ==
LOC: HO.HHCL 13:14
PROVIDERS: Visit Provider Registered Nurse
DX: E83.52 Hypercalcemia (principal)
CPT/HCPCS: 36415; 80053; 82306; 83970

== ENCOUNTER 2024-09-16 10:47 | Outpatient (AMB) | payer MEDICAID, SELFPAY ==
--- NOTE | 2024-09-16 10:49 | A.OFFVIS_ITS ---
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 Blood work from June 2024 showed calcium elevated at 10.9, albumin of 3.9, corrected calcium would be 10.8. Blood work from July 2024 showed calcium elevated at 10.5, with albumin of 3.9, corrected calcium would be 10.4, concurrent vitamin-D level of 21.5 ng/mL and PTH elevated at 171.4. No kidney stones No fractures No family history of calcium problems, or kidney stones Not on any vitamin D or calcium supplements Milk: once in a week Cheese: 2-3 times a week Yogurt: not often Green leafy vegetables: not often HTN diagnosed at age 28 , has been on chlorthalidone 75 mg daily since then (48 plus 25) no history of stroke or sudden cardiac in the family He does have history of JOCELYN, doesnt use CPAP No stroke or or heart ache No blood clot No history of DM Never smoker Physical exam General: sitting comfortably in no acute distress HEENT: normocephalic/atraumatic, moist oral mucosa Neck: supple, symmetrical Cardiac: normal heart sounds Pulm: normal breath sounds B/L, no added breath sounds Abd: not distended, no tenderness Extremities: bilateral lymphedema noted with chronic venous stasis changes Neuro: AAO x3, Speech: normal, no facial droop, moving all 4 extremities Laboratory Tests 12/17/20 02/02/21 02/03/21 13:50 14:53 06:04 Creatinine Estimated GFR Calcium 9.9 9.0 D 8.5 Albumin 3.7 25-OH Vitamin D Total TSH PTH Intact 02/05/21 02/07/21 02/08/21 03:55 05:19 06:03 Creatinine Estimated GFR Calcium 9.0 8.5 8.5 Albumin 2.9 L D 25-OH Vitamin D Total TSH PTH Intact 05/10/23 06/26/24 07/26/24 11:11 10:53 13:16 Creatinine 1.10 1.05 Estimated GFR > 60 > 60 Calcium 11.1 H D 10.9 H 10.5 H Albumin 3.9 3.9 3.9 25-OH Vitamin D Total 21.5 L TSH 3.01 PTH Intact 171.4 H PFS Medical History (Updated 09/16/24 @ 12:05 by Hilary Zuñiga MD) Elevated parathyroid hormone Hypercalcemia HTN (hypertension) No known health problems Surgical History (Updated 09/16/24 @ 10:51 by ANKIT Jose) No pertinent past surgical history Family History (Updated 09/16/24 @ 10:51 by ANKIT Jose) Father No problems noted. Mother No problems noted. 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 Patient Tobacco Use Status: Never used Tobacco service: No Current occupational status: disabled Physical Exam Vital Signs: Last Vital Signs Pulse 105 H 09/16/24 10:53 BP 130/82 09/16/24 10:53 Pulse Ox 96 09/16/24 10:53 Oxygen Delivery Method Room Air 09/16/24 10:53 BMI result Body Mass Index 75.3 Assessment & Plan Assessment & Plan (1) Hypercalcemia: Code(s): E83.52 - Hypercalcemia Category: Medical Plan: 33-year-old male with past medical history significant for morbid obesity, lymphedema and hypertension coming in today for 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 Blood work from July 2024 showed calcium elevated at 10.5, with albumin of 3.9, corrected calcium would be 10.4, concurrent vitamin-D level of 21.5 ng/mL and PTH elevated at 171.4. He had prior normal calcium levels up until April 2023 when he was noted to have a calcium level of 11.1. He is on chlorthalidone since age 28 for hypertension. No history of kidney stones, no history of fractures. Normal kidney function. Given low vitamin-D level, could possibly have a component of secondary hyperparathyroidism, not yet on vitamin-D supplementation. He also has low nutritional intake of calcium. At this time I have asked him to initiate vitamin-D 1000 units daily, as well as 2-3 servings of calcium rich foods daily and repeat labs as well as do a 24 hour urine collection in 7 weeks. I am also stopping his chlorthalidone. We will see how much his calcium improves after stopping that. Most likely differential is primary hyperparathyroidism and If he continues to have hypercalcemia, given his age is less than 50, he would qualify for surgical criteria. But 1st I would like to reassess his calcium levels after stopping his chlorthalidone. I would also like to assess him for hypercalciuria to rule out FHH. Plan: -Stop chlorthalidone -Start atenolol 25 mg daily instead for BP control , check your BP at home every day for the next 2-3 weeks, talk to your primary care about blood pressure optimization and let them know about medication change -Start vitamin D 1000 units daily, prescription sent -Start taking 2-3 servings of calcium rich foods daily such as 2 % milk, 2% cottage cheese, yogurt , spinach, broccoli, kale, almonds -After you have done this for 7 weeks, do 24 hr urine collection plus - blood work the same morning as you hand in the urine collection -follow up in 9 weeks to discuss results (2) Elevated parathyroid hormone: Code(s): R79.89 - Other specified abnormal findings of blood chemistry Category: Medical Plan: See above (3) HTN (hypertension): Code(s): I10 - Essential (primary) hypertension Category: Medical Qualifiers: Hypertension type: primary hypertension Qualified Code(s): I10 - Essential (primary) hypertension Plan: Has a history of essential hypertension diagnosed at age 28 which is very early. Also has a history of JOCELYN. We will screen for primary hyperaldosteronism. Plan: -check BMP, plasma aldosterone concentration and plasma renin activity Plan I spent 45 minutes in reviewing the record, seeing the patient and documenting in the medical record. Orders: Orders Calcium 7 Weeks E83.52 - Hypercalcemia, I10 - Essential (primary) hypertension, R79.89 - Other specified abnormal findings of blood chemistry Calcium, Ionized 7 Weeks E83.52 - Hypercalcemia, I10 - Essential (primary) hypertension, R79.89 - Other specified abnormal findings of blood chemistry Phosphorus 7 Weeks E83.52 - Hypercalcemia, I10 - Essential (primary) hypertension, R79.89 - Other specified abnormal findings of blood chemistry Parathyroid Hormone Intact 7 Weeks E83.52 - Hypercalcemia, I10 - Essential (primary) hypertension, R79.89 - Other specified abnormal findings of blood chemistry Vitamin D 25-OH Total 7 Weeks E83.52 - Hypercalcemia, I10 - Essential (primary) hypertension, R79.89 - Other specified abnormal findings of blood chemistry Sodium, 24Hr Urine Group 7 Weeks E83.52 - Hypercalcemia, I10 - Essential (primary) hypertension, R79.89 - Other specified abnormal findings of blood chemistry Aldosterone 7 Weeks E83.52 - Hypercalcemia, I10 - Essential (primary) hypertension, R79.89 - Other specified abnormal findings of blood chemistry Renin 7 Weeks E83.52 - Hypercalcemia, I10 - Essential (primary) hypertension, R79.89 - Other specified abnormal findings of blood chemistry Basic Metabolic Panel 7 Weeks E83.52 - Hypercalcemia, I10 - Essential (primary) hypertension, R79.89 - Other specified abnormal findings of blood chemistry Albumin Level 7 Weeks E83.52 - Hypercalcemia, I10 - Essential (primary) hypertension, R79.89 - Other specified abnormal findings of blood chemistry Calcium, 24 Hr Ur 7 Weeks E83.52 - Hypercalcemia, I10 - Essential (primary) hypertension, R79.89 - Other specified abnormal findings of blood chemistry Creatinine, 24 Hr Group 7 Weeks E83.52 - Hypercalcemia, I10 - Essential (primary) hypertension, R79.89 - Other specified abnormal findings of blood chemistry Medications: New atenolol 25 mg PO DAILY 30 tabs 1RF cholecalciferol (vitamin D3) 25 mcg PO DAILY 3 months 90 caps 3RF Patient Instructions: Stop chlorthalidone Start atenolol 25 mg daily instead for BP control , check your BP at home every day for the next 2-3 weeks, talk to your primary care about blood pressure optimization and let them know about medication change Start vitamin D 1000 units daily, prescription sent Start taking 2-3 servings of calcium rich foods daily such as 2 % milk, 2% cottage cheese, yogurt , spinach, broccoli, kale, almonds After you have done this for 7 weeks, do 24 hr urine collection plus give blood work the same morning as you hand in the urine collection 24 hr urine collection instructions You have been asked to collect your urine for 24 hours to assess for calcium excretion. You must choose a 24 hour period of time when you will be home. The morning of the first day, DISCARD the FIRST morning void and then note the time. You will collect every single void from then on for 24 hours. For example, if you wake up at 6am and urinate, flush down that void. You will then collect every drop of urine all day and all night through 6am the following day. You will urinate one last time at 6am for the collection. The jug of urine must be kept in the refrigerator until you bring it to the lab. Coding Level of Care Code New Pt Level 4 (21366) Diagnoses Hypercalcemia E83.52 Elevated parathyroid hormone R79.89 Primary hypertension I10 Hypertension type: primary hypertension Time Spent (min) 45
[2024-09-16 10:53] VITALS: BP 130/82; PULSE 105; O2SAT 96; BMI 75.3
--- OUTSIDE RECORDS SUMMARY | 2024-09-16 12:13 | XMS_ITS | Clinical Summary ---
Author Organization [employer] Address [address] [facility] [address]t [place] [address] Care Team Providers Care Tour Conductor Name Role Phone Yane Cisneros MARCIANO Primary Care Provider [phone] Allergies No known active allergies Medications Blood Pressure Monitor kitIndications:P rimary hypertension Use to check BP twice weekly and when symptomatic 1 kit 3 Active olmesartan (BENIcar) 40 MG tablet TAKE 1 TABLET(40 MG) BY MOUTH AT BEDTIME 90 tablet 3 4 Active metFORMIN (Glucophage) 1000 MG tabletIndication s:Severe obesity (BMI >= 40) (CMS/HCC) TAKE ONE TABLET BY MOUTH EVRY MORNING WITH BREAKFAST AND ANOTHER TABLET WITH DINNER 180 tablet 1 4 Active amLODIPine (Norvasc) 5 MG tabletIndication s:Primary hypertension TAKE 1 TABLET(5 MG) BY MOUTH IN THE MORNING 90 tablet 3 4 Active chlorthalidone (Hygroton) 50 MG tablet TAKE 1 TABLET( 50 MG) BY MOUTH IN THE MORNING. TAKE IN COMBINATION WITH 25 MG DOSE FOR TOTAL OF 75 MG 90 tablet 3 4 Active chlorthalidone (Hygroton) 25 MG tablet TAKE 1 TABLET(25 MG) BY MOUTH IN THE MORNING( TAKE WITH 50 MG TABLET FOR TOTAL DAILY DOSE 75 MG) 90 tablet 3 5 Active Cholecalciferol (Vitamin D3) 25 MCG (1000 UT) chewable tablet Chew 1 tablet Once per day. 90 tablet 3 5 Active Tirzepatide-Weig ht Management (Zepbound) 5 MG/0.5ML solution auto-injector Inject 0.5 mL (5 mg) under the skin 1 (one) time per week. 2 mL 1 5 10/02/19 25 Active Active Problems Problem Noted Date Diagnosed Date Lymphedema of both lower extremities 09/18/2022 Assessment & Plan (01/23/2023 8:31 PM EDT): ?? Return to lymphedema clinic once stocking ordered/available ?? Reports has not heard regarding MARINE SAFETY OFFICER eval. Message previously sent to [facility] Forms team for follow up. Outgoing TC placed to [facility] clinic regarding further care, encouraged to call pt directly. Assessment & Plan (11/08/2022 8:04 AM EDT): ?? Return to lymphedema clinic once stocking ordered/available ?? Reports has not heard regarding MARINE SAFETY OFFICER eval. Message sent to [facility] Forms team for follow up. Assessment & Plan (09/18/2022 2:49 PM EDT): -Continue working with [facility] -DME script generated: Bilateral thigh high Juxtafit compression stockings, 40- 50 mmHg -OT requesting MARINE SAFETY OFFICER assistance for pt, although pt declines interest in MARINE SAFETY OFFICER. Reports able to complete independently. Will not initiate any further eval at this time. Lymphedema of scrotum 07/31/2022 Overview (09/18/2022): -[facility] eval Apr 2022: was found to have significant scrotal lymphedema, scrotal Elephantitis - Due to the severe nature of the scrotal lymphedema - surgical reconstruction is complex -Continue following with [facility] Assessment & Plan (10/10/2022 7:54 PM EDT): Referral for eval for MARINE SAFETY OFFICER services Assessment & Plan (09/18/2022 2:50 PM [...] 1000mg BID -Wegovy approval on 10/16/23. PA# [id number] to on 04/16/24 -Reviewed medication use, SE, [...] 1000mg BID -Wegovy approval on 10/16/23. PA# [id number] to on 04/16/24 -Reviewed medication use, SE, [...] 1000mg BID -Wegovy approval on 10/16/23. PA# [id number] to on 04/16/24 -Reviewed medication use, SE, [...] Encounters Date Type Department Care Team Description 08/30/2024 Population Health Risk Score [facility] () Department [address] [place] [phone] Provider, Population Health Generic 08/06/2024 Telephone [facility] [address] [place] [address] Yane Cisneros FNP TC: Labs and Endo referral 08/06/2024 Travel 07/24/2024 Orders Only [facility] MEDICINE [address] [place] [phone] Yane Cisneros FNP Hypercalcemia (Primary Dx) 07/08/2024 Refill [facility] [address] [place] [address] Yane Cisneros FNP 07/04/2024 Telephone [facility] MEDICINE [address] [place] [phone] Yane Cisneros FNP PA 06/26/2024 9:45 AM EST Office Visit [facility] MED[facility]INE [address] [place] [phone] Yane Cisneros FNP Severe obesity (BMI >= 40) (CMS/HCC) (Primary Dx); Primary hypertension; Encounter for immunization; Healthcare maintenance; Dietary counseling; Exercise counseling 06/26/2024 Travel 06/20/2024 Telephone [facility] [address] [place], [place] [phone] Shira Bran MA Chart Prep from Last 3 Months Immunizations Name Administration [...] 06/26/2024 9:57 AM EST Plan of Treatment Upcoming Encounters Date Type Department Care Team (Late st Contact Info) Description 10/23/2024 11:30 AM EDT Office Visit [facility] [address] [place] [address] Yane Cisneros, MARCIANO [address] [place], [place] [phone] Health Maintenance Due Date Last Done Comments [...] Procedure Name Priority Date/Time Associated Diagnosis Comments PTH, INTACT WITHOUT CALCIUM Routine 07/26/2024 1:16 PM EST Hypercalcemia VITAMIN D,25-OH,TOTAL,IA Routine 07/26/2024 1:16 PM EST Hypercalcemia COMPREHENSIVE METABOLIC PANEL Routine 07/26/2024 1:16 PM EST Hypercalcemia RPR (MONITOR) W/REFL TITER Routine 06/26/2024 10:58 [...] maintenance from Last 3 Months Results * (ABNORMAL) Vitamin D, 25-Hydroxy, Total, Immunoassay (07/26/2024 1:16 PM EST) Vitamin D 25-OH Total 21.5(L) >30 ng/mL [facility] Comment:Health Based Referen ce Values*< 20 ng/mL Tlxzgknfs50-91 ng/mL Insufficient> 30 ng/mL Sufficient*Zander CAMARGO. N Engl J Med. 2007;357:266-280Care must be taken in interpreting Vitamin D results fromdifferent laboratories and methodologies. Published datademonstrated that results from patients undergoinghemodialysis may show a negative bias when tested withvarious automated 25-OH vitamin D assays when compared toLC-MS/MS.When testing samples from patients whose predominant form ofVitamin D is Vitamin D2, such as patients receiving VitaminD2 supplementation, results that are subtherapeutic shouldbe confirmed with another method such as LC-MS/MS. Blood Venous blood specimen / Unknown 07/26/2024 1:16 PM EST 07/26/2024 4:15 PM EST us Yane Cisneros MESSAGE BROKER DEVELOPER LAB BLOOD ORDERABLES Final Res ult [facility] [address] [place] [phone] * (ABNORMAL) PTH, Intact Without Calcium (07/26/2024 1:16 PM EST) Parathyroid Hormone, Intact 171.4(H) 8.7 - 77.1 pg/mL [facility] Blood Venous blood specimen / Unknown 07/26/2024 1:16 PM EST 07/26/2024 4:15 PM EST us Yane Cisneros MESSAGE BROKER DEVELOPER LAB BLOOD ORDERABLES Final Res ult [facility] [address] [place] [address] [phone] * (ABNORMAL) Comprehensive Metabolic Panel (07/26/2024 1:16 PM EST) Only the most recent of2 resultswithin the time period is included. Sodium 141 135 - 145 mmol/L [facility] Potassium 3.4 3.3 - 5.1 mmol/L [facility] Chloride 99 96 - 108 mmol/L [facility] Carbon Dioxide 29 22 - 29 mmol/L [facility] Anion Gap 16 12 - 20 [facility] Urea Nitrogen (BUN) 17(H) 9 - 16 mg/dL [facility] Creatinine, Serum 1.05 0.5 - 1.4 mg/dL [facility] Estimated Glomerular Filt Rate >60 [facility] Comment:Chronic Kidney Disea se: Estimated GFR < 60 mL/min/1.84y8Dwjwjz Kidney Disease: Estimated GFR < 15 mL/min/1.73m2 Glucose 91 60 - 115 mg/dL [facility] Calcium 10.5(H) 8.4 - 10.2 mg/dL [facility] Bilirubin, Total 0.6 0.0 - 1.0 mg/dL [facility] Aspartate Amino Transferase 28 5 - 37 U/L [facility] Alanine Aminotransferase 31 0 - 40 U/L [facility] Total Protein 8.2(H) 6.5 - 8.0 g/dL [facility] Albumin Level 3.9 3.5 - 5.0 g/dL [facility] Alkaline Phosphatase 91 39 - 117 U/L [facility] Blood Venous blood specimen / Unknown 07/26/2024 1:16 PM EST 07/26/2024 4:15 PM EST Yane Samuelganesh [facility] LAB BLOOD ORDERABLES Final Res ult Performing Organization Address [facility] de Phone Number [facility] [address] [place] [phone] * Hepatitis C Viral RNA, Quantitative, Real-Time PCR (06/26/2024 10:58 AM EST) Pathologist [facility] Hepatitis C Viral Load <15 NOT DETECTED NOT DETECTED IU/mL [facility] HCV Log PCR <1.18 NOT DETECTED NOT DETECTED Log IU/mL [facility] Comment:For additional infor mation, please refer tohttp://education.[employer]/faq/KVL45h4(This link is being provided for informational/educational purposes only.)THIS TEST WAS PERFORMED AT:[facility] [address] [id number] DAILY MD Blood 06/26/2024 10:5 8 AM EST 06/26/2024 1:05 PM EST Yane Cisneros [facility] LAB BLOOD ORDERABLES Final Res ult Performing Organization Address [facility] Phone Number [facility] [address] [place] [phone] * RPR (Monitor) with Reflex to??Titer (06/26/2024 10:58 AM EST) Pathologist [facility] RPR (Monitor) w/Refl Titer NON-REACTI VE NON-REACT JENNIFER [facility] Comment:THIS TEST WAS PERFOR MED AT:[facility] [address] [id number] DAILY MD Rapid Plasma Reagin Ab Titer TNP [facility] Blood Venous blood specimen / Unknown 06/26/2024 10:58 AM EST 06/26/2024 1:05 PM EST Yane GIMENEZP LAB BLOOD ORDERABLES Final Res ult Performing Organization Address [facility] Co de Phone Number [facility] [address] [place] [phone] * TSH with Reflex to Free T4 (06/26/2024 10:53 AM EST) TSH reflex Free T4 3.01 0.32 - 4.0 uIU/mL [facility] Blood 06/26/2024 10:5 3 AM EST 06/26/2024 1:05 PM EST Yane Cisneros [facility] LAB BLOOD ORDERABLES Final Res ult Performing Organization Address [facility] de Phone Number [facility] [address] [place] [phone] * Albumin, Random Urine W/Creatinine (06/26/2024 10:53 AM EST) Creatinine, Urine 226.75 mg/dL [facility] Microalbumin Urine 24.0 mg/L [facility] Microalbum Creatinine Ratio Ur 10.5 <30 ug/mg cr [facility] Comment:Albumin/Creatinine R atio Reference Ranges: Normal: < 30 ug/mg creatinine Microalbuminuria: 30 - 300 ug/mg creatinineClinical Albuminuria: > 300 ug/mg creatinine Urine 06/26/2024 10:5 3 AM EST 06/26/2024 1:00 PM EST Yane Cisneros [facility] URINE ORDERABLES Final Res ult Performing Organization Address [facility] Co de Phone Number [facility] [address] [place] [phone] * (ABNORMAL) CBC auto differential (06/26/2024 10:53 AM EST) White Blood Count 7.2 4.8 - 10.8 X10*3/uL [facility] Red Blood Count 5.05 4.60 - 5.80 X10*6/uL [facility] Hemoglobin 14.7 14.0 - 18.0 g/dl [facility] Hematocrit 45.5 42.0 - 52.0 % [facility] Mean Corpuscular Volume 90.1 80.0 - 98.0 fL [facility] Mean Corpuscular Hemoglobin 29.1 27.0 - 33.0 pg [facility] Mean Corpuscular HGB Conc 32.3 31.0 - 36.0 g/dl [facility] Red Cell Distribution Width 14.8 11.0 - 16.0 % [facility] Platelet Count 348 160 - 400 X10*3/uL [facility] Mean Platelet Volume 9.6 9.4 - 12.4 fL [facility] Neutrophils Percent Auto 55.4 45 - 73 % [facility] Imm Gran Pct Auto 0.7(H) 0.0 - 0.4 % [facility] Lymphocytes Percent Auto 35.7 20 - 40 % [facility] Monocytes Percent Auto 7.0 2 - 11 % [facility] Eosinophils Percent Auto 0.6 0 - 4 % [facility] Basophils Percent Auto 0.6 0 - 2 % [facility] NRBC Pct Auto 0.0 0.0 - 0.2 /100WBC [facility] Neutrophils Absolute Auto 4.0 2.0 - 8.3 x10*3/uL [facility] Imm Gran Abs Auto 0.05(H) 0.00 - 0.03 X10*3/uL [facility] Lymphocytes Absolute Auto 2.6 1.2 - 4.9 X10*3/uL [facility] Monocytes Absolute Auto 0.5 0.1 - 1.2 X10*3/uL [facility] Eosinophils Absolute Auto 0.0 0.0 - 0.4 X10*3/uL [facility] Basophils Absolute Auto 0.0 0.0 - 0.2 X10*3/uL [facility] NRBC Abs Auto 0.000 0.0 - 0.012 X10*3/uL [facility] Blood Venous blood specimen / Unknown 06/26/2024 10:53 AM EST 06/26/2024 1:05 PM EST Yane Cisneros [facility] LAB BLOOD ORDERABLES Final Res ult [facility] [address] [place] [phone] * Chlamydia/N. Gonorrhoeae RNA, TMA, Urogenitial (06/26/2024 10:53 AM EST) CT PCR NOT DETECTED Not Detect. [facility] Comment:A not detected test result [...] psychologicalconsequences. NG PCR NOT DETECTED Not Detect. [facility] Comment:A not detected test result [...] AM EST 06/26/2024 1:00 PM EST Narrative [facility] - 06/26/2024 5:12 PM EST Urine [facility] MICROBIOLOGY - GENERAL ORD ERABLES Final Result Performing Organization Address [facility] Co de Phone Number [facility] [address] [place] [phone] * HIV-1/2 Antigen and Antibodies, Fourth Generation, with Reflexes (06/26/2024 10:53 AM EST) HIV AB/AG Nonreactive Nonreactive [facility] Comment:HIV-1 p24 Ag and/or HIV-1/HIV-2 Ab not detected.A test result that is nonreactive does not exclude thepossibility of exposure to or infection with HIV-1 and/orHIV-2. Nonreactive results in this assay for individualswith prior exposure to HIV-1 and/or HIV-2 may be due toantigen and antibody levels that are below the limit ofdetection of this assay.The [employer]and HIV Ag/Ab Combo assay result andsupplemental assay results should be interpreted inconjunction with the patient's clinical presentation,history and other laboratory results. If the results areinconsistent with clinical evidence, additional testing issuggested to confirm the result. Blood Venous blood specimen / Unknown 06/26/2024 10:53 AM EST 06/26/2024 1:05 PM EST [facility]ane [facility] BLOOD ORDERABLES Final Res ult Performing Organization Address City/[facility]/ZIP Co de Phone Number [facility] [address] [place] [phone] * Hemoglobin A1c (06/26/2024 10:53 AM EST) Hemoglobin A1c 5.4 <6.0 % [facility] Comment:Hemoglobin A1C Refer ence Range Adults: 4.8 - 6.0 % Non diabetic: < 6.0 % Goal: < 7.0 %Additional Action Suggested: > 8.0 %Note: Hemoglobin A1c results are invalid for patients with abnormal amounts of HbF. Blood transfusions may impact the HbA1c concentration in the patient sample. Estimated Average Glucose 108 mg/dL [facility] Comment:eAG = Estimated ave rage glucose which is %A1C expressed asaverage glucose, using the formula of the Y2J-LhlvvveQrfgkwy Glucose study (ADAG), Diabetes Care, Vol.31,#8,Jan. 2007 Blood Venous blood specimen / Unknown 06/26/2024 10:53 AM EST 06/26/2024 1:05 PM EST us Yane Cisneros MESSAGE BROKER DEVELOPER LAB BLOOD ORDERABLES Final Res ult [facility] [address] [place] [phone] * (ABNORMAL) Lipid Panel, Standard (06/26/2024 10:53 AM EST) Triglycerides 100 <150 mg/dL [facility] Comment:Desirable Triglyceri de: less than 150 mg/dLBorderline High Triglyceride 150-199 mg/dLHigh Triglyceride: 200-499 mg/dLVery High Triglyceride: greater than or equal to 5OO mg/dL Cholesterol 181 <200 mg/dL [facility] Comment:Desirable Cholestero l: less than 200 mg/dLBorderline High Cholesterol: 200-239 mg/dLHigh Cholesterol: greater than 239 mg/dL LDL Cholesterol Calculated 122(H) <100 mg/dL [facility] Comment:Desirable LDL: less than 100 mg/dLNear Optimal/Above Optimal LDL: 110- 129 mg/dLBorderline High LDL: 130-159 mg/dLHigh LDL: 160-189 mg/dLVery High LDL: greater than or equal to 190 mg/dL HDL Cholesterol 39(L) >40 mg/dL [facility] Comment:Desirable HDL: great er than 40 mg/dL Note: This HDL assay may give artificially low results in patients with liver disease. Blood Venous blood specimen / Unknown 06/26/2024 10:53 AM EST 06/26/2024 1:05 PM EST us Yane TARIQ LAB BLOOD ORDERABLES Final Res ult [facility] [address] [place], [place] [phone] from Last 3 Months Insurance [facility] Care Teams Tour Conductor Relationship Specialty Start Date End Date Yane Cisneros FNP [address] [place] [address] PCP - General Family Medicine 11/26/21
--- OUTSIDE RECORDS SUMMARY | 2024-09-16 12:13 | XMS_ITS | Encounter Summary ---
Author Organization [employer] Address [address] [place] [address] Care Team Providers Care Environmental Program Manager Name Role Phone Blayne Yane TARIQ Primary Care Provider [phone] Encounter Details Date Type Department Care Team (Late st Contact Info) Description 07/24/2024 Orders Only [facility] [address] [place] [address] Yane Cisneros FNP [address] [place], [place] [phone] Hypercalcemia (Primary Dx) Social History Tobacco Use [...] as of this encounter Plan of Treatment Upcoming Encounters Date Type Department Care Team (Late st Contact Info) Description 10/23/2024 11:30 AM EDT Office Visit [facility] [address] [place] [address] Yane Cisneros FNP [address] [place] [address] Scheduled Orders Name Type Priority Associated Diagnoses Orde r Schedule Protein, Total and Protein??Electrophoresis Lab Routine Hypercalcemia Expected: 07/24/2024 (Approximate), Expires: 07/24/2025 documented as of this encounter Procedures Procedure Name Priority Date/Time Associated Diagnosis Comments VITAMIN D,25-OH,TOTAL,IA Routine 07/26/2024 1:16 PM EST Hypercalcemia PTH, INTACT WITHOUT CALCIUM Routine 07/26/2024 1:16 PM EST Hypercalcemia COMPREHENSIVE METABOLIC PANEL Routine 07/26/2024 1:16 PM EST Hypercalcemia documented in this encounter Results * (ABNORMAL) PTH, Intact Without Calcium (07/26/2024 1:16 PM EST) Parathyroid Hormone, Intact 171.4(H) 8.7 - 77.1 pg/mL [facility] Blood Venous blood specimen / Unknown 07/26/2024 1:16 PM EST 07/26/2024 4:15 PM EST Yane TARIQ LAB BLOOD ORDERABLES Final Res ult Performing Organization Address [facility] Co de Phone Number [facility] [address] [place] [address] [phone] * (ABNORMAL) Vitamin D, 25-Hydroxy, Total, Immunoassay (07/26/2024 1:16 PM EST) Vitamin D 25-OH Total 21.5(L) >30 ng/mL [facility] Comment:Health Based Referen ce Values*< 20 ng/mL Okvqbqnth34-18 ng/mL Insufficient> 30 ng/mL Sufficient*Zander CAMARGO. N [...] PM EST 07/26/2024 4:15 PM EST Yane Cisneros [facility] BLOOD ORDERABLES Final Res ult Performing Organization Address [facility] Co de Phone Number [facility] [address] [place] [address] [phone] * (ABNORMAL) Comprehensive Metabolic Panel (07/26/2024 1:16 PM EST) Sodium 141 135 - 145 mmol/L [facility] Potassium 3.4 3.3 - 5.1 mmol/L [facility] Chloride 99 96 - 108 mmol/L [facility] Carbon Dioxide 29 22 - 29 mmol/L [facility] Anion Gap 16 12 - 20 [facility] Urea Nitrogen (BUN) 17(H) 9 - 16 mg/dL [facility] Creatinine, Serum 1.05 0.5 - 1.4 mg/dL [facility] Estimated Glomerular Filt Rate >60 [facility] Comment:Chronic Kidney Disea se: Estimated GFR < 60 mL/min/1.57u2Guhwny Kidney Disease: Estimated GFR < 15 mL/min/1.73m2 Glucose 91 60 - 115 mg/dL [facility] Calcium 10.5(H) 8.4 - 10.2 mg/dL [facility] Bilirubin, Total 0.6 0.0 - 1.0 mg/dL [facility] Aspartate Amino Transferase 28 5 - 37 U/L [facility] Alanine Aminotransferase 31 0 - 40 U/L [facility] Total Protein 8.2(H) 6.5 - 8.0 g/dL [facility] Albumin Level 3.9 3.5 - 5.0 g/dL [facility] Alkaline Phosphatase 91 39 - 117 U/L [facility] Blood Venous blood specimen / Unknown 07/26/2024 1:16 PM EST 07/26/2024 4:15 PM EST us Yane TARIQ LAB BLOOD ORDERABLES Final Res ult [facility] [address] [place] [phone] documented in this encounter Visit Diagnoses Diagnosis Hypercalcemia- Primary documented in this encounter Additional Health Concerns Assessment Noted Time PHQ-9 Depression Total Score: 6 11/22/19 24 11:50 AM EDT documented as of this encounter Care Teams Environmental Program Manager Relationship Specialty Start Date End Date Yane Cisneros FNP [address] [place] [address] PCP - General Family Medicine 11/26/21 documented as of this encounter
--- OUTSIDE RECORDS SUMMARY | 2024-09-16 12:13 | XMS_ITS | Encounter Summary ---
Author Organization [employer] Address [address] [place] [address] [address] [place] [address] Care Team Providers Care Seed Production Field Supervisor Name Role Phone Yane Cisneros Primary Care Provider [phone] Encounter Details Date Type Department Care Team (Late Contact Info) Description 09/19/[address] [facility] MED[facility]INE [address] [place] [phone] Yane Cisneros FNP [address] [place], [place] [phone] Social History Tobacco Use Types Packs/Day Years [...] In the last 10 days, have roland u been in contact with someone who was confirmed or suspected to have Coronavirus/COVID-19? No / Unsure 09/12/2022 11:14 AM EDT documented as of this encounter Plan of Treatment Upcoming Encounters Date Type Department Care Team (Late Contact Info) Description 10/23/2024 11:30 AM EDT Office Visit [facility] [address] [place] [phone] Yane Cisneros FNP [address] [place], [place] [phone] documented as of this encounter Visit Diagnoses Not on filedocumented in this encounter Care Teams Seed Production Field Supervisor Relationship Specialty Start Date End Date Yane Cisneros FNP [address] [place] [address] PCP - General Family Medicine 11/26/21 documented as of this encounter
--- OUTSIDE RECORDS SUMMARY | 2024-09-16 12:13 | XMS_ITS | Encounter Summary ---
Author Organization [employer] Address [address] [place] [address] [address] [place] [address] Care Team Providers Care Supervisor Shipfitters Name Role Phone Yane Cisneros Primary Care Provider [phone] Reason for Visit * Reason Onset Date Comments FYI 01/16/2023 Encounter Details Date Type Department Care Team (Late st Contact Info) Description 01/16/2023 Telephone [facility] [address] [place] [address] Yane Cisneros FNP [address] [place], [place] [phone] FYI Social History Tobacco Use Types Packs/Day [...] - 01/16/2023 3:54 PM EDT Tc from [facility] would like to inform PCP that they faxed over a form with pt information for PCP to review. Advised will forward message as a FYI. * Telephone Encounter - Juana Jimi - 01/16/2023 2:03 PM EDT Tc from [facility] returning PCP call. Please contact [facility] at [phone] documented in this encounter Plan of Treatment Upcoming Encounters Date Type Department Care Team (Late st Contact Info) Description 10/23/2024 11:30 AM EDT Office Visit [facility] [address] [place] [address] Yane Cisneros FNP [address] [place] [address] documented as of this encounter Visit Diagnoses Not on filedocumented in this encounter Additional Health Concerns Assessment Noted Time PHQ-9 Depression Total Score: 2 11/08/19 23 3:55 PM EDT documented as of this encounter Care Teams Supervisor Shipfitters Relationship Specialty Start Date End Date Yane Cisneros FNP [address] [place] [address] PCP - General Family Medicine 11/26/21 documented as of this encounter
== END 2024-09-16 11:43 | disposition home or self-care (01) ==
LOC: HO.ENCR 10:48
PROVIDERS: PCP Registered Nurse; Visit Provider Student in an Organized Health Care Education/Training Program
DX: E83.52 Hypercalcemia (principal); R79.89 Other specified abnormal findings of blood chemistry; I10 Essential (primary) hypertension
CPT/HCPCS: 99204

== ENCOUNTER → 2024-09-16 10:47 | Outpatient (BNVA) | payer MEDICAID, SELFPAY | PROVIDERS: PCP Registered Nurse; Visit Provider Student in an Organized Health Care Education/Training Program | DX: E83.52 Hypercalcemia (principal); R79.89 Other specified abnormal findings of blood chemistry; I10 Essential (primary) hypertension | CPT/HCPCS: 99202 ==

== ENCOUNTER 2024-11-12 10:39 | Outpatient (REF) | payer MEDICAID, SELFPAY ==
--- OUTSIDE RECORDS SUMMARY | 2024-11-12 11:27 | XMS_ITS | Encounter Summary ---
Author Organization [employer] Address [address] [place] [address] [address] [place] [address] Care Team Providers Care Body Care Manager Name Role Phone Yane Cisneros Primary Care Provider [phone] Encounter Details Date Type Department Care Team (Late Contact Info) Description 09/19/2022 Abstract [facility] [address] [place] [phone] Yane Cisneros FNP [address] [place], [place] [phone] Social History Tobacco Use Types Packs/Day Years [...] Department Care Team (Late Contact Info) Description 01/29/2025 10:30 AM EDT Office Visit [facility] [address] [place] [phone] Yane Cisneros FNP [address] [place], [place] [phone] documented as of this encounter Visit Diagnoses Not on filedocumented in this encounter Care Teams Body Care Manager Relationship Specialty Start Date End Date Yane Cisneros FNP [address] [place] [address] PCP - General Family Medicine 11/26/21 documented as of this encounter
[2024-11-12 11:28] LABS: Total Volume 24 Hour Urine 1425 mL
[2024-11-12 11:54] LABS: Creatinine, 24Hr Urine 3.1 G/Day (1.0-2.0); Creatinine, mg/dL 215.92; Creatinine, mg/dL 216.69; Sodium 24 Hr Urine 260.8 mmol/Day (40-220)
[2024-11-12 11:58] LABS: Anion Gap 11 (12-20); Blood Urea Nitrogen 13 mg/dL (9-16); Calcium 10.2 mg/dL (8.4-10.2); Carbon Dioxide 28 mmol/L (22-29); Chloride 106 mmol/L (96-108); Estimated Glomerular Filt Rate > 60; Glucose Random 86 mg/dL (60-115); Phosphorus 2.7 mg/dL (2.7-4.5); Potassium 3.8 mmol/L (3.3-5.1); Sodium 141 mmol/L (135-145)
[2024-11-12 11:59] LABS: Parathyroid Hormone Intact 127.6 pg/mL (8.7-77.1)
[2024-11-12 12:18] LABS: Vitamin D 25-OH Total 30.3 ng/mL (>30)
[2024-11-13 21:04] LABS: Calcium, 24 Hr Urine 247 mg/24 h; Calcium/Creatinine Ratio 84 mg/g creat (30-210); Creatinine 24Hr Urine 2.95 g/24 h (0.50-2.15)
[2024-11-14 15:44] LABS: Calcium, Ionized 5.7 mg/dL (4.7-5.5)
[2024-11-16 09:23] LABS: Renin 0.07 ng/mL/h (0.25-5.82)
== END 2024-11-12 10:40 | disposition home or self-care (01) ==
LOC: HO.LAB 10:39
PROVIDERS: PCP Registered Nurse; Visit Provider Student in an Organized Health Care Education/Training Program
DX: I10 Essential (primary) hypertension (principal); E83.52 Hypercalcemia; R79.89 Other specified abnormal findings of blood chemistry
CPT/HCPCS: 36415; 80048; 82040; 82088; 82306; 82330; 82340; 82570; 83970; 84100; 84244; 84300

== ENCOUNTER 2024-11-18 10:25 | Outpatient (AMB) | payer MEDICAID, SELFPAY ==
--- NOTE | 2024-11-18 10:32 | MHC.OFFVIS ---
Vital Signs 11/18/24 10:33 Height 6 ft Weight 561 lb 11.805 oz BMI 76.2 BP 137/82 Blood Pressure Location Lt brachial Position Sitting Pulse 78 Pulse Source Pulse Oximeter Pulse Oximetry (%) 95 Oxygen Delivery Method Room Air Intake Visit Reasons: Elevated PTH/hypercalcemia Intake Note: Patient present today for Elevated PTH/hypercalcemia office visit. Radiology Specialist Required: No Accompanied by: Self / Same As Patient Allergies No Known Allergies Allergy (Verified 11/18/24 10:36) Medication List - Last Reconciled 11/18/24 by Hilary Zuñiga MD amlodipine 5 mg PO DAILY atenolol 25 mg PO DAILY cholecalciferol (vitamin D3) 25 mcg PO DAILY 3 months olmesartan 40 mg PO DAILY tirzepatide (weight loss) (Zepbound) mg subcut HPI Comments Details: 33-year-old male coming in today for follow up of PTH mediated hypercalcemia. HPI Blood work from June 2024 showed calcium elevated at 10.9, albumin of 3.9, corrected calcium would be 10.8. Blood work from July 2024 showed calcium elevated at 10.5, with albumin of 3.9, corrected calcium would be 10.4, concurrent vitamin-D level of 21.5 ng/mL and PTH elevated at 171.4. No kidney stones No fractures No family history of calcium problems, or kidney stones Not on any vitamin D or calcium supplements Milk: once in a week Cheese: 2-3 times a week Yogurt: not often Green leafy vegetables: not often Interval history Blood work from October 2024 showed vitamin-D has improved to 30.3, calcium remains elevated with a ionized calcium at 5.7, total calcium of 10.2, with albumin of 4, normal kidney function, PTH elevated at 127.6. 24 hour urine calcium level of 247, with a calcium creatinine ratio of 84, this is on the lower side especially given his 24 hour urine creatinine was elevated so if that was normal, his calcium would even be lower. While his fractional excretion of calcium is coming out to be 0.007 which is less than 0.01, suspicion of FHH, however he is still has poor nutritional intake of calcium, and says that he has not really been following the instructions of incorporating more calcium in diet. I suspect the urine calcium is low because of that. Hypertension HTN diagnosed at age 28 , has been on chlorthalidone 75 mg daily since then (50 plus 25) , also on amlodipine 5 mg daily and olmesartan 30 mg daily no history of stroke or sudden cardiac in the family He does have history of JOCELYN, doesnt use CPAP No stroke or or heart ache No blood clot No history of DM Never smoker Interval history Stopped chlorthalidone August 2024 Current blood pressure regimen amlodipine 5 mg daily, olmesartan 30 mg daily, atenolol 25 mg daily Blood pressure well controlled today Blood work done in October 2024 showed renin was very suppressed at 0.07, however aldosterone was not super elevated at 6, no hypokalemia, kidney function worse normal, 24 hour urine evaluation showed high sodium level of 260 however the creatinine was also high, still that is sodium is very high Physical exam General: sitting comfortably in no acute distress HEENT: normocephalic/atraumatic, moist oral mucosa Neck: supple, symmetrical Cardiac: normal heart sounds Pulm: normal breath sounds B/L, no added breath sounds Abd: not distended, no tenderness Extremities: bilateral lymphedema noted with chronic venous stasis changes Neuro: AAO x3, Speech: normal, no facial droop, moving all 4 extremities Laboratory Tests 12/17/20 02/02/21 02/03/21 13:50 14:53 06:04 Creatinine Estimated GFR Calcium 9.9 9.0 D 8.5 Albumin 3.7 25-OH Vitamin D Total TSH PTH Intact 02/05/21 02/07/21 02/08/21 03:55 05:19 06:03 Creatinine Estimated GFR Calcium 9.0 8.5 8.5 Albumin 2.9 L D 25-OH Vitamin D Total TSH PTH Intact 05/10/23 06/26/24 07/26/24 11:11 10:53 13:16 Creatinine 1.10 1.05 Estimated GFR > 60 > 60 Calcium 11.1 H D 10.9 H 10.5 H Albumin 3.9 3.9 3.9 25-OH Vitamin D Total 21.5 L TSH 3.01 PTH Intact 171.4 H Laboratory Tests 11/12/24 11/12/24 08:00 11:06 Sodium 141 Potassium 3.8 Estimated GFR > 60 Calcium 10.2 Ionized Calcium 5.7 H Phosphorus 2.7 Albumin 4.0 Renin 0.07 L Aldosterone 6 25-OH Vitamin D Total 30.3 PTH Intact 127.6 H Ur 24 Hour Volume 1425 Ur Creatinine mg/dL 215.92 Ur Creatinine 24 Hour 3.1 H Ur Sodium 24 Hour 260.8 H Ur Calcium 24 Hr 247 Calcium/Creat 24 Hr 84 PFSH Medical History (Updated 09/16/24 @ 12:05 by Hilary Zuñiga MD) Elevated parathyroid hormone Hypercalcemia HTN (hypertension) No known health problems Surgical History (Updated 09/16/24 @ 10:51 by ANKIT Jose) No pertinent past surgical history Family History (Updated 09/16/24 @ 10:51 by ANKIT Jose) Father No problems noted. Mother No problems noted. 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 Blood work from July 2024 showed calcium elevated at 10.5, with albumin of 3.9, corrected calcium would be 10.4, concurrent vitamin-D level of 21.5 ng/mL and PTH elevated at 171.4. He had prior normal calcium levels up until April 2023 when he was noted to have a calcium level of 11.1. He is on chlorthalidone since age 28 for hypertension. No history of kidney stones, no history of fractures. Normal kidney function. Stopped chlorthalidone at last visit in August 2024. Blood work from October 2024 showed vitamin-D has improved to 30.3, calcium remains elevated with a ionized calcium at 5.7, total calcium of 10.2, with albumin of 4, normal kidney function, PTH elevated at 127.6. 24 hour urine calcium level of 247, with a calcium creatinine ratio of 84, this is on the lower side especially given his 24 hour urine creatinine was elevated so if that was normal, his calcium would even be lower. While his fractional excretion of calcium is coming out to be 0.007 which is less than 0.01, suspicion of FHH, however he is still has poor nutritional intake of calcium, and says that he has not really been following the instructions of incorporating more calcium in diet. I suspect the urine calcium is low because of that. Regardless with the improved vitamin-D , calcium and PTH remain elevated consistent with either primary hyperparathyroidism or FHH. At this point I would like him to continue vitamin-D 1000 units daily. We will obtain bone density and renal ultrasound. Kidney function is okay. Given that he is less than 50 years old he would meet surgical criteria. I would also in a few weeks plan to repeat his 24 hour urine calcium levels once he is doing better with the calcium in diet to make sure that his calcium levels come up if not, he would benefit from genetic evaluation to rule out FHH. Especially given his young age even if he has primary hyperparathyroidism we should do genetic testing. After I have obtained complete testing, we will plan to refer him to Dr. Merle Graham at [facility] for surgical evaluation. Plan: -ordered renal ultrasound -ordered bone density scan including forearm -continue vitamin-D 1000 units daily -continue trying to incorporate 2-3 servings of calcium rich foods daily -repeat blood work in 6 weeks prior to follow up in 8 weeks -at that point at follow up visit we will plan to order repeat 24 hour urine calcium levels depending on his calcium intake in diet -consider genetics referral (2) Elevated parathyroid hormone: Code(s): R79.89 - Other specified abnormal findings of blood chemistry Category: Medical Plan: See above (3) HTN (hypertension): Code(s): I10 - Essential (primary) hypertension Category: Medical Qualifiers: Hypertension type: primary hypertension Qualified Code(s): I10 - Essential (primary) hypertension Plan: Has a history of essential hypertension diagnosed at age 28 which is very early. Also has a history of JOCELYN. Plus ethnicity has higher prevalence of primary hyperaldosteronism. Stopped chlorthalidone August 2024 Current blood pressure regimen amlodipine 5 mg daily, olmesartan 30 mg daily, atenolol 25 mg daily Blood pressure well controlled today Blood work done in October 2024 showed renin was very suppressed at 0.07, however aldosterone was not super elevated at 6, no hypokalemia, kidney function worse normal, 24 hour urine evaluation showed high sodium level of 260 however the creatinine was also high, still that is sodium is very high Given that he is on an ARB, and despite that his renin is quite suppressed, I am still suspicious about primary hyperaldosteronism. I might repeat testing in a few weeks. Right now is aldosterone is not super elevated. He does have a high salt intake, and I have asked him to reduce his salt intake. Plan: -reduce salt intake -plan to repeat aldosterone and renin levels in a few weeks followed by confirmation testing Plan I spent 30 minutes in reviewing the record, seeing the patient and documenting in the medical record. Orders: Orders Albumin Level 6 Weeks E83.52 - Hypercalcemia, R79.89 - Other specified abnormal findings of blood chemistry US renal BI Today E83.52 - Hypercalcemia, R79.89 - Other specified abnormal findings of blood chemistry Phosphorus 6 Weeks E83.52 - Hypercalcemia, R79.89 - Other specified abnormal findings of blood chemistry Creatinine 6 Weeks E83.52 - Hypercalcemia, R79.89 - Other specified abnormal findings of blood chemistry Renin 6 Weeks I10 - Essential (primary) hypertension Calcium 6 Weeks E83.52 - Hypercalcemia, R79.89 - Other specified abnormal findings of blood chemistry XR DEXA appendicular skeleton Today E83.52 - Hypercalcemia, R79.89 - Other specified abnormal findings of blood chemistry Calcium, Ionized 6 Weeks E83.52 - Hypercalcemia, R79.89 - Other specified abnormal findings of blood chemistry Vitamin D 25-OH Total 6 Weeks E83.52 - Hypercalcemia, R79.89 - Other specified abnormal findings of blood chemistry Aldosterone 6 Weeks I10 - Essential (primary) hypertension Basic Metabolic Panel 6 Weeks I10 - Essential (primary) hypertension Patient Instructions: Continue vitamin D 1000 units daily 2-3 servings of calcium rich foods daily such as 2 % milk, 2% cottage cheese, yogurt , spinach, broccoli, kale, almonds Low salt intake limit to 1 g daily Do bone density scan including wrist Do ultrasound of the kidneys Repeat blood work in 6 weeks Coding Level of Care Code Est Pt Level 4 (24211) Diagnoses Hypercalcemia E83.52 Elevated parathyroid hormone R79.89 Primary hypertension I10 Hypertension type: primary hypertension Time Spent (min) 30
[2024-11-18 10:33] VITALS: BP 137/82; PULSE 78; O2SAT 95; BMI 76.2
--- OUTSIDE RECORDS SUMMARY | 2024-11-18 11:28 | XMS_ITS | Encounter Summary ---
Author Organization [employer] Address [address] [place] [address] [address] [place] [address] Care Team Providers Care Website Admin Name Role Phone Yane Cisneros Primary Care Provider [phone] Encounter Details Date Type Department Care Team (Late Contact Info) Description 09/19/2022 Abstract [facility] [address] [place] [address] Yane Cisneros FNP [address] [place], [place] [phone] Social History Tobacco Use Types Packs/Day Years [...] Description 01/29/2025 10:30 AM EDT Office Visit [facility] [address] [place] [phone] Yane Cisneros FNP [address] [place], [place] [phone] documented as of this encounter Visit Diagnoses Not on filedocumented in this encounter Care Teams Website Admin Relationship Specialty Start Date End Date Yane Cisneros FNP [address] [place] [address] PCP - General Family Medicine 11/26/21 documented as of this encounter
== END 2024-11-18 10:58 | disposition home or self-care (01) ==
LOC: HO.ENCR 10:26
PROVIDERS: PCP Registered Nurse; Visit Provider Student in an Organized Health Care Education/Training Program
DX: E83.52 Hypercalcemia (principal); R79.89 Other specified abnormal findings of blood chemistry; I10 Essential (primary) hypertension
CPT/HCPCS: 99214

== ENCOUNTER → 2024-11-18 10:25 | Outpatient (BNVA) | payer MEDICAID, SELFPAY | PROVIDERS: PCP Registered Nurse; Visit Provider Student in an Organized Health Care Education/Training Program | DX: I10 Essential (primary) hypertension (principal); R79.89 Other specified abnormal findings of blood chemistry; E83.52 Hypercalcemia | CPT/HCPCS: 99212 ==

== ENCOUNTER 2024-12-12 13:19 | Outpatient (REF) | payer MEDICAID, SELFPAY ==
--- NOTE | ~2024-12-12 | US_ITS ---
EXAMINATION: US KIDNEY BILATERAL HISTORY: R79.89 - Other specified abnormal findings of blood chemistry TECHNIQUE: Real-time grayscale ultrasound imaging of the kidneys was performed and images were reviewed. COMPARISON: There are no prior studies available for comparison. FINDINGS: The examination is limited by patient body habitus. Right kidney: The right kidney measures 11.5 x 6.2 x 6.2 cm. Renal parenchymal echotexture and thickness are normal. There are no masses. There is no hydronephrosis or renal calculi. Left Kidney: The left kidney measures 13.3 x 7.0 x 5.0 cm. Renal parenchymal echotexture and thickness are normal. There are no masses. There is no hydronephrosis or renal calculi. US/US renal BI IMPRESSION: Unremarkable renal ultrasound. Electronically signed by: Rick Bell MD 12/12/2024 02:02 PM EDT
--- OUTSIDE RECORDS SUMMARY | 2024-12-12 16:04 | XMS_ITS | Encounter Summary ---
Author Organization [employer] Address [address] [place] [address] [address] [place] [address] Care Team Providers Care Information And Data Architect Analyst Name Role Phone Yane Cisneros Primary Care Provider [phone] Encounter Details Date Type Department Care Team (Late Contact Info) Description 09/19/2022 Abstract [facility] [address] [place] [address] Yane Cisneros FNP [address] [place], [place] [phone] Social History Tobacco Use Types Packs/Day Years [...] Description 01/29/2025 10:30 AM EDT Office Visit [facility] [address] [place] [address] Yane Cisneros FNP [address] [place], [place] [phone] documented as of this encounter Visit Diagnoses Not on filedocumented in this encounter Care Teams Information And Data Architect Analyst Relationship Specialty Start Date End Date Yane Cisneros FNP [address] [place] [address] PCP - General Family Medicine 11/26/21 documented as of this encounter
== END 2024-12-12 13:20 | disposition home or self-care (01) ==
LOC: HO.US 13:19
PROVIDERS: PCP Registered Nurse; Visit Provider Student in an Organized Health Care Education/Training Program
DX: R79.89 Other specified abnormal findings of blood chemistry (principal); E83.52 Hypercalcemia
CPT/HCPCS: 76775

== ENCOUNTER → 2024-12-12 13:24 | Outpatient (BNV) | payer MEDICAID, SELFPAY | PROVIDERS: PCP Registered Nurse; Visit Provider Radiology Diagnostic Radiology | DX: R79.89 Other specified abnormal findings of blood chemistry (principal) | CPT/HCPCS: 76775 ==

== ENCOUNTER 2025-03-17 09:51 | Outpatient (AMB) | payer MEDICAID, SELFPAY ==
--- NOTE | 2025-03-17 09:59 | A.OFFVIS_ITS ---
Vital Signs 03/17/25 10:00 Height 6 ft Weight 563 lb 8.024 oz BMI 76.4 BP 138/92 H Blood Pressure Location Lt radial Position Sitting Pulse 76 Pulse Source Pulse Oximeter Pulse Oximetry (%) 97 Oxygen Delivery Method Room Air Intake Visit Reasons: elevated PTH/ hypercalcemia Intake Note: Patient present today for elevated PTH and hypercalcemia office visit. Fire Investigation Manager Required: No Accompanied by: Self / Same As Patient Allergies No Known Allergies Allergy (Verified 03/17/25 10:00) Medication List - Last Reconciled 03/17/25 by Hilary Zuñiga MD amlodipine 5 mg PO DAILY atenolol 25 mg PO DAILY cholecalciferol (vitamin D3) 25 mcg PO DAILY 3 months olmesartan 40 mg PO DAILY tirzepatide (weight loss) (Zepbound) mg subcut HPI Comments Details: 34-year-old male coming in today for follow up of PTH mediated hypercalcemia. PTH mediated hypercalcemia HPI Blood work from June 2024 showed calcium elevated at 10.9, albumin of 3.9, corrected calcium would be 10.8. Blood work from July 2024 showed calcium elevated at 10.5, with albumin of 3.9, corrected calcium would be 10.4, concurrent vitamin-D level of 21.5 ng/mL and PTH elevated at 171.4. No kidney stones No fractures No family history of calcium problems, or kidney stones Not on any vitamin D or calcium supplements Milk: once in a week Cheese: 2-3 times a week Yogurt: not often Green leafy vegetables: not often Blood work from October 2024 showed vitamin-D has improved to 30.3, calcium remains elevated with a ionized calcium at 5.7, total calcium of 10.2, with albumin of 4, normal kidney function, PTH elevated at 127.6. 24 hour urine calcium level of 247, with a calcium creatinine ratio of 84, this is on the lower side especially given his 24 hour urine creatinine was elevated so if that was normal, his calcium would even be lower. While his fractional excretion of calcium is coming out to be 0.007 which is less than 0.01, suspicion of FHH, however he is still has poor nutritional intake of calcium, and says that he has not really been following the instructions of incorporating more calcium in diet. I suspect the urine calcium is low because of that. Plus he has had normal calcium levels back in 2020 Interval history 6/25: Ultrasound kidney did not show any kidney stones Bone density could not be done as patient is above the weight limit for DEXA scans at both our hospital and also checked at nearby outside hospital weight limits yogurt: 2 servings daily, milk: once in a while, cheese: every other day no fractures Hypertension HTN diagnosed at age 28 , has been on chlorthalidone 75 mg daily since then (48 plus 25) , also on amlodipine 5 mg daily and olmesartan 30 mg daily no history of stroke or sudden cardiac in the family He does have history of JOCELYN, doesnt use CPAP No stroke or or heart ache No blood clot No history of DM Never smoker Stopped chlorthalidone August 2024 Blood work done in October 2024 showed renin was very suppressed at 0.07, however aldosterone was not super elevated at 6, no hypokalemia, kidney function worse normal, 24 hour urine evaluation showed high sodium level of 260 however the creatinine was also high, still that is sodium is very high Interval history Current blood pressure regimen amlodipine 5 mg daily, olmesartan 30 mg daily, atenolol 25 mg daily Blood pressure 138/92 Physical exam General: sitting comfortably in no acute distress HEENT: normocephalic/atraumatic, moist oral mucosa Neck: supple, symmetrical Cardiac: normal heart sounds Pulm: normal breath sounds B/L, no added breath sounds Abd: not distended, no tenderness Extremities: bilateral lymphedema noted with chronic venous stasis changes Neuro: AAO x3, Speech: normal, no facial droop, moving all 4 extremities Laboratory Tests 12/17/20 02/02/21 02/03/21 13:50 14:53 06:04 Creatinine Estimated GFR Calcium 9.9 9.0 D 8.5 Albumin 3.7 25-OH Vitamin D Total TSH PTH Intact 02/05/21 02/07/21 02/08/21 03:55 05:19 06:03 Creatinine Estimated GFR Calcium 9.0 8.5 8.5 Albumin 2.9 L D 25-OH Vitamin D Total TSH PTH Intact 05/10/23 06/26/24 07/26/24 11:11 10:53 13:16 Creatinine 1.10 1.05 Estimated GFR > 60 > 60 Calcium 11.1 H D 10.9 H 10.5 H Albumin 3.9 3.9 3.9 25-OH Vitamin D Total 21.5 L TSH 3.01 PTH Intact 171.4 H Laboratory Tests 11/12/24 11/12/24 08:00 11:06 Sodium 141 Potassium 3.8 Estimated GFR > 60 Calcium 10.2 Ionized Calcium 5.7 H Phosphorus 2.7 Albumin 4.0 Renin 0.07 L Aldosterone 6 25-OH Vitamin D Total 30.3 PTH Intact 127.6 H Ur 24 Hour Volume 1425 Ur Creatinine mg/dL 215.92 Ur Creatinine 24 Hour 3.1 H Ur Sodium 24 Hour 260.8 H Ur Calcium 24 Hr 247 Calcium/Creat 24 Hr 84 EXAMINATION: US KIDNEY BILATERAL 12/11 HISTORY: R79.89 - Other specified abnormal findings of blood chemistry TECHNIQUE: Real-time grayscale ultrasound imaging of the kidneys was performed and images were reviewed. COMPARISON: There are no prior studies available for comparison. FINDINGS: The examination is limited by patient body habitus. Right kidney: The right kidney measures 11.5 x 6.2 x 6.2 cm. Renal parenchymal echotexture and thickness are normal. There are no masses. There is no hydronephrosis or renal calculi. Left Kidney: The left kidney measures 13.3 x 7.0 x 5.0 cm. Renal parenchymal echotexture and thickness are normal. There are no masses. There is no hydronephrosis or renal calculi. US/US renal BI IMPRESSION: Unremarkable renal ultrasound. Electronically signed by: Rick Bell MD 12/12/2024 02:02 PM EDT [facility] Medical History (Updated 03/17/25 @ 10:24 by Hilary Zuñiga MD) Primary hyperaldosteronism Elevated parathyroid hormone Hypercalcemia HTN (hypertension) No known health problems Surgical History No pertinent past surgical history Family History Father No problems noted. Mother No problems noted. 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 Patient Tobacco Use Status: Never used Tobacco service: No Current occupational status: disabled Physical Exam Vital Signs: Last Vital Signs Pulse 76 03/17/25 10:00 BP 138/92 H 03/17/25 10:00 Pulse Ox 97 03/17/25 10:00 Oxygen Delivery Method Room Air 03/17/25 10:00 BMI result Body Mass Index 76.4 Assessment & Plan Assessment & Plan (1) Hypercalcemia: Code(s): E83.52 - Hypercalcemia Category: Medical Plan: 33-year-old male with past medical history significant for morbid obesity, lymphedema and hypertension coming in today for follow up of PTH mediated hypercalcemia.Blood work from June 2024 showed calcium elevated at 10.9, albumin of 3.9, corrected calcium would be 10.8. Blood work from July 2024 showed calcium elevated at 10.5, with albumin of 3.9, corrected calcium would be 10.4, concurrent vitamin-D level of 21.5 ng/mL and PTH elevated at 171.4. He had prior normal calcium levels up until April 2023 when he was noted to have a calcium level of 11.1. He was on chlorthalidone since age 28 for hypertension. No history of kidney stones, no history of fractures. Normal kidney function. Stopped chlorthalidone in August 2024. Blood work from October 2024 showed vitamin-D has improved to 30.3, calcium remains elevated with a ionized calcium at 5.7, total calcium of 10.2, with albumin of 4, normal kidney function, PTH elevated at 127.6. 24 hour urine calcium level of 247, with a calcium creatinine ratio of 84, this is on the lower side especially given his 24 hour urine creatinine was elevated so if that was normal, his calcium would even be lower. While his fractional excretion of calcium is coming out to be 0.007 which is less than 0.01, suspicion of FHH, however he is still has poor nutritional intake of calcium, and says that he has not really been following the instructions of incorporating more calcium in diet. I suspect the urine calcium is low because of that. Plus he has had normal calcium levels previously in 2020 so unlikely to be FHH. Regardless with the improved vitamin-D , calcium and PTH remain elevated. On vitamin-D 1000 units daily. Kidney function is okay. Given that he is less than 50 years old he would meet surgical criteria. Renal ultrasound November 2024 did not show any kidney stones. DEXA scan could not be obtained as he is above the weight limit for DEXA machines for both our hospital as well as outside hospitals. He now claims somewhat improved intake of calcium, I would like to repeat 24 hour urine calcium levels. We will also repeat his blood work. Given his young age if he does indeed have underlying primary hyperparathyroidism, he should be a good candidate for surgery. Especially given his young age even if he has primary hyperparathyroidism we should do genetic testing. For now workup is ongoing. Plan: -continue vitamin-D 1000 units daily -continue trying to incorporate 2-3 servings of calcium rich foods daily -repeat blood work and 24 hour urine calcium levels ordered -consider genetics referral (2) Elevated parathyroid hormone: Code(s): R79.89 - Other specified abnormal findings of blood chemistry Category: Medical Plan: See above (3) HTN (hypertension): Code(s): I10 - Essential (primary) hypertension Category: Medical Qualifiers: Hypertension type: primary hypertension Qualified Code(s): I10 - Essential (primary) hypertension Plan: Has a history of essential hypertension diagnosed at age 28 which is very early. Also has a history of JOCELYN. Plus ethnicity has higher prevalence of primary hyperaldosteronism. Stopped chlorthalidone August 2024 Current blood pressure regimen amlodipine 5 mg daily, olmesartan 30 mg daily, atenolol 25 mg daily Blood pressure at 138/92 today Blood work done in October 2024 showed renin was very suppressed at 0.07, aldosterone at 6, no hypokalemia, kidney function worse normal, 24 hour urine evaluation showed high sodium level of 260 however the creatinine was also high, still that is sodium is very high Given that he is on an ARB, and despite that his renin is quite suppressed, this is highly suspicious for primary hyperaldosteronism. Given aldosterone levels are now measured with a LC MS technique, even lower levels can be concerning. I would like to repeat his 24 hour urine sodium and aldosterone levels. Given his salt intake seems to be high based on prior levels, this might add information as a aldosterone suppression test. I would also like to obtain a CT scan of the adrenals. I explained to him in detail today that I suspect underlying aldosterone over secretion, discussed that while there is option of medical management, given his young age, surgical management should also be considered if he has lateralization. Briefly discussed with him need for adrenal vein sampling in the near future. But 1st we will repeat testing. Plan: -ordered 24 hour urine aldosterone, 24 hour urine sodium levels -ordered 24 hour urine cortisol levels -ordered renin, aldosterone, BMP -ordered CT adrenal glands -continue current blood pressure regimen -follow up in 6-8 weeks to discuss results (4) Primary hyperaldosteronism: Code(s): E26.09 - Other primary hyperaldosteronism Category: Medical Plan: See above Plan I spent 30 minutes in reviewing the record, seeing the patient and documenting in the medical record. Orders: Orders Aldosterone Today E83.52 - Hypercalcemia, I10 - Essential (primary) hypertension, R79.89 - Other specified abnormal findings of blood chemistry Cortisol, Free 24Hr Urine Today E83.52 - Hypercalcemia, I10 - Essential (primary) hypertension, R79.89 - Other specified abnormal findings of blood chemistry Creatinine, 24 Hr Group Today E83.52 - Hypercalcemia, I10 - Essential (primary) hypertension, R79.89 - Other specified abnormal findings of blood chemistry Basic Metabolic Panel Today E83.52 - Hypercalcemia, I10 - Essential (primary) hypertension, R79.89 - Other specified abnormal findings of blood chemistry Sodium, 24Hr Urine Group Today E83.52 - Hypercalcemia, I10 - Essential (primary) hypertension, R79.89 - Other specified abnormal findings of blood chemistry Calcium, 24 Hr Ur Today E83.52 - Hypercalcemia, I10 - Essential (primary) hypertension, R79.89 - Other specified abnormal findings of blood chemistry Calcium Today E83.52 - Hypercalcemia, I10 - Essential (primary) hypertension, R79.89 - Other specified abnormal findings of blood chemistry Calcium, Ionized Today E83.52 - Hypercalcemia, I10 - Essential (primary) hypertension, R79.89 - Other specified abnormal findings of blood chemistry Phosphorus Today E83.52 - Hypercalcemia, I10 - Essential (primary) hypertension, R79.89 - Other specified abnormal findings of blood chemistry CT adrenal wo/w IV con Today E26.09 - Other primary hyperaldosteronism, I10 - Essential (primary) hypertension Renin Today E83.52 - Hypercalcemia, I10 - Essential (primary) hypertension, R79.89 - Other specified abnormal findings of blood chemistry Aldosterone, 24Hr Urine Today E83.52 - Hypercalcemia, I10 - Essential (primary) hypertension, R79.89 - Other specified abnormal findings of blood chemistry Vitamin D 25-OH Total Today E83.52 - Hypercalcemia, I10 - Essential (primary) hypertension, R79.89 - Other specified abnormal findings of blood chemistry Parathyroid Hormone Intact Today E83.52 - Hypercalcemia, I10 - Essential (primary) hypertension, R79.89 - Other specified abnormal findings of blood chemistry Albumin Level Today E83.52 - Hypercalcemia, I10 - Essential (primary) hypertension, R79.89 - Other specified abnormal findings of blood chemistry Magnesium Today E83.52 - Hypercalcemia, I10 - Essential (primary) hypertension, R79.89 - Other specified abnormal findings of blood chemistry Creatinine Today E83.52 - Hypercalcemia, I10 - Essential (primary) hypertension, R79.89 - Other specified abnormal findings of blood chemistry Patient Instructions: do Ct scan, someone will call you to schedule this Do a set of blood work Do 24 hr urine test 24 hr urine collection instructions You have been asked to collect your urine for 24 hours You must choose a 24 hour period of time when you will be home. The morning of the first day, DISCARD the FIRST morning void and then note the time. You will collect every single void from then on for 24 hours. For example, if you wake up at 6am and urinate, flush down that void. You will then collect every drop of urine all day and all night through 6am the following day. You will urinate one last time at 6am for the collection. The jug of urine must be kept in the refrigerator until you bring it to the lab. Coding Level of Care Code Est Pt Level 4 (42206) Diagnoses Hypercalcemia E83.52 Elevated parathyroid hormone R79.89 Primary hypertension I10 Hypertension type: primary hypertension Primary hyperaldosteronism E26.09 Time Spent (min) 30
[2025-03-17 10:00] VITALS: BP 138/92; PULSE 76; O2SAT 97; BMI 76.4
--- OUTSIDE RECORDS SUMMARY | 2025-03-17 10:50 | XMS_ITS | Clinical Summary ---
Author Organization [employer] Address [address] [facility] 7t [place] [address] Care Team Providers Care Clinical Research Administrator Name Role Phone Yane Cisneros MARCIANO Primary Care Provider [phone] Allergies No known active allergies Medications Blood Pressure Monitor kitIndications:P rimary hypertension Use to check BP twice weekly and when symptomatic 1 kit 3 Active metFORMIN (Glucophage) 1000 MG tabletIndication s:Severe obesity (BMI >= 40) (CMS/HCC) (HCC) TAKE ONE TABLET BY MOUTH EVRY MORNING WITH BREAKFAST AND ANOTHER TABLET WITH DINNER 180 tablet 1 4 Active Cholecalciferol (Vitamin D3) 25 MCG (1000 UT) chewable tablet Chew 1 tablet Once per day. 90 tablet 3 5 Active olmesartan (BENIcar) 40 MG tablet TAKE 1 TABLET(40 MG) BY MOUTH AT BEDTIME 90 tablet 3 5 Active atenolol (Tenormin) 50 MG tablet Take 1 tablet (50 mg) by mouth Once per day. 90 tablet 1 5 Active amLODIPine (Norvasc) 5 MG tabletIndication s:Primary hypertension TAKE 1 TABLET(5 MG) BY MOUTH IN THE MORNING 90 tablet 3 5 Active Active Problems Problem Noted Date Diagnosed Date Hypercalcemia 11/02/2024 Overview (01/29/2025): Lab Results Component Value Date CA 10.2 11/12/2024 CA 10.5 (H) 07/26/2024 CA 10.9 (H) 06/26/2024 CA 11.1 (H) 05/10/2023 CA 10.2 09/26/2022 Lab Results Component Value Date PARATHYROID 127.6 (H) 11/12/2024 Assessment & Plan (01/29/2025 5:25 PM EDT): - Primary vs secondary hyperparathyroidism - possible med SE - [facility] Endo Consult August 2024 - Dr. Zuñiga. Plan for repeat labs and urine collection. Chlorthalidone discontinued. - [facility] Endo Consult November 2024 - Dr. Zuñiga. Plan to cont Vit D 1000 units daily. Repeat 24-hr urine calcium levels. Suspect either primary hyperparathyroidism or FHH due to Vit D improvement, but calcium and PTH remain elevated Bone density: pending Renal US: completed 12/12/24, unremarkable Assessment & Plan (11/02/2024 5:17 PM EDT): - Primary vs secondary hyperparathyroidism - possible med SE - [facility] Endo Consult August 2024 - Dr. Zuñiga. Plan for repeat labs and urine collection. Chlorthalidone discontinued. Lymphedema of both lower extremities 09/18/2022 Assessment & Plan (01/23/2023 8:31 PM EDT): Return to lymphedema clinic once stocking ordered/available Reports has not heard regarding DIRECTOR OF GIFT PLANNING eval. Message previously sent to [facility] Forms team for follow up. Outgoing TC placed to [facility] OT clinic regarding further care, encouraged to call pt directly. Assessment & Plan (11/08/2022 8:04 AM EDT): Return to lymphedema clinic once stocking ordered/available Reports has not heard regarding DIRECTOR OF GIFT PLANNING eval. Message sent to [facility] Forms team for follow up. Assessment & Plan (09/18/2022 2:49 PM EDT): -Continue working with [facility] OT -DME script generated: Bilateral thigh high Juxtafit compression stockings, 40- 50 mmHg -OT requesting DIRECTOR OF GIFT PLANNING assistance for pt, although pt declines interest in DIRECTOR OF GIFT PLANNING. Reports able to complete independently. Will not initiate any further eval at this time. Lymphedema of scrotum 07/31/2022 Overview (09/18/2022): -[facility] Urology eval Apr 2022: was found to have significant scrotal lymphedema, scrotal Elephantitis - Due to the severe nature of the scrotal lymphedema - surgical reconstruction is complex -Continue following with [facility] OT clinic Assessment & Plan (10/10/2022 7:54 PM EDT): Referral for eval for DIRECTOR OF GIFT PLANNING services Assessment & Plan (09/18/2022 2:50 PM EDT): -DME script for male genital pad sent to following location as requested: [facility] Severe obesity (BMI >= 40) ([facility]) 07/31/2022 Assessment & Plan (01/29/2025 5:23 PM EDT): - Did not lose > 5% BW with Zepbound therefore no longer covered by insurance. Dwayne would prefer to focus on lifestyle interventions first at this time. Aware of other treatment options for weight management. - Self-directed goals: Reduce soda intake: 1 can per day maximum. Drink water instead. Chips: limit amount and/or switch to healthier version Exercise: walking 45 minutes every day Assessment & Plan (11/02/2024 5:27 PM EDT): - Wegovy med start: November 2023 (576 lbs) - Zepbound med start: Jun 2024 (550 lbs) - Today's weight: 569 lbs - Continues with physical activity and nutrition interventions Assessment: weight increase by 19 lbs over the past 4 months. Pt suspects due to overeating. Strategies reviewed. Plan: Increase to Zepbound 7.5mg subcutaneous weekly. Reviewed med safety and SE Assessment & Plan (06/26/2024 3:27 PM EST): [...] 1000mg BID -Weg[employer] approval on 10/16/23. PA# [id number] to on 04/16/24 -Reviewed medication use, SE, [...] 1000mg BID -Wegovy approval on 10/16/23. PA# [id number] to on 04/16/24 -Reviewed medication use, SE, [...] 1000mg BID -Wegovy approval on 10/16/23. DAMARIS# [id number] to on 04/16/24 -Reviewed medication use, SE, [...] mmol/L Potassium 3.4 3.3 - 5.1 mmol/L Chloride 102 96 - 108 mmol/L Carbon Dioxide 31 (H) 22 - 29 mmol/L Anion Gap 11 (L) 12 - 20 Urea Nitrogen (BUN) 14 9 - 16 mg/dL Creatinine 1.08 0.5 - 1.4 mg/dL Estimated Glomerular Filt Rate >60 Glucose 99 60 - 115 mg/dL Calcium 11.1 (H) 8.4 - 10.2 mg/dL Bilirubin, Total 0.6 0.0 - 1.0 mg/dL Aspartate Amino Transferase 22 5 - 37 U/L Alanine Aminotransferase 26 0 - 40 U/L Total Protein 8.3 (H) 6.5 - 8.0 g/dL Albumin Level 3.9 3.5 - 5.0 g/dL Alkaline Phosphatase 90 39 - 117 U/L TSH reflex Free T4 2.75 0.32 - 4.0 uIU/mL Assessment & Plan (05/13/2023 6:41 PM EST): -Referrals: declines interest at this time -Acanthosis nigricans noted on neck, consider relation to insulin resistance -START metformin 500mg BID. Reviewed med safety and SE -Repeat labs: TSH, CMP, lipid, A1c Primary hypertension 01/27/2022 Overview (01/29/2025): -Goal <140/90 mmHg -Denies symptoms including chest pain, SOB, MEYER, dizziness, blurry vision, N/V/D -Continue with healthy lifestyle interventions Current med regimen: amlodipine 5mg QAM Olmesartan 40mg QPM Atenolol 50mg daily Previous meds: - Chlorthalidone 75mg QAM (DC August 2024 d/t hypercalcemia) Baseline EKG 10/10/22 with significant artifact, although no concerning ST or T wave changes ED/urgent care precautions Assessment & Plan (01/29/2025 5:29 PM EDT): - Previous well controlled, but readings now elevated s/p dc clorthalidone - Plan: Increase to atenolol 50 mg daily. Record home BP readings. Follow up in 3 months, but call sooner if more than 25% readings above goal. Assessment & Plan (11/02/2024 5:22 PM EDT): - Previous well controlled, but readings now elevated s/p dc clorthalidone - Pt had been out of atenolol, and therefore had not been taking - Plan: restart atenolol. Record home BP readings. Follow up in 3 months, but call sooner if more than 25% readings above goal. Assessment & Plan (06/26/2024 3:30 PM EST): [...] Encounters Date Type Department Care Team Description 01/29/2025 10:30 AM EDT Office Visit [facility] MEDICINE [address], [place] [phone] Yane Cisneros FNP Severe obesity (BMI >= 40) (CMS/HCC) (Primary Dx); Primary hypertension; Hypercalcemia 01/29/2025 Travel 01/28/2025 Telephone [facility] MEDICINE [address], [place] [phone] Yane Cisneros FNP CHART PREP 01/14/2025 Telephone [facility] MED & PEDS [address] [place], [place] [phone] Yane Cisneros FNP 12/20/2024 Refill [facility] MEDICINE [address], [place] [phone] Yane Cisneros FNP from Last 3 Months Immunizations Immunization Administration Dates Next Due Influenza injectable quadrivalent preservative f ree 05/10/2023,09/12/2022 Influenza, seasonal, injectable, preservative fr ee 06/26/2024 Pfizer Covid-19 Vaccine 12+ Bivalent 09/12/2022 Tdap 09/12/2022 Social History Tobacco Use Types Packs/Day Years Used Date Smoking Tobacco: Never Passive Smoke Exposure: Never Smokeless Tobacco: Never Tobacco Cessation:Counseling Given: Not Answered Alcohol Use Standard Drinks/Week Comments Never 0 (1 standard drink = 0.6 oz pur e alcohol) Depression Answer Date Recorded Patient Health Questionnaire-9 Score 4 10/23/2024 Patient Health Questionnaire-9 Score 4 10/23/2024 Last PHQ-9: Questionnaire Data Not on file 0 10/23/2024 Housing Stability Answer Date Recorded What is your housing situation today? I have [place] 10/23/[address] you li ve. Do you have problems with any of the following? Pests such as bugs, ants, or mice 10/23/2024 Food Insecurity Answer Date Recorded Within the [...] to shut off services in your home? I am not sure 10/23/2024 Depression Answer Date Recorded Patient Health Questionnaire-2 Score 1 10/23/2024 Internet Access Answer Date Recorded Internet Access Q1 Yes 10/23/2024 Internet Access Q2 Not on file 10/23/2024 Sex and Gender Information Value Date Recorded Sex Assigned at Male 04/18/2022 10:39 AM EDT Legal Sex Male 10:39 AM EDT Gender Identity Male 04/18/2022 10:39 AM EDT Sexual Orientation Choose not to disclose 2021 10:39 AM EDT Last Filed Vital Signs Vital Sign Reading Time Taken Comments Blood Pressure 134/90 01/29/2025 10:41 AM EDT no chest pain, palpitations, or SOB Pulse 80 01/29/2025 10:41 AM EDT Temperature 35.8 C (96.4 F) 01/29/2025 10:41 AM EDT Respiratory Rate 20 01/29/2025 10:4 1 AM EDT Oxygen Saturation 95% 01/29/2025 10: 41 AM EDT Inhaled Oxygen Concentration - - Weight 257 kg (567 lb 3.2 oz) 01/29/2025 10:41 AM EDT Height 185.4 cm (6' 1 ) 01/29/2025 10:4 1 AM EDT Body Mass Index 74.83 01/29/2025 10:41 AM EDT Plan of Treatment Health Maintenance Due Date Last Done Comments Family Planning (PISQ) 11/05/2003 HPV Vaccines (1 - Male 3-dos e series) 11/05/2003 Hepatitis B Vaccines (1 of 3 - 19+ 3-dose series) 11/05/2007 COVID-19 Vaccine ( - 2024-2 6 season) 2025 09/12/2022, 03/24/2021, 03/03/2021 Influenza Vaccine (#1) 2025 , 05/10/2023, 09/12/2022 Alcohol/Substance Use Screening 06/26/2025 06/26/2024 Depression Screening 10/23/2025 10/23/2024, 10/23/2024 Disability Screening 10/23/2025 10/23/2024 SDOH Screening 10/23/2025 10/23/2024 Tobacco Screening 01/29/2026 01/29/2025 Lipid Panel 06/26/2029 06/26/2024, 05/10/2023, 03/07/2022 DTaP/Tdap/Td Vaccines (2 - T d or Tdap) 09/12/2032 09/12/2022 Zoster Vaccines (1 of 2) 2038 RSV Patients and Patients Aged 60 years or older (1 - 1-dose 75+ series) 11/05/2063 HIV Screening Completed 06/26/2024, 03/07/2022 Hepatitis C Screening Completed 06/26/2024 , 03/07/2022, 03/07/2022 HIB Vaccines Aged Out No longer eligi ble based on patient's age to complete this topic Hepatitis A Vaccines Aged Out No long er eligible based on patient's age to complete this topic IPV Vaccines Aged Out No longer eligi ble based on patient's age to complete this topic Meningococcal B Vaccine Aged Out No l onger eligible based on patient's age to complete this topic Meningococcal Vaccine Aged Out No basilia cindy eligible based on patient's age to complete this topic Pneumococcal Vaccine: Pediatrics (0 to 5 Years) and At-Risk Patients (6 to 49) Years Aged Out No longer eligible b ased [...] EST Healthcare maintenance from Last 3 Months or Most Recently Relevant to Health Maintenance Results * Hepatitis C Viral RNA, Quantitative, Real-Time PCR (06/26/2024 10:58 AM EST) Hepatitis C Viral Load <15 NOT DETECTED NOT DETECTED IU/mL [facility] HCV Log PCR <1.18 NOT DETECTED NOT DETECTED Log IU/mL [facility] Comment:For additional infor gayathri, please refer [email or web address].Schoolfy/faq/SYK93q9(This link is being provided for informational/educational purposes only.)THIS TEST WAS PERFORMED AT:[employer] [place] [id number] DAILY MD Blood 06/26/2024 10:5 8 AM EST 06/26/2024 1:05 PM EST us Yane Cisneros [employer] LAB BLOOD ORDERABLES Final Res ult [facility] [address] [place] [phone] * HIV-1/2 Antigen and Antibodies, Fourth Generation, with Reflexes (06/26/2024 10:53 AM EST) HIV AB/AG Nonreactive Nonreactive [facility] Comment:HIV-1 p24 Ag and/or HIV-1/HIV-2 Ab not detected.A test result that is nonreactive does not exclude thepossibility of exposure to or infection with HIV-1 and/orHIV-2. Nonreactive results in this assay for individualswith prior exposure to HIV-1 and/or HIV-2 may be due toantigen and antibody levels that are below the limit ofdetection of this assay.The Pony Zero HIV Ag/Ab Combo assay result andsupplemental assay results should be interpreted inconjunction with the patient's clinical presentation,history and other laboratory results. If the results areinconsistent with clinical evidence, additional testing issuggested to confirm the result. Blood Venous blood specimen / Unknown 06/26/2024 10:53 AM EST 06/26/2024 1:05 PM EST us Yane Cisneros [facility] LAB BLOOD ORDERABLES Final Res ult [facility] [address] [place] [phone] * (ABNORMAL) Lipid Panel, Standard (06/26/2024 10:53 AM EST) Triglycerides 100 <150 mg/dL [facility] Comment:Desirable Triglyceri de: less than 150 mg/dLBorderline High Triglyceride 150-199 mg/dLHigh Triglyceride: 200-499 mg/dLVery High Triglyceride: greater than or equal to 5OO mg/dL Cholesterol 181 <200 mg/dL [facility] Comment:Desirable Cholestero l: less than 200 mg/dLBorderline High Cholesterol: 200-239 mg/dLHigh Cholesterol: greater than 239 mg/dL LDL Cholesterol Calculated 122(H) <100 mg/dL [facility] Comment:Desirable LDL: less than 100 mg/dLNear Optimal/Above Optimal LDL: 110- 129 mg/dLBorderline High LDL: 130-159 mg/dLHigh LDL: 160-189 mg/dLVery High LDL: greater than or equal to 190 mg/dL HDL Cholesterol 39(L) >40 mg/dL [facility] Comment:Desirable HDL: great er than 40 mg/dL Note: This HDL assay may give artificially low results in patients with liver disease. Blood Venous blood specimen / Unknown 06/26/2024 10:53 AM EST 06/26/2024 1:05 PM EST us Yane Cisneros [employer] LAB BLOOD ORDERABLES Final Res ult [facility] [address] [place] [address] [phone] from Last 3 Months or Most Recently Relevant to Health Maintenance Insurance [employer] Care Teams Clinical Research Administrator Relationship Specialty Start Date End Date Yane Cisneros FNP [address] [place] [address] PCP - General Family Medicine 11/26/21
--- OUTSIDE RECORDS SUMMARY | 2025-03-17 10:50 | XMS_ITS | Encounter Summary ---
Author Organization [employer] Address [address] [facility] [address]t [place] [address] Care Team Providers Care Taper Operator Name Role Phone Yane Cisneros Primary Care Provider [phone] Encounter Details Date Type Department Care Team ([facility] st Contact Info) Description 09/19/2022 Abstract [facility] MED[facility]INE [address] [place] [address] Yane Cisneros FNP [address] [place] [address] Social History Tobacco Use Types Packs/Day Years [...] on filedocumented in this encounter Care Teams Taper Operator Relationship Specialty Start Date End Date Yane Cisneros FNP [address] [place] [address] PCP - General Family Medicine 11/26/21 documented as of this encounter
--- OUTSIDE RECORDS SUMMARY | 2025-03-17 10:50 | XMS_ITS | Encounter Summary ---
Author Organization [email or web address] Address [address] [place] [address] Care Team Providers Care Tannery Gummer Name Role Phone Yane Cisneros Primary Care Provider [phone] Encounter Details Date Type Department Care Team (Late st Contact Info) Description 07/24/2024 Orders Only [facility] MEDICINE [address] [place] [address] Yane Cisneros FNP [address] [place] [address] Hypercalcemia (Primary Dx) Social History Tobacco Use [...] Diagnoses Orde r Schedule Protein, Total and Protein Electrophoresis Lab Routine Hypercalcemia Expected: 07/24/2024 (Approximate), Expires: [...] Intact 171.4(H) 8.7 - 77.1 pg/mL [facility] Blood Venous blood specimen / Unknown 07/26/2024 1:16 PM EST 07/26/2024 4:15 PM EST us Yane Cisneros HOSPICE SPIRITUAL CARE COORDINATOR LAB BLOOD ORDERABLES Final Res ult [facility] [address] [place] [phone] * (ABNORMAL) Vitamin D, 25-Hydroxy, Total, Immunoassay (07/26/2024 1:16 PM EST) Vitamin D 25-OH Total 21.5(L) >30 ng/mL [facility] Comment:Health Based Referen ce Values*< 20 ng/mL Sbkaxaizn32-49 ng/mL Insufficient> 30 ng/mL Sufficient*Zander CAMARGO. N [...] 07/26/2024 4:15 PM EST us Yane Cisneros HOSPICE SPIRITUAL CARE COORDINATOR LAB BLOOD ORDERABLES Final Res ult [facility] [address] [place] [phone] * (ABNORMAL) Comprehensive Metabolic Panel (07/26/2024 1:16 PM EST) Sodium 141 135 - 145 mmol/L [facility] Potassium 3.4 3.3 - 5.1 mmol/L [facility] Chloride 99 96 - 108 mmol/L [facility] Carbon Dioxide 29 22 - 29 mmol/L [facility] Anion Gap 16 12 - 20 [facility] Urea Nitrogen (BUN) 17(H) 9 - 16 mg/dL [facility] Creatinine, Serum 1.05 0.5 - 1.4 mg/dL [facility] Estimated Glomerular Filt Rate >60 [facility] Comment:Chronic Kidney Disea se: Estimated GFR < 60 mL/min/1.37n3[place] Kidney Disease: Estimated GFR < 15 mL/min/1.73m2 Glucose 91 60 - 115 mg/dL [facility] Calcium 10.5(H) 8.4 - 10.2 mg/dL [facility] Bilirubin, Total 0.6 0.0 - 1.0 mg/dL [facility] Aspartate Amino Transferase 28 5 - 37 U/L [facility] Alanine Aminotransferase 31 0 - 40 U/L [facility] Total Protein 8.2(H) 6.5 - 8.0 g/dL [facility] Albumin Level 3.9 3.5 - 5.0 g/dL [facility] Alkaline Phosphatase 91 39 - 117 U/L [facility] Blood Venous blood specimen / Unknown 07/26/2024 1:16 PM EST 07/26/2024 4:15 PM EST us Yane [employer] LAB BLOOD ORDERABLES Final Res ult Performing Organization Address City/State/[facility] Co de Phone Number [facility] [address] [place] [phone] documented in this encounter Visit Diagnoses Diagnosis Hypercalcemia- Primary documented in this encounter Additional Health Concerns Assessment Noted Time PHQ-9 Depression Total Score: 6 11/22/19 24 11:50 AM EDT documented as of this encounter Care Teams Tannery Gummer Relationship Specialty Start Date End Date Yane Cisneros FNP [address] [place] [address] PCP - General Family Medicine 11/26/21 documented as of this encounter
--- OUTSIDE RECORDS SUMMARY | 2025-03-17 10:50 | XMS_ITS | Encounter Summary ---
Author Organization [employer] Address [address] [facility] [address]t [place] [address] Care Team Providers Care Signal Technician Name Role Phone Yane Cisneros Primary Care Provider [phone] Reason for Visit * Reason Onset Date Comments FYI 09/18/2024 Encounter Details Date Type Department Care Team (Late st Contact Info) Description 09/18/2024 Telephone [facility] MEDICINE [address] [place] [address] Yane Cisneros FNP [address] [place], [place] [phone] FYI Social History Tobacco Use Types Packs/Day [...] encounter Miscellaneous Notes * Telephone Encounter - Mauricio Zarco - 09/18/2024 10:21 AM EDT Tc from pt informing that was seen by a provider in [address] [place] [address] zia Sarah was inform that medication chlorthalidone ([place]) 25 MG tablet has to be discontinued. Please return call to patient [phone] documented in this encounter Plan of Treatment Not on file documented as of this encounter Visit Diagnoses Not on filedocumented in this encounter Additional Health Concerns Assessment Noted Time PHQ-9 Depression Total Score: 6 11/22/19 24 11:50 AM EDT documented as of this encounter Care Teams Signal Technician Relationship Specialty Start Date End Date Yane Cisneros FNP [address] [place] [phone] PCP - General Family Medicine 11/26/21 documented as of this encounter
--- OUTSIDE RECORDS SUMMARY | 2025-03-17 10:50 | XMS_ITS | Encounter Summary ---
Author Organization [employer] Address [address] [facility] [address] [place] [address] Care Team Providers Care Alemite Operator Name Role Phone Yane Cisneros Primary Care Provider [phone] Reason for Visit * Reason Onset Date Comments FYI 01/16/2023 Encounter Details Date Type Department Care Team (Late st Contact Info) Description 01/16/2023 Telephone [facility] MEDICINE [address] [place] [address] Yane Cisneros FNP [address] [place] [address] FYI Social History Tobacco Use Types Packs/Day [...] Miscellaneous Notes * Telephone Encounter - Jenna Edwardsjia - 01/16/2023 3:54 PM EDT Tc from [facility] would like to inform PCP that they faxed over a form with pt information for PCP to review. Advised will forward message as a FYI. * Telephone Encounter - Juana Jimi - 01/16/2023 2:03 PM EDT Tc from [facility] returning PCP call. Please contact [facility] at [phone] documented in this encounter Plan of Treatment Not on file documented as of this encounter Visit Diagnoses Not on filedocumented in this encounter Additional Health Concerns Assessment Noted Time PHQ-9 Depression Total Score: 2 11/08/19 23 3:55 PM EDT documented as of this encounter Care Teams Alemite Operator Relationship Specialty Start Date End Date Yane Cisneros FNP [address] [place] [address] PCP - General Family Medicine 11/26/21 documented as of this encounter
== END 2025-03-17 10:27 | disposition home or self-care (01) ==
LOC: HO.ENCR 09:52
PROVIDERS: PCP Registered Nurse; Visit Provider Student in an Organized Health Care Education/Training Program
DX: E83.52 Hypercalcemia (principal); R79.89 Other specified abnormal findings of blood chemistry; I10 Essential (primary) hypertension; E26.09 Other primary hyperaldosteronism
CPT/HCPCS: 99214

== ENCOUNTER → 2025-03-17 09:51 | Outpatient (BNVA) | payer MEDICAID, SELFPAY | PROVIDERS: PCP Registered Nurse; Visit Provider Student in an Organized Health Care Education/Training Program | DX: E83.52 Hypercalcemia (principal); R79.89 Other specified abnormal findings of blood chemistry; I10 Essential (primary) hypertension; E26.09 Other primary hyperaldosteronism | CPT/HCPCS: 99212 ==

== ENCOUNTER 2025-03-19 13:22 | Outpatient (REF) | payer MEDICAID, SELFPAY ==
[2025-03-20 11:27] LABS: Albumin Level 4.2 g/dL (3.5-5.0); Anion Gap 10 (12-20); Blood Urea Nitrogen 14 mg/dL (9-16); Calcium 10.6 mg/dL (8.4-10.2); Carbon Dioxide 29 mmol/L (22-29); Chloride 108 mmol/L (96-108); Estimated Glomerular Filt Rate > 60; Magnesium 2.0 mg/dL (1.6-2.6); Potassium 4.3 mmol/L (3.3-5.1); Sodium 143 mmol/L (135-145)
[2025-03-20 11:29] LABS: Parathyroid Hormone Intact 108.3 pg/mL (8.7-77.1)
--- OUTSIDE RECORDS SUMMARY | 2025-03-20 11:47 | XMS_ITS | Encounter Summary ---
Author Organization [employer] Address [address] [facility] [address] [place] [address] Care Team Providers Care Music Historian Name Role Phone Yane Cisneros Primary Care Provider Encounter Details Date Type Department Care Team (Late st Contact Info) Description 07/24/2024 Orders Only [facility] [address] [place] [address] Yane Cisneros FNP [address] [place] [address] Hypercalcemia (Primary Dx) Social History Tobacco Use [...] Hormone, Intact 171.4(H) 8.7 - 77.1 pg/mL [facility] Blood Venous blood specimen / Unknown 07/26/2024 1:16 PM EST 07/26/2024 4:15 PM EST us Yane Cisneros MOTHERS HELPER LAB BLOOD ORDERABLES Final Res ult [facility] [address] [place] [phone] * (ABNORMAL) Vitamin D, 25-Hydroxy, Total, Immunoassay (07/26/2024 1:16 PM EST) Vitamin D 25-OH Total 21.5(L) >30 ng/mL [facility] Comment:Health Based Referen ce Values*< 20 ng/mL [id number] ng/mL Insufficient> 30 ng/mL Sufficient*Zander CAMARGO. N [...] 07/26/2024 4:15 PM EST us Yane Cisneros MOTHERS HELPER LAB BLOOD ORDERABLES Final Res ult [facility] [address] [place] [phone] * (ABNORMAL) Comprehensive Metabolic Panel (07/26/2024 1:16 PM EST) Sodium 141 135 - 145 mmol/L [facility] Potassium 3.4 3.3 - 5.1 mmol/L [facility] Chloride 99 96 - 108 mmol/L [facility] Carbon Dioxide 29 22 - 29 mmol/L [facility] Anion Gap 16 12 - 20 [facility] Urea Nitrogen (BUN) 17(H) 9 - 16 mg/dL [facility] Creatinine, Serum 1.05 0.5 - 1.4 mg/dL [facility] Estimated Glomerular Filt Rate >60 [facility] Comment:Chronic Kidney Disea se: Estimated GFR < 60 mL/min/1.24n4Iqslma Kidney Disease: Estimated GFR < 15 mL/min/1.73m2 Glucose 91 60 - 115 mg/dL [facility] Calcium 10.5(H) 8.4 - 10.2 mg/dL [facility] Bilirubin, Total 0.6 0.0 - 1.0 mg/dL [facility] Aspartate Amino Transferase 28 5 - 37 U/L [facility] Alanine Aminotransferase 31 0 - 40 U/L [facility] Total Protein 8.2(H) 6.5 - 8.0 g/dL [facility] Albumin Level 3.9 3.5 - 5.0 g/dL [facility] Alkaline Phosphatase 91 39 - 117 U/L [facility] Blood Venous blood specimen / Unknown 07/26/2024 1:16 PM EST 07/26/2024 4:15 PM EST us Yane TARIQ LAB BLOOD ORDERABLES Final Res ult Performing Organization Address City/State/[facility] Co de Phone Number [facility] [address] [place] [phone] [phone] documented in this encounter Visit Diagnoses Diagnosis Hypercalcemia- Primary documented in this encounter Additional Health Concerns Assessment Noted Time PHQ-9 Depression Total Score: 6 11/22/19 24 11:50 AM EDT documented as of this encounter Care Teams Music Historian Relationship Specialty Start Date End Date Yane Cisneros FNP [address] [place] [address] PCP - General Family Medicine 11/26/21 documented as of this encounter
--- OUTSIDE RECORDS SUMMARY | 2025-03-20 11:47 | XMS_ITS | Encounter Summary ---
Author Organization [employer] Address [address] [facility] [address] [place] [address] Care Team Providers Care Change Attendant Name Role Phone Yane Cisneros Primary Care Provider [phone] Encounter Details Date Type Department Care Team ([facility] st Contact Info) Description 09/19/2022 Abstract [facility] [address] [place] [address] Yane Cisneros FNP [address] [place] [address] Social History Tobacco Use Types Packs/Day Years [...] on filedocumented in this encounter Care Teams Change Attendant Relationship Specialty Start Date End Date Yane Cisneros FNP [address] [place] [address] PCP - General Family Medicine 11/26/21 documented as of this encounter
--- OUTSIDE RECORDS SUMMARY | 2025-03-20 11:47 | XMS_ITS | Encounter Summary ---
Author Organization [employer] Address [address] [facility] [address] [place] [address] Care Team Providers Care Clinical Data Research Name Role Phone Yane Cisneros Primary Care Provider [phone] Reason for Visit * Reason Onset Date Comments FYI 01/16/2023 Encounter Details Date Type Department Care Team (Late st Contact Info) Description 01/16/2023 Telephone [facility] [address] [place] [address] Yane Cisneros FNP [address] [place] [address] FYI Social History Tobacco Use Types Packs/Day [...] - 01/16/2023 3:54 PM EDT Tc from [facility] would like to inform PCP that they faxed over a form with pt information for PCP to review. Advised will forward message as a FYI. * Telephone Encounter - Juana Jimi - 01/16/2023 2:03 PM EDT Tc from [facility] returning PCP call. Please contact [facility] at [phone] documented in this encounter Plan of Treatment Not on file documented as of this encounter Visit Diagnoses Not on filedocumented in this encounter Additional Health Concerns Assessment Noted Time PHQ-9 Depression Total Score: 2 11/08/19 23 3:55 PM EDT documented as of this encounter Care Teams Clinical Data Research Relationship Specialty Start Date End Date Yane Cisneros FNP [address] [place] [address] PCP - General Family Medicine 11/26/21 documented as of this encounter
--- OUTSIDE RECORDS SUMMARY | 2025-03-20 11:47 | XMS_ITS | Encounter Summary ---
Author Organization [employer] Address [address] [facility] 7[address] [place] [address] Care Team Providers Care Research Support Specialist Name Role Phone aYne Cisneros Primary Care Provider [phone] Reason for Visit * Reason Onset Date Comments FYI 09/18/2024 Encounter Details Date Type Department Care Team (Late st Contact Info) Description 09/18/2024 Telephone [facility] [address] [place] [address] Yane Cisneros FNP [address] [place], [place] [phone] FYI Social History Tobacco Use Types Packs/Day [...] that was seen by a provider in [address] [place] [address] zia Sarah was inform that medication chlorthalidone (Hygroton) 25 MG tablet has to be discontinued. Please return call to patient [phone] documented in this encounter Plan of Treatment Not on file documented as of this encounter Visit Diagnoses Not on filedocumented in this encounter Additional Health Concerns Assessment Noted Time PHQ-9 Depression Total Score: 6 11/22/19 24 11:50 AM EDT documented as of this encounter Care Teams Research Support Specialist Relationship Specialty Start Date End Date Yane Cisneros FNP [address] [place] [phone] PCP - General Family Medicine 11/26/21 documented as of this encounter
--- OUTSIDE RECORDS SUMMARY | 2025-03-20 11:47 | XMS_ITS | Clinical Summary ---
Author Organization [employer] Address [address] [facility] [address] [place] [address] Care Team Providers Care Cinnamon Grinder Name Role Phone Yane Cisneros MARCIANO Primary Care Provider [phone] Allergies No known active allergies Medications Blood [...] secondary hyperparathyroidism - possible med SE - [facility] Consult August 2024 - Dr. Zuñiga. Plan for repeat labs and urine collection. Chlorthalidone discontinued. - [facility] [place] November 2024 - Dr. Zuñiga. Plan to cont Vit D 1000 units daily. Repeat 24-hr urine calcium levels. Suspect either primary hyperparathyroidism or FHH due to Vit D improvement, but calcium and PTH remain elevated Bone density: pending Renal US: completed 12/12/24, unremarkable Assessment & Plan (11/02/2024 5:17 PM EDT): - Primary vs secondary hyperparathyroidism - possible med SE - [facility] [place] August 2024 - Dr. Zuñiga. Plan for repeat labs and urine collection. Chlorthalidone discontinued. Lymphedema of both lower extremities 09/18/2022 Assessment & Plan (01/23/2023 8:31 PM EDT): Return to lymphedema clinic once stocking ordered/available Reports has not heard regarding TRAINING DEVELOPMENT MANAGER eval. Message previously sent to [facility] Forms team for follow up. Outgoing TC placed to [facility] clinic regarding further care, encouraged to call pt directly. Assessment & Plan (11/08/2022 8:04 AM EDT): Return to lymphedema clinic once stocking ordered/available Reports has not heard regarding TRAINING DEVELOPMENT MANAGER eval. Message sent to [facility] Forms team for follow up. Assessment & Plan (09/18/2022 2:49 PM EDT): -Continue working with [facility] -DME script generated: Bilateral thigh high Juxtafit compression stockings, 40- 50 mmHg -OT requesting TRAINING DEVELOPMENT MANAGER assistance for pt, although pt declines interest in TRAINING DEVELOPMENT MANAGER. Reports able to complete independently. Will not initiate any further eval at this time. Lymphedema of scrotum 07/31/2022 Overview (09/18/2022): -[facility] [place] Apr 2022: was found to have significant scrotal lymphedema, scrotal Elephantitis - Due to the severe nature of the scrotal lymphedema - surgical reconstruction is complex -Continue following with [facility] clinic Assessment & Plan (10/10/2022 7:54 PM EDT): Referral for eval for TRAINING DEVELOPMENT MANAGER services Assessment & Plan (09/18/2022 2:50 PM EDT): -DME script for male genital pad sent to following location as requested: [facility] Severe obesity (BMI >= 40) ([facility]) 07/31/2022 Assessment & Plan (01/29/2025 [...] 1000mg BID -[employer] approval on 10/16/23. PA# [id number] to on 04/16/24 -Reviewed medication use, SE, [...] 1000mg BID -[employer] approval on 10/16/23. PA# [id number] to on 04/16/24 -Reviewed medication use, SE, [...] metformin 1000mg BID -[employer] approval on 10/16/23. DAMRAIS# [id number] to on 04/16/24 -Reviewed medication use, SE, [...] Description 01/29/2025 10:30 AM EDT Office Visit [facility] [address] [place], [place] [phone] Yane Cisneros FNP Severe obesity (BMI >= 40) (CMS/HCC) (Primary Dx); Primary hypertension; Hypercalcemia 01/29/2025 Travel 01/28/2025 Telephone [facility] [address] [place], [place] [phone] Yane Cisneros FNP CHART PREP 01/14/2025 Telephone [facility] [address] [place], [place] [phone] Yane Cisneros FNP 12/20/2024 Refill [facility] [address] [place], [place] [phone] Yane Cisneros FNP from Last 3 Months [...] Load <15 NOT DETECTED NOT DETECTED IU/mL [facility] HCV Log PCR <1.18 NOT DETECTED NOT DETECTED Log IU/mL [facility] Comment:For additional infor gayathri, please refer tohttp://education.[employer]/faq/CVR53c6(This link is being provided for informational/educational purposes only.)THIS TEST WAS PERFORMED AT:[facility] [place] [id number] DAILY MD Blood 06/26/2024 10:5 8 AM EST 06/26/2024 1:05 PM EST us Yane Cisneros LICENSE AND PERMIT SPECIALIST LAB BLOOD ORDERABLES Final Res ult [facility] [address] [place] [address] [phone] * HIV-1/2 Antigen and Antibodies, Fourth Generation, with Reflexes (06/26/2024 10:53 AM EST) HIV AB/AG Nonreactive Nonreactive [facility] Comment:HIV-1 p24 Ag and/or HIV-1/HIV-2 Ab not detected.A test result that is nonreactive does not exclude thepossibility of exposure to or infection with HIV-1 and/orHIV-2. Nonreactive results in this assay for individualswith prior exposure to HIV-1 and/or HIV-2 may be due toantigen and antibody levels that are below the limit ofdetection of this assay.The Gravity HIV Ag/Ab Combo assay result andsupplemental assay results should be interpreted inconjunction with the patient's clinical presentation,history and other laboratory results. If the results areinconsistent with clinical evidence, additional testing issuggested to confirm the result. Blood Venous blood specimen / Unknown 06/26/2024 10:53 AM EST 06/26/2024 1:05 PM EST us Yane Cisneros [facility] LAB BLOOD ORDERABLES Final Res ult [facility] [address] [place] [phone] * (ABNORMAL) Lipid Panel, Standard (06/26/2024 10:53 AM EST) Triglycerides 100 <150 mg/dL [facility] Comment:Desirable Triglyceri de: less than 150 mg/dLBorderline High Triglyceride 150-199 mg/dLHigh Triglyceride: 200-499 mg/dLVery High Triglyceride: greater than or equal to 5OO mg/dL Cholesterol 181 <200 mg/dL [facility] Comment:Desirable Cholestero l: less than 200 mg/dLBorderline High Cholesterol: 200-239 mg/dLHigh Cholesterol: greater than 239 mg/dL LDL Cholesterol Calculated 122(H) <100 mg/dL [facility] Comment:Desirable LDL: less than 100 mg/dLNear Optimal/Above Optimal LDL: 110- 129 mg/dLBorderline High LDL: 130-159 mg/dLHigh LDL: 160-189 mg/dLVery High LDL: greater than or equal to 190 mg/dL HDL Cholesterol 39(L) >40 mg/dL [facility] Comment:Desirable HDL: great er than 40 mg/dL Note: This HDL assay may give artificially low results in patients with liver disease. Blood Venous blood specimen / Unknown 06/26/2024 10:53 AM EST 06/26/2024 1:05 PM EST us Yane Cisneros LICENSE AND PERMIT SPECIALIST LAB BLOOD ORDERABLES Final Res ult [facility] [address] [place] [address] [phone] from Last 3 Months or Most Recently Relevant to Health Maintenance Insurance [employer] Care Teams Cinnamon Grinder Relationship Specialty Start Date End Date Yane Cisneros FNP [address] [place] [address] PCP - General Family Medicine 11/26/21
[2025-03-20 14:33] LABS: Creatinine, mg/dL 137.77; Creatinine, mg/dL 138.73; Sodium, 24 Hr Urine 225.0 mmol/L
[2025-03-20 14:35] LABS: Total Volume 24 Hour Urine 2225 mL
[2025-03-21 15:13] LABS: Calcium, Ionized 5.7 mg/dL (4.7-5.5)
[2025-03-21 18:58] LABS: Calcium/Creatinine Ratio 102 mg/g creat (30-210); Creatinine 24Hr Urine 3.05 g/24 h (0.50-2.15)
[2025-03-28 08:09] LABS: Aldosterone, 24Hr Urine <1.1 mcg/24 h; Creatinine 24Hr Urine 2.94 g/24 h (0.50-2.15); Total Volume 2225 mL
[2025-03-28 15:59] LABS: Total Volume, 24 Hr Urine 2225 mL
== END 2025-03-19 13:23 | disposition home or self-care (01) ==
LOC: HO.LAB 13:22
PROVIDERS: Visit Provider Student in an Organized Health Care Education/Training Program
DX: I10 Essential (primary) hypertension (principal); E83.52 Hypercalcemia; R79.89 Other specified abnormal findings of blood chemistry
CPT/HCPCS: 36415; 80048; 82040; 82088; 82306; 82330; 82340; 82530; 82570; 83735; 83970; 84100; 84244; 84300

== ENCOUNTER 2025-04-22 13:25 | Outpatient (REF) | payer MEDICAID, SELFPAY ==
--- NOTE | ~2025-04-22 | CT_ITS ---
EXAMINATION: CT ABDOMEN PELVIS ADRENALS WITHOUT THEN WITH IV CONTRAST HISTORY: I10 - Essential (primary) hypertension COMPARISON: There are no prior studies available for comparison. TECHNIQUE: CT scan of the abdomen was performed before and after the intravenous administration of 85 mL Omnipaque 350. Postcontrast images were obtained through the adrenal glands in the portal venous and delayed phases to calculate adrenal washout. Coronal and sagittal reformatted images were generated and reviewed. Oral contrast material was not administered per department protocol. This CT exam was performed with one or more of the following dose reduction techniques: automated exposure control, adjustment of the mA and/or kV according to patient size, use of iterative reconstruction technique. DLP: 1979 mGy-cm ABDOMEN: The examination is limited by patient body habitus. LOWER CHEST: The visualized lung bases are clear. There is no pleural effusion. LIVER: The liver is normal in size and contour. No liver mass is identified. The hepatic and portal veins are patent. GALLBLADDER / BILE DUCTS: The gallbladder is unremarkable. There is no intra or extrahepatic biliary ductal dilatation. SPLEEN: The spleen is normal in size. No focal splenic lesion is identified. PANCREAS: The pancreas is unremarkable in appearance. ADRENAL GLANDS: Within normal limits. No adrenal mass is identified. KIDNEYS/RETROPERITONEUM: No renal calculi are identified. There is no hydronephrosis. There is a 1.8 cm probable cyst at the upper pole of the right kidney. LYMPH NODES: No lymphadenopathy is seen in the upper abdomen. VASCULATURE: The abdominal aorta is normal in caliber. MESENTERY/PERITONEUM: No free fluid. No masses. There is no free intraperitoneal gas. STOMACH: The stomach is unremarkable. SMALL BOWEL: The visualized small bowel is normal in caliber. COLON: The visualized portion of the colon is unremarkable. BONES / SOFT TISSUES: No suspicious bony or soft tissue abnormalities. CT/CT adrenal wo/w IV con IMPRESSION: No evidence of an adrenal mass. Electronically signed by: Rick Bell MD 04/22/2025 02:22 PM [facility]
[2025-04-22] MEDS: iohexoL 350 MG/ML 100 ML INFUS..BTL IV (14:10)
== END 2025-04-22 13:26 | disposition home or self-care (01) ==
LOC: HO.CT 13:25
PROVIDERS: PCP Registered Nurse; Visit Provider Student in an Organized Health Care Education/Training Program
DX: E26.09 Other primary hyperaldosteronism (principal); I10 Essential (primary) hypertension
CPT/HCPCS: 74170; Q9967

== ENCOUNTER → 2025-04-22 13:27 | Outpatient (BNV) | payer MEDICAID, SELFPAY | PROVIDERS: PCP Registered Nurse; Visit Provider Radiology Diagnostic Radiology | DX: I10 Essential (primary) hypertension (principal) | CPT/HCPCS: 74170 ==